=== PATIENT | female | born 1945 | race African-American/Black ===

== ENCOUNTER 2017-05-03 22:06 | Inpatient (IN) | payer OTHER ==
[~2017-05-03] VITALS: Ht 177.8 cm; Wt 100.8 kg
[2017-05-03 22:09] VITALS: BP 176/96
[2017-05-03] MEDS ORDERED: Ipratropium 0.02% Inh Soln 2.5ml UD HHN ONE (22:30)
[2017-05-03] MEDS ORDERED: Solu-MEDROL 125mg Inj IVP ONE (22:30)
[2017-05-03] MEDS ORDERED: Albuterol ud Inhalation HHN ONE (22:30)
[2017-05-03 23:09] LABS: EOSINOPHILS % (AUTO) 0.8 % (0.0-3.0); LYMPHOCYTES % (AUTO) 18.3 % (20.0-45.0); MEAN CORPUSCULAR HEMOGLOBIN 34.6 PG (27.0-31.0); MEAN CORPUSCULAR HGB CONC 32.3 G/DL (32.0-36.0); MEAN CORPUSCULAR VOLUME 107 FL (80-99); MEAN PLATELET VOLUME 9.3 FL (6.5-10.1); MONOCYTES % (AUTO) 5.2 % (1.0-10.0); NEUTROPHILS % (AUTO) 74.6 % (45.0-75.0); PLATELET COUNT 183 K/UL (150-450); RED BLOOD COUNT 3.56 M/UL (4.20-5.40); RED CELL DISTRIBUTION WIDTH 13.5 % (11.6-14.8); WHITE BLOOD COUNT 10.1 K/UL (4.8-10.8)
[2017-05-03 23:26] LABS: TROPONIN I < 0.30 ng/mL (<=0.30)
[2017-05-03 23:27] LABS: ALBUMIN/GLOBULIN RATIO 1.3 (1.0-2.7); CREATININE 1.3 mg/dL (0.5-0.9); GLOMERULAR FILTRATION RATE 49.2 mL/min (>60); POTASSIUM 3.9 mEQ/L (3.4-4.9); TOTAL PROTEIN 6.5 g/dL (6.6-8.7)
--- NOTE | 2017-05-03 23:36 | Emergency Room Report ---
History of Present Illness General Chief Complaint: Dyspnea/Respdistress Source: Patient Present Illness HPI Is a 71-year-old female with a history of COPD. Also history of CHF. She had a long hospital admission to [place] recently. She presents with increasing shortness of breath the last few days. No nausea no vomiting. No fever or chills. No coughing. Worse with exertion. Had to increase her oxygenation at home. Denies any other complaint. No swelling. Allergies: Coded Allergies: No Known Allergies (Unverified , 05/03/17) Patient History Past Medical History: see triage record, old chart reviewed, CAD, CHF, COPD Past Surgical History: other Pertinent Family History: none Social History: Denies: smoking Now: No Immunizations: other Reviewed Nursing Documentation: PMH: Agreed, PSxH: Agreed Nursing Documentation-PMH Past Medical History: No History, Except For Hx Hypertension: Yes Hx COPD: Yes History Of Psychiatric Problem: Yes - depression Review of Systems Eye: Denies: eye pain, blurred vision ENT: Denies: ear pain, nose congestion, throat swelling Respiratory: Reports: shortness of breath, Denies: cough Cardiovascular: Denies: chest pain, palpitations Gastrointestinal: Denies: abdominal pain, diarrhea, nausea, vomiting Musculoskeletal: Denies: back pain, joint pain Skin: Denies: rash Neurological: Denies: headache, numbness Endocrine: Denies: increased thirst, increased urine Hematologic/Lymphatic: Denies: easy bruising All Other Systems: negative except mentioned in HPI Physical Exam Vital Signs Date Time Temp Pulse Resp B/P (MAP) Pulse Ox O2 Delivery O2 Flow Rate FiO2 05/03/17 22:05 98.8 112 21 176/96 96 Room Air 05/03/17 22:36 21 05/03/17 22:36 3.0 vitals with tachycardia and high blood pressure Sp02 EP Interpretation: abnormal - Pulse ox 85% on 2 L. General Appearance: mild distress Head: normocephalic, atraumatic Eyes: bilateral eye PERRL, bilateral eye EOMI ENT: hearing grossly normal, normal pharynx Neck: full range of motion, supple, no meningismus Respiratory: chest non-tender, respiratory distress - Mild, decreased breath sounds Cardiovascular #1: regular rate, rhythm, no murmur Gastrointestinal: normal bowel sounds, non tender, no mass, no organomegaly, no bruit, non-distended Musculoskeletal: back normal, normal range of motion Neurologic: alert, oriented x3 Psychiatric: mood/affect normal Skin: warm/dry Procedures Critical Care Time Critical Care Time Critical care is mandated in this patient who presented with acute on chronic respiratory failure secondary to CHF. Patient require my urgent intervention to attenuate the risks of metabolic collapse which may lead to cardiovascular collapse and . Critical care time is 35 minutes excluding any reportable procedure. Critical care time included evaluation, multiple reevaluation, looking at old charts, interpreting laboratory and diagnostic data, discussing case with patient and family and consultants, and charting. Medical Decision Making Diagnostic Impression: Primary Impression: Acute and chronic respiratory failure with hypoxia Additional Impressions: Acute exacerbation of CHF (congestive heart failure) Qualified Codes: I50.9 - Heart failure, unspecified COPD with exacerbation Acute hypernatremia ER Course She presents with acute on chronic respiratory failure. She diuresed about 200- 300 mL after Lasix. Oxygenation improved. She felt better. Will admit for further workup. Her doctor is at [facility] and there is no but there. Patient be admitted here under service of Dr. Decker. Laboratory Tests Test 05/03/17 22:45 White Blood Count 10.1 K/UL (4.8-10.8) Red Blood Count 3.56 M/UL (4.20-5.40) L Hemoglobin 12.3 G/DL (12.0-16.0) Hematocrit 38.2 % (37.0-47.0) Mean Corpuscular Volume 107 FL (80-99) H Mean Corpuscular Hemoglobin 34.6 PG (27.0-31.0) H Mean Corpuscular Hemoglobin Concent 32.3 G/DL (32.0-36.0) Red Cell Distribution Width 13.5 % (11.6-14.8) Platelet Count 183 K/UL (150-450) Mean Platelet Volume 9.3 FL (6.5-10.1) Neutrophils (%) (Auto) 74.6 % (45.0-75.0) Lymphocytes (%) (Auto) 18.3 % (20.0-45.0) L Monocytes (%) (Auto) 5.2 % (1.0-10.0) Eosinophils (%) (Auto) 0.8 % (0.0-3.0) Basophils (%) (Auto) 1.0 % (0.0-2.0) Sodium Level 150 mEQ/L (135-145) H Potassium Level 3.9 mEQ/L (3.4-4.9) Chloride Level 102 mEQ/L (98-107) Carbon Dioxide Level 35 mEQ/L (20-30) H Anion Gap 13 (5-15) Blood Urea Nitrogen 30 mg/dL (7-23) H Creatinine 1.3 mg/dL (0.5-0.9) H Estimat Glomerular Filtration Rate 49.2 mL/min (>60) Glucose Level 153 mg/dL (74-106) H Calcium Level 9.0 mg/dL (8.6-10.2) Total Bilirubin 0.3 mg/dL (0.0-1.2) Aspartate Amino Transf (AST/SGOT) 24 U/L (5-40) Alanine Aminotransferase (ALT/SGPT) 14 U/L (3-33) Alkaline Phosphatase 59 U/L (35-104) Total Creatine Kinase 84 U/L (26-140) Creatine Kinase MB 2.8 ng/mL (< 3.8) Creatine Kinase MB Relative Index 3.3 Troponin I < 0.30 ng/mL (<=0.30) Pro-B-Type Natriuretic Peptide 8453 pg/mL (0-125) H Total Protein 6.5 g/dL (6.6-8.7) L Albumin 3.7 g/dL (3.5-5.2) Globulin 2.8 g/dL Albumin/Globulin Ratio 1.3 (1.0-2.7) Lab Results Impression labs showed hypernatremia EKG Diagnostic Results Rate: normal Rhythm: NSR ST Segments: no acute changes Rhythm Strip Diag. Results Rhythm Strip Time: 23:35 EP Interpretation: yes Rate: 96 Rhythm: NSR, no PVC's, no ectopy Chest X-Ray Diagnostic Results Chest X-Ray Diagnostic Results : Chest X-Ray Ordered: Yes # of Views/Limited/Complete: 1 View Indication: Shortness of Breath Interpretation: no pneumothorax, other - Cardiomegaly. increased interstitial markings. Impression: Other - cardiomegaly with mild vascular congestion Electronically Signed by: Electronically signed by Arden Bardales MD Last Vital Signs Date Time Temp Pulse Resp B/P (MAP) Pulse Ox O2 Delivery O2 Flow Rate FiO2 05/03/17 22:53 88 18 98 Nasal Cannula 2.0 28 05/03/17 22:09 98.8 176/96 Status: improved Disposition: ADMITTED INPATIENT Condition: Serious ARDEN BARDALES M.D. May 03, 2017 23:36
[2017-05-03 23:37] LABS: CKMB 2.8 ng/mL (< 3.8)
[2017-05-04] VITALS (7 sets, daily range): BP systolic 132–148; BP diastolic 61–93
[2017-05-04] MEDS ORDERED: NITROGLYCERIN0.4 MG SL (01:48)
[2017-05-04] MEDS ORDERED: GABAPENTIN300 MG ORAL (01:48)
[2017-05-04] MEDS ORDERED: ATORVASTATIN CA80 MG ORAL (01:48)
[2017-05-04] MEDS ORDERED: CENTRUM SILVER1 EAC4 PO (01:48)
[2017-05-04] MEDS ORDERED: FUROSEMIDE40 MG ORAL (01:48)
[2017-05-04] MEDS ORDERED: VENLAFAXINE HC225 MG ORAL (01:48)
[2017-05-04] MEDS ORDERED: NORVASC10 MG ORAL (01:48)
[2017-05-04] MEDS ORDERED: LISINOPRIL40 MG ORAL (01:48)
[2017-05-04] MEDS ORDERED: ASPIRIN81 MG ORAL (01:48)
[2017-05-04] MEDS ORDERED: SUPER B-50 COM1 EACH PO (01:48)
[2017-05-04] MEDS ORDERED: METOPROLOL SUCC50 MG ORAL (01:48)
[2017-05-04] MEDS ORDERED: BUSPIRONE HCL5 M2 ORAL (01:48)
[2017-05-04] MEDS ORDERED: Enalaprilat 2.5mg/2ml Inj IV ONE (02:15)
[2017-05-04] MEDS ORDERED: Albuterol/Ipratropium 3ml neb HHN SCH (07:00)
[2017-05-04 09:13] LABS: MEAN CORPUSCULAR HGB CONC 31.8 G/DL (32.0-36.0); MEAN CORPUSCULAR VOLUME 107 FL (80-99); MEAN PLATELET VOLUME 9.2 FL (6.5-10.1); PLATELET COUNT 188 K/UL (150-450); RED BLOOD COUNT 3.49 M/UL (4.20-5.40); WHITE BLOOD COUNT 5.7 K/UL (4.8-10.8)
[2017-05-04 09:32] LABS: ALBUMIN/GLOBULIN RATIO 1.2 (1.0-2.7); CALCIUM 9.2 mg/dL (8.6-10.2); CREATININE 1.2 mg/dL (0.5-0.9); GLOMERULAR FILTRATION RATE 53.9 mL/min (>60); POTASSIUM 3.9 mEQ/L (3.4-4.9); TOTAL PROTEIN 6.6 g/dL (6.6-8.7)
[2017-05-04 09:37] LABS: THYROID STIMULATING HORMONE 0.465 uIU/mL (0.300-4.500)
[2017-05-04 09:54] LABS: LYMPHOCYTES % (MANUAL) 13 % (20-45); NEUTROPHILS % (MANUAL) 82 % (45-75); TOTAL CELLS COUNTED 100
[2017-05-04 09:56] LABS: BAND NEUTROPHILS % (MANUAL) 0 % (0-8); BASOPHILS % (MANUAL) 0 % (0-2); EOSINOPHILS % (MANUAL) 0 % (0-3); PLATELET ESTIMATE ADEQUATE; PLATELET MORPHOLOGY NORMAL; STOMATOCYTES 1+
[2017-05-04] MEDS ORDERED: Nitroglycerin Subl 0.4mg tab SL PRN (10:00)
[2017-05-04] MEDS: Albuterol/Ipratropium 3ml neb HHN SCH ×3 (11:13→19:24)
--- NOTE | 2017-05-04 12:17 | Diagnostic Imaging Report ---
Indication: SOB Technique: One view of the chest Comparison: 07/22/2010 Findings: The heart is enlarged. There is bilateral diffuse interstitial edema. There are probably small pleural effusions bilaterally Impression: Bilateral interstitial edema and probable small bilateral pleural effusions Cardiomegaly
[2017-05-04] MEDS: BusPIRone 5mg Tab ORAL PRN (16:09)
--- NOTE | 2017-05-04 18:48 | History & Physical ---
History and Physical History & Physicial dict chf copd high Na KRIS ZAPATA May 04, 2017 18:48
[2017-05-04] MEDS: Furosemide 40mg tab ORAL SCH (20:00)
[2017-05-04] MEDS: Atorvastatin 80mg tab ORAL SCH (20:54)
[2017-05-05] VITALS (7 sets, daily range): BP systolic 99–128; BP diastolic 49–78
--- NOTE | 2017-05-05 03:15 | History and Physical Report ---
DATE OF ADMISSION: 05/04/2017 History Of Present Illness: This is a 71-year-old woman, who is admitted through the ED because of increasing shortness of breath for several days. She was recently discharged from [facility] after treatment for CHF and COPD. She is on home oxygen. She is a past heavy smoker. She has history of coronary artery disease. Past Medical History: COPD, hypertension, CHF, coronary artery disease, and depression. ALLERGIES: None. REVIEW OF SYSTEMS: Noted in the findings above. CODE STATUS: She desires no CPR. PHYSICAL EXAMINATION: GENERAL: The patient is alert and responds appropriately. Vital Signs: Stable but she was tachycardic and hypotensive when she arrived which has improved. The saturation was low at 85% on 2 L that improved to 92% on 4 L. She is no longer in distress. HEENT: Head is normocephalic. NECK: No jugular venous distention. CHEST: Decreased breath sounds. CARDIAC: Rhythm is regular. There is a grade 2 systolic murmur. ABDOMEN: Soft and nontender. Liver and spleen are not enlarged. EXTREMITIES: No clubbing, cyanosis, or edema. Laboratory and Diagnostic Studies: Notable for elevated BNP at 8000 and sodium elevated at 150. Chest x-ray shows interstitial edema and small effusions. IMPRESSION: 1. Respiratory failure. 2. Congestive heart failure with interstitial edema. 3. Chronic obstructive pulmonary disease. 4. Chronic kidney disease. 5. Hypertension. 6. Hypernatremia. Plan: The patient was given intravenous Lasix and hypotonic fluids to correct electrolytes and improve pulmonary edema. COPD seems stable at this time. Early discharge is anticipated. Jerel Decker M.D. DR: PETE JOB#: [id number] CC: Jerel Decker M.D.; Fax#: [phone] [facility]
[2017-05-05] MEDS: Albuterol/Ipratropium 3ml neb HHN PRN (05:14)
[2017-05-05 07:17] LABS: BASOPHILS % (AUTO) 0.6 % (0.0-2.0); EOSINOPHILS % (AUTO) 1.7 % (0.0-3.0); MEAN CORPUSCULAR HEMOGLOBIN 34.2 PG (27.0-31.0); MEAN CORPUSCULAR HGB CONC 31.8 G/DL (32.0-36.0); MEAN CORPUSCULAR VOLUME 107 FL (80-99); MEAN PLATELET VOLUME 8.9 FL (6.5-10.1); MONOCYTES % (AUTO) 6.1 % (1.0-10.0); NEUTROPHILS % (AUTO) 73.6 % (45.0-75.0); PLATELET COUNT 175 K/UL (150-450); RED BLOOD COUNT 3.41 M/UL (4.20-5.40); RED CELL DISTRIBUTION WIDTH 13.6 % (11.6-14.8); WHITE BLOOD COUNT 9.8 K/UL (4.8-10.8)
[2017-05-05] MEDS: Albuterol/Ipratropium 3ml neb HHN SCH ×4 (07:52→20:39)
[2017-05-05] MEDS: Lisinopril 20mg tab ORAL SCH (09:19)
[2017-05-05] MEDS: Furosemide 40mg tab ORAL SCH ×2 (09:20→18:03)
[2017-05-05] MEDS: Aspirin Baby 81mg ORAL SCH (09:22)
[2017-05-05] MEDS: Metoprolol Succinate XL 50mg tab ORAL SCH (09:22)
[2017-05-05] MEDS: Venlafaxine XR 75mg cap ORAL SCH (13:30)
--- NOTE | 2017-05-05 16:09 | Pulmonology Progress Note ---
Assessment/Plan Assessment/Plan 1. Respiratory failure. 2. Congestive heart failure with interstitial edema. 3. Chronic obstructive pulmonary disease. 4. Chronic kidney disease. 5. Hypertension. 6. Hypernatremia. Na normal dc IVF CHF controlled dc plan to home tomorrow Subjective Constitutional: Reports: no symptoms Respiratory: Denies: shortness of breath Allergies: Coded Allergies: No Known Allergies (Unverified , 05/03/17) Objective Last 24 Hour Vital Signs Date Time Temp Pulse Resp B/P (MAP) Pulse Ox O2 Delivery O2 Flow Rate FiO2 05/05/17 15:44 94 18 94 Nasal Cannula 2.0 05/05/17 15:27 98.2 91 18 107/49 94 Nasal Cannula 2.0 05/05/17 12:00 105 05/05/17 11:55 110 18 96 Nasal Cannula 2.0 05/05/17 11:45 105 18 96 Nasal Cannula 2.0 05/05/17 11:30 98.2 109 18 128/75 99 Nasal Cannula 2.0 05/05/17 09:22 95 120/78 05/05/17 09:22 95 120/78 05/05/17 09:19 120/78 05/05/17 08:07 96.3 95 18 120/78 93 Nasal Cannula 2.0 05/05/17 08:00 103 05/05/17 08:00 106 16 94 Nasal Cannula 2.0 05/05/17 07:50 106 18 93 Nasal Cannula 2.0 05/05/17 05:14 92 16 97 Nasal Cannula 2.0 05/05/17 04:00 98.0 99 20 114/63 98 Room Air 05/05/17 04:00 92 05/05/17 00:07 97.9 88 22 99/54 92 Nasal Cannula 2.0 05/05/17 00:00 111 05/04/17 20:48 97.9 98 20 136/74 96 Room Air 05/04/17 20:00 95 05/04/17 19:44 80 18 96 Nasal Cannula 2.0 05/04/17 19:24 97 16 96 Nasal Cannula 2.0 28 Intake and Output 05/05/17 05/06/17 19:00 07:00 Intake Total 610 ml Balance 610 ml Intake Oral 610 ml # Voids 2 General Appearance: no acute distress Respiratory/Chest: lungs clear Cardiovascular: normal rate Laboratory Tests 05/05/17 06:20: White Blood Count 9.8#, Red Blood Count 3.41L, Hemoglobin 11.7L, Hematocrit 36.7L, Mean Corpuscular Volume 107H, Mean Corpuscular Hemoglobin 34.2H, Mean Corpuscular Hemoglobin Concent 31.8L, Red Cell Distribution Width 13.6, Platelet Count 175, Mean Platelet Volume 8.9, Neutrophils (%) (Auto) 73.6, Lymphocytes (%) (Auto) 18.0L, Monocytes (%) (Auto) 6.1, Eosinophils (%) (Auto) 1.7, Basophils (%) (Auto) 0.6, Pro-B-Type Natriuretic Peptide 4074H Current Medications Medications (Trade) Dose Ordered Sig/Luis Miguel Route PRN Reason Start Time Stop Time Status Last Admin Dose Admin Acetaminophen (Tylenol) 650 mg Q4H PRN ORAL Mild Pain/Temp > 100.5 05/05/17 11:30 06/04/17 11:29 Albuterol/ Ipratropium (DuoNeb 0.5-3(2.5)mg/3ml) 3 ml Q2HR PRN HHN Shortness of Breath 05/04/17 06:15 05/09/17 06:14 05/05/17 05:14 Albuterol/ Ipratropium (DuoNeb 0.5-3(2.5)mg/3ml) 3 ml QIDRT HHN 05/04/17 11:00 05/09/17 06:59 05/05/17 15:44 Amlodipine Besylate (Norvasc) 5 mg DAILY ORAL 05/05/17 09:00 06/04/17 08:59 05/05/17 09:22 Aspirin (ASA) 81 mg DAILY ORAL 05/05/17 09:00 06/04/17 08:59 05/05/17 09:22 Atorvastatin Calcium (Lipitor) 80 mg BEDTIME ORAL 05/04/17 21:00 06/03/17 20:59 05/04/17 20:54 Buspirone HCl (Buspar) 5 mg DAILY PRN ORAL For Anxiety 05/04/17 10:00 06/03/17 09:59 05/04/17 16:09 Furosemide (Lasix) 40 mg BID ORAL 05/04/17 20:00 06/03/17 19:59 05/05/17 09:20 Gabapentin (Neurontin) 300 mg BEDTIME ORAL 05/04/17 21:00 06/03/17 20:59 05/04/17 20:55 Heparin Sodium (Porcine) (Heparin 5000 units/ml) 5,000 units EVERY 12 HOURS SUBQ 05/05/17 21:00 06/04/17 20:59 Lisinopril (Prinivil) 40 mg DAILY ORAL 05/05/17 09:00 06/04/17 08:59 05/05/17 09:19 Metoprolol Succinate (Toprol XL) 75 mg DAILY ORAL 05/05/17 09:00 06/04/17 08:59 05/05/17 09:22 Nitroglycerin (Ntg) 0.4 mg Q 5 MINS PRN SL chest pain 05/04/17 10:00 06/03/17 09:59 Venlafaxine HCl (Effexor-XR) 225 mg DAILY ORAL 05/05/17 12:30 06/04/17 12:29 05/05/17 13:30 Vitamin B Complex (Vitamin B Complex) 1 ea DAILY ORAL 05/05/17 09:00 06/04/17 08:59 05/05/17 09:19 KRIS ZAPATA May 05, 2017 16:09
[2017-05-05] MEDS: Atorvastatin 80mg tab ORAL SCH (20:27)
[2017-05-05] MEDS: Heparin 5000 units/ml inj SUBQ SCH (20:29)
[2017-05-06] MEDS: Albuterol/Ipratropium 3ml neb HHN PRN (00:15)
[2017-05-06 03:32] VITALS: BP 129/78
[2017-05-06] MEDS: BusPIRone 5mg Tab ORAL PRN (03:45)
[2017-05-06] MEDS: Albuterol/Ipratropium 3ml neb HHN SCH ×2 (07:21→11:47)
[2017-05-06 07:50] LABS: CALCIUM 9.3 mg/dL (8.6-10.2); CREATININE 1.2 mg/dL (0.5-0.9); GLOMERULAR FILTRATION RATE 53.9 mL/min (>60); POTASSIUM 3.9 mEQ/L (3.4-4.9)
[2017-05-06 08:00] VITALS: BP 138/67
[2017-05-06] MEDS: Metoprolol Succinate XL 50mg tab ORAL SCH (08:26)
[2017-05-06] MEDS: Furosemide 40mg tab ORAL SCH (08:27)
[2017-05-06] MEDS: Lisinopril 20mg tab ORAL SCH (08:27)
[2017-05-06 08:28] VITALS: BP 138/67
[2017-05-06] MEDS: Aspirin Baby 81mg ORAL SCH (08:28)
[2017-05-06] MEDS: Venlafaxine XR 75mg cap ORAL SCH (08:28)
[2017-05-06] MEDS: Heparin 5000 units/ml inj SUBQ SCH (08:28)
--- NOTE | 2017-05-06 15:17 | Cardiology Report ---
APPROVED REPORT EKG Measurement Heart [id number] Normal sinus rhythm Cannot rule out Anterior infarct, age undetermined Abnormal ECG
--- NOTE | 2017-05-09 11:01 | Discharge Summary ---
Discharge Summary Hospital Course Date of Admission May 04, 2017 at 00:52 Date of Discharge May 06, 2017 at 14:42 Admitting Diagnosis chf,copd exacerbation HPI Arabella Staley is a 71 year old female who was admitted on May 04, 2017 at 00: 52 for Congestive Heart Failure,Chronic Obstructive Hospital Course dc summary #[id number] Discharge Medications Continued Medications: Amlodipine Besylate (Norvasc) 10 Mg Tablet 10 MG ORAL DAILY, TAB Aspirin* (Aspirin*) 81 Mg Tab.chew 81 MG ORAL DAILY, TAB Atorvastatin Calcium* (Lipitor*) 80 Mg Tablet 80 MG ORAL BEDTIME, TAB Buspirone HCl* (Buspirone HCl*) 5 Mg Tablet 5 MG ORAL DAILY PRN for For Anxiety, TAB Furosemide* (Lasix*) 40 Mg Tablet 40 MG ORAL TWICE A DAY, TAB 0 Refills Gabapentin* (Gabapentin*) 300 Mg Capsule 300 MG ORAL BEDTIME, CAP Lisinopril* (Lisinopril*) 40 Mg Tablet 40 MG ORAL DAILY, TAB Metoprolol Succinate* (Metoprolol Succinate*) 50 Mg Tab.er.24h 75 MG ORAL DAILY, TAB Mu-Vits-Min Th/Lycopene/Lutein (Centrum Silver Tablet) 1 Each Tablet 1 EACH PO DAILY, TAB Nitroglycerin (Nitroglycerin) 0.4 Mg Tab.subl 0.4 MG SL PRN for chest pain , TAB Venlafaxine Hcl (Venlafaxine Hcl Er) 225 Mg Tab.er.24 225 MG ORAL DAILY, TAB Vitamin B Complex (Super B-50 Complex) 1 Each Capsule 1 EACH PO DAILY, CAP Discharge Condition Upon Discharge: stable Discharge Disposition Patient was discharged to Home with home health services Discharge Diagnoses: Discharge Instructions Discharge Instructions Special Instructions I have been assigned to complete a D/C Summary on this account. I was not involved in the patient management Sneha Gamble NP (Vanchtein) May 09, 2017 11:01
--- NOTE | 2017-05-10 01:30 | Discharge Summary 2 SIG ---
DATE OF ADMISSION: 05/04/2017 DATE OF DISCHARGE: 05/06/2017 Reason for Admission: 71-year-old female with a history of COPD, CHF, hypertension, coronary artery disease, and depression, presented to emergency department with increased shortness of breath for several days associated with exertion. She was recently discharged from [facility] after extensive treatment for CHF and COPD. She has a home oxygen and reported recent need to increase the O2 flow. She denied fever, chills, cough, nausea, vomiting, or leg swelling. In the emergency department the patient was tachycardic. Blood pressure was elevated - 176/96. Sodium-150. Pro BNP - 8453. Chest x-ray revealed bilateral interstitial edema. Troponin was negative. Creatinine -1.3. BUN-30. Initial pulse oximetry was 85% on 2 liters, which improved to 92% on 4 liters. The patient was admitted for further management. ADMITTING DIAGNOSES: 1. Acute on chronic respiratory failure with hypoxemia. 2. Congestive heart failure with interstitial edema. 3. Chronic obstructive pulmonary disease. 4. Acute hypernatremia. 5. Hypertension. 6. Chronic kidney disease. Hospital Stay: The patient was admitted to telemetry floor. Hypotonic solution initially was provided along with IV Lasix. Next day, sodium down to normal. IV fluids were discontinued. Renal parameters and electrolytes were closely monitored. Creatinine down to 1.2 prior to discharge. Pro BNP down to 4074 prior to discharge. Pulmonary status stable. No evidence of COPD exacerbation. Hypoxemia improved. CHF improved with diuretic. Supplemental oxygen was provided to keep saturation above 92%. Pulmonary toilet was provided as needed. Aspirin and statin were continued. Blood pressure was managed with SOFIA inhibitor, beta-tuan, and calcium channel tuan along with the Lasix. Lasix converted to oral prior to discharge. The patient was stable for discharge home with home health services. FINAL DIAGNOSES: 1. Acute on chronic respiratory failure with hypoxemia, resolved. 2. Congestive heart failure with interstitial edema. 3. Chronic obstructive pulmonary disease. 4. Acute hypernatremia, resolved. 5. Chronic kidney disease. 6. Hypertension. DISCHARGE MEDICATIONS: See medication reconciliation list. Discharge Instructions: The patient was discharged home with home health services. Follow up with primary medical doctor. Jerel Decker M.D. I have been assigned to dictate discharge summary on this account and I was not involved in the patient's management. Sneha GrossJameel garcia DR: CAR JOB#: [id number] CC: HUGH
== END 2017-05-06 14:42 | disposition home health service (06) | DRG 291 ==
LOC: EDBD 22:06 → EMR 23:00 → 2E 05-04 00:52 → EDBEDREQ 05-04 01:24 → 2E 05-04 23:45
DX: I50.9 Heart failure, unspecified (principal); J96.21 Acute and chronic respiratory failure with hypoxia; E87.0 Hyperosmolality and hypernatremia; Z99.81 Dependence on supplemental oxygen; Z66 Do not resuscitate; I25.10 Atherosclerotic heart disease of native coronary artery without angina pectoris; I12.9 Hypertensive chronic kidney disease with stage 1 through stage 4 chronic kidney disease, or unspecified chronic kidney disease; N18.9 Chronic kidney disease, unspecified; J44.9 Chronic obstructive pulmonary disease, unspecified
CPT/HCPCS: 36415; 71010; 80048; 80053; 82550; 82553; 83880; 84443; 84484; 85007; 85025; 93005; 94640; 94664; 94760; 99285; J7620

== ENCOUNTER 2017-07-06 05:17 | Inpatient (IN) | payer OTHER ==
[2017-07-06] VITALS (18 sets, daily range): BP systolic 94–128; BP diastolic 47–83
[~2017-07-06] VITALS: Ht 182.9 cm; Wt 97.1 kg
[~2017-07-06 05:17] MED LIST: ASPIRIN81 MG ORAL; ATORVASTATIN CA80 MG ORAL; BUSPIRONE HCL5 M2 ORAL; CENTRUM SILVER1 EAC4 PO; FUROSEMIDE40 MG ORAL; GABAPENTIN300 MG ORAL; LISINOPRIL40 MG ORAL; METOPROLOL SUCC50 MG ORAL; NITROGLYCERIN0.4 MG SL; NORVASC10 MG ORAL; SUPER B-50 COM1 EACH PO; VENLAFAXINE HC225 MG ORAL
[2017-07-06] MEDS ORDERED: Solu-MEDROL 125mg Inj IVP ONE (05:30)
--- NOTE | 2017-07-06 05:30 | Emergency Room Report ---
History of Present Illness General Chief Complaint: Dyspnea/Respdistress Source: Patient, Medical Record Present Illness HPI 71-year-old female brought in by ambulance with shortness of breath for 6 hours , from assisted. Patient is poor historian and unable to qualify what her shortness of breath feels like. She is not provide clear answers as to whether she has chest pain, fever chills , or cough. History of present illness is otherwise limited. Review of EMR shows history of COPD, CHF, hypertension, coronary artery disease, and depression. Patient was admitted here May 04 the also for shortness of breath. Patient had hypernatremia, CKD. An acute on chronic CHF exacerbation Allergies: Coded Allergies: No Known Allergies (Unverified , 05/03/17) Patient History Past Medical History: other - see history of present illness Past Surgical History: none Pertinent Family History: none Social History: Denies: smoking, alcohol use, drug use Now: No Immunizations: UTD Reviewed Nursing Documentation: PMH: Agreed, PSxH: Agreed Nursing Documentation-PMH Hx Cardiac Problems: Yes Hx Hypertension: Yes Hx COPD: Yes Hx Cancer: No Hx Gastrointestinal Problems: No History Of Psychiatric Problem: Yes - Anxiety Disorder, Major depressive disorder Hx Neurological Problems: No Review of Systems All Other Systems: limited - SOB Physical Exam Vital Signs Date Time Temp Pulse Resp B/P (MAP) Pulse Ox O2 Delivery O2 Flow Rate FiO2 07/06/17 05:12 99.9 83 19 103/79 89 Simple Mask Sp02 EP Interpretation: reviewed, abnormal General Appearance: normal inspection, well appearing, no apparent distress, alert, GCS 15, obese Head: normocephalic, atraumatic Eyes: bilateral eye PERRL, bilateral eye EOMI ENT: normal ENT inspection, hearing grossly normal, normal pharynx, no angioedema, normal voice Neck: normal inspection, full range of motion, supple, no bony tend Respiratory: normal inspection, speaking full sentences, other - poor air movement Cardiovascular #1: regular rate, rhythm, no edema Gastrointestinal: normal inspection, normal bowel sounds, non tender, soft, no guarding, no hernia Genitourinary: no CVA tenderness Musculoskeletal: normal inspection, back normal, normal range of motion, Justin' s Sign negative Neurologic: normal inspection, alert, responsive, county director welfare III-XII nml as tested, motor strength/tone normal, speech normal Psychiatric: normal inspection, judgement/insight normal, mood/affect normal Skin: normal inspection, normal color, no rash Medical Decision Making Diagnostic Impression: Primary Impression: Dyspnea Qualified Codes: R06.00 - Dyspnea, unspecified Additional Impression: Pneumonia Qualified Codes: J18.9 - Pneumonia, unspecified organism ER Course 71-year-old female with shortness of breath for 6 hours Complicated medical history includes COPD and CHF Now with COPD exacerbation likely due to bilateral pneumonia x-ray shows bilateral pneumonia, less likely acute CHF given in April x-ray shows pulmonary congestion and today's x-ray does not also if there is some CHF will improve with BiPAP, Lasix should not be given now given low-normal blood pressure has elevated white count - antibiotics given, blood cultures pending Improved COPD exacerbation after nebs on BiPAP, Solu-Medrol, and IV magnesium ECG is normal sinus rhythm no ischemia Endorsed to Dr Decker at 615am for [facility] admission [facility] EKG Diagnostic Results Rate: normal Rhythm: NSR ST Segments: no acute changes ASA given to the pt in ED: No Rhythm Strip Diag. Results EP Interpretation: yes Rate: 81 Rhythm: NSR, no PVC's, no ectopy Chest X-Ray Diagnostic Results Chest X-Ray Diagnostic Results : Chest X-Ray Ordered: Yes # of Views/Limited/Complete: 1 View Indication: Shortness of Breath EP Interpretation: Yes Interpretation: no pneumothorax, other - +cardiomegaly, newly seen pacemaker , left sided pleural effusion vs consolidation, right sided PNA Electronically Signed by: Dr Kris Francisco MD Last Vital Signs Date Time Temp Pulse Resp B/P (MAP) Pulse Ox O2 Delivery O2 Flow Rate FiO2 07/06/17 05:12 99.9 83 19 103/79 89 Simple Mask Status: improved Disposition: ADMITTED INPATIENT Condition: Serious KRIS FRANCISCO M.D. Jul 06, 2017 05:30
[2017-07-06 05:44] LABS: BASOPHILS % (AUTO) 1.3 % (0.0-2.0); EOSINOPHILS % (AUTO) 0.2 % (0.0-3.0); LYMPHOCYTES % (AUTO) 11.2 % (20.0-45.0); MEAN CORPUSCULAR HEMOGLOBIN 33.1 PG (27.0-31.0); MEAN CORPUSCULAR HGB CONC 30.7 G/DL (32.0-36.0); MEAN CORPUSCULAR VOLUME 108 FL (80-99); MEAN PLATELET VOLUME 9.2 FL (6.5-10.1); MONOCYTES % (AUTO) 5.2 % (1.0-10.0); PLATELET COUNT 167 K/UL (150-450); RED BLOOD COUNT 3.14 M/UL (4.20-5.40); RED CELL DISTRIBUTION WIDTH 12.7 % (11.6-14.8)
[2017-07-06] MEDS ORDERED: ACETAMINOPHEN325 M1 ORAL (05:49)
[2017-07-06] MEDS: Albuterol ud Inhalation HHN SCH ×3 (05:56→06:16)
[2017-07-06] MEDS: Ipratropium 0.02% Inh Soln 2.5ml UD HHN SCH ×3 (05:56→06:16)
[2017-07-06 06:06] LABS: CALCIUM 9.2 MG/DL (8.5-10.1); CHLORIDE 93 MMOL/L (98-107); CREATININE 1.6 MG/DL (0.55-1.30); GLOMERULAR FILTRATION RATE 38.8 mL/min (>60); POTASSIUM 4.9 MMOL/L (3.5-5.1); SODIUM 136 MMOL/L (136-145)
[2017-07-06] MEDS ORDERED: Azithromycin 500mg Inj IV ONE (06:12)
[2017-07-06] MEDS ORDERED: cefTRIAXone 2 GM in NS 55 ML IVPB ONE (06:15)
[2017-07-06] MEDS ORDERED: Azithromycin 500 MG in NS 275 ML IV ONE (06:15)
[2017-07-06 06:21] LABS: ALANINE AMINOTRANSFERASE 34 U/L (12-78); ALBUMIN/GLOBULIN RATIO 0.8 (1.0-2.7); ASPARTATE AMINO TRANSFERASE 30 U/L (15-37); CKMB 1.4 NG/ML (0.0-3.6); TOTAL PROTEIN 7.2 G/DL (6.4-8.2)
[2017-07-06 06:26] LABS: CARBON DIOXIDE 48 MMOL/L (21-32)
[2017-07-06 07:05] LABS: ABG BASE EXCESS 17.6; ABG PCO2 106.1 mmHg (35.0-45.0)
[2017-07-06 07:06] LABS: ABG ALLEN TEST POSITIVE
--- NOTE | 2017-07-06 08:08 | Emergency Room Report ---
History of Present Illness General Chief Complaint: Dyspnea/Respdistress Source: Patient, Medical Record Present Illness Allergies: Coded Allergies: No Known Allergies (Unverified , 05/03/17) Patient History Now: No Nursing Documentation-PMH Hx Cardiac Problems: Yes Hx Hypertension: Yes Hx COPD: Yes Hx Cancer: No Hx Gastrointestinal Problems: No History Of Psychiatric Problem: Yes - Anxiety Disorder, Major depressive disorder Hx Neurological Problems: No Physical Exam Vital Signs Date Time Temp Pulse Resp B/P (MAP) Pulse Ox O2 Delivery O2 Flow Rate FiO2 07/06/17 05:12 99.9 83 19 103/79 89 Simple Mask 07/06/17 05:40 50 Procedures Critical Care Time Critical Care Time i. I feel this is a highly complex case requiring extensive working including EKG/Rhythm strip, Xray/CT/US, Blood/urine lab work, repeat exams while in ED, and administration of strong opiates/narcotics for pain control, admission to hospital or close patient follow up. Total time: 30 min bedside evaluation and treatment excludes procedures (EKG). Reason for critical care: respiratory distress Possible complications: hypotension, hypertension, ID, shock, arrhythmias, metabolic acidosis, end organ damage, respiratory failure. Interventions: abg, intubation Course: Patient admitted to [facility] for CHF exacerbation. On BiPAP. ABG shows PCO2 greater than 100, patient is lethargic. Patient is intubated. Patient will be admitted to ICU Consultations: nursing staff, EMS, family Performed by: Dr Ramesh Tolerated well condition = critical j. because of unstable vital signs this patient had a condition that could potentially threaten life or limb. I feel this is a critical patient who required my full attention while patient was considered critical. Total Critical Care Time excluding procedures was greater than 35 minutes Intubation Intubation : Consent: Emergent Intubation Method: orotracheal Tube Size (cm): 7.0 Medications: Etomidate, Rocuronium Breath Sounds after Intubation: equal Intubation Complications: no complications Post Intubation Xray: Yes Attempts: One Patient Tolerated: Well Complications: None Medical Decision Making Diagnostic Impression: Primary Impression: Dyspnea Qualified Codes: R06.00 - Dyspnea, unspecified Additional Impression: Pneumonia Qualified Codes: J18.9 - Pneumonia, unspecified organism Last Vital Signs Date Time Temp Pulse Resp B/P (MAP) Pulse Ox O2 Delivery O2 Flow Rate FiO2 11/29/17 08:01 60 07/06/17 07:15 81 18 106/60 86 Bi-pap 07/06/17 06:50 99.7 Status: improved Disposition: ADMITTED INPATIENT Condition: Critical Referrals: SILVIA MEMBRENO (PCP) ANDREA RAMESH M.D. Jul 06, 2017 08:08
[2017-07-06] MEDS ORDERED: Acetaminophen 650mg/20.3ml NG PRN (08:45)
[2017-07-06] MEDS ORDERED: Venlafaxine 25mg tab ORAL SCH (09:00)
[2017-07-06] MEDS: LORazepam Inj 2mg/ml 1ml IV PRN ×2 (09:09→19:54)
[2017-07-06] MEDS: Zoysn 3.37gm in D5W 55ml IVPB SCH ×2 (10:47→18:07)
[2017-07-06] MEDS: Pantoprazole Inj IVP SCH (10:47)
[2017-07-06] MEDS: Aspirin Baby 81mg NG SCH (10:47)
--- NOTE | 2017-07-06 10:53 | History & Physical ---
History and Physical History & Physicial History Of Present Illness: This is a 71-year-old woman, who is admitted through the ED from a SNF because of increasing shortness of breath for several days. She recently had a defibrillator placed for CHF. She has severe COPD and was here for a few days in April,. She is on home oxygen. She is a past heavy smoker. She has history of coronary artery disease. The pCO2 was >100 and she was intubated in the ER. Past Medical History: COPD, hypertension, CHF, coronary artery disease, and depression. ALLERGIES: None. REVIEW OF SYSTEMS: Noted in the findings above. CODE STATUS: She desires no CPR but full treatment including intubation if needed PHYSICAL EXAMINATION: GENERAL: The patient is alert and agitated on the ventilator Vital Signs: Stable but she tachycardic. HEENT: Head is normocephalic. Oral ETT on vent. NECK: No jugular venous distention. CHEST: Decreased breath sounds. L subclavian surgical wound and pacemaker; ? cellulitis CARDIAC: Rhythm is regular. There is a grade 2 systolic murmur. ABDOMEN: Soft and nontender. Liver and spleen are not enlarged. EXTREMITIES: No clubbing, cyanosis, or edema. Laboratory and Diagnostic Studies: Notable for elevated BNP. Chest x-ray shows edema IMPRESSION: 1. Respiratory failure. 2. Congestive heart failure with pulm edema. 3. Chronic obstructive pulmonary disease. 4. Chronic kidney disease. 5. Hypertension. 6. Possible pneumonia and sepsis Plan: vent, HHN lasix abx wean when able called cardiology casi PERAZAKRIS PICHARDO Jul 06, 2017 10:53
[2017-07-06 11:00] LABS: ABG ALLEN TEST POSITIVE; ABG BASE EXCESS 16.5; ABG PCO2 56.4 mmHg (35.0-45.0)
[2017-07-06] MEDS: Metoprolol Tartrate 50mg tab ORAL SCH ×2 (11:08→21:32)
--- NOTE | 2017-07-06 11:59 | Diagnostic Imaging Report ---
Indication: SOB Technique: One view of the chest Comparison: 05/03/2017 Findings: There is opacification of left mid and lower hemithorax. There is considerable consolidation at the right lung base. There is evidence of a right-sided pleural effusion. There is generalized interstitial congestion. Heart border is obscured, heart likely somewhat enlarged. Interim placement of left chest AICD. Impression: Opacification of the left mid and lower lung, probably due to large pleural effusion, underlying parenchymal consolidation/edema also a possibility. Less extensive right basilar opacity, likely combination of pleural fluid and parenchymal consolidation/edema Generalized pulmonary basilar congestion AICD, new since previous exam Borderline cardiomegaly
[2017-07-06] MEDS ORDERED: Venlafaxine XR 75mg cap ORAL SCH (12:00)
--- NOTE | 2017-07-06 12:04 | Diagnostic Imaging Report ---
Indication: TUBE PLCMT STATUS post intubation, shortness of breath Technique: One view of the chest Comparison: 2 hours earlier Findings: Interim endotracheal intubation, satisfactory position of endotracheal tube approximately 5 cm above the anthony. Extensive bilateral interstitial edema and airspace opacities persists, although there is some improvement of aeration at the right lung base. Bilateral left greater than right pleural effusions persists. Left chest unifocal AICD is again demonstrated Impression: Satisfactory endotracheal intubation Persistent pulmonary edema and/or infiltrates, and bilateral pleural effusions, with some improvement of aeration of the right lung base
[2017-07-06] MEDS: Albuterol/Ipratropium 3ml neb IN-LINE SCH ×4 (12:59→23:02)
[2017-07-06] MEDS: Vancomycin 1500mg IVPB SCH (13:05)
[2017-07-06] MEDS: Venlafaxine HCl 37.5mg Tab NG SCH ×2 (13:05→18:07)
--- NOTE | 2017-07-06 16:12 | Cardiology Report ---
APPROVED REPORT EXAM: Two-dimensional and M-mode echocardiogram with Doppler and color Doppler. INDICATION Arrhythmia M-Mode DIMENSIONS IVSd1.1 (0.7-1.1cm)Left Atrium (MM)5.2 (1.6-4.0cm) LVDd5.2 (3.5-5.6cm)Aortic Root3.0 (2.0-3.7cm) PWd1.3 (0.7-1.1cm)Aortic Cusp Exc.2.0 (1.5-2.0cm) LVDs4.0 (2.5-4.0cm) PWs1.3 cm Normal left ventricular chamber size. Mild global left ventricular hypokinesis. Left ventricular ejection fraction estimated to be 35-40%. No evidence of left ventricular hypertrophy. Large posterior pleural effusion. Mild bi-atrial enlargement by 2D. Focal aortic valve sclerosis with adequate cusp excursion. Thickened mitral valve leaflets with normal excursion. Mild mitral annulus and aortic root calcification. Pulmonic valve not well visualized. Normal tricuspid valve structure. IVC dilated at 2.4cm non-collapsible with respiration. Probable pacemaker wire present in the right side chambers. A color flow and spectral Doppler study was performed and revealed: No aortic regurgitation. Severe mitral regurgitation. Mitral diastolic function not obtainable due to arrhythmia. Trace tricuspid regurgitation.
[2017-07-06] MEDS ORDERED: Sterile Water Irrig 1000ml IRRIG ONE (16:18)
--- NOTE | 2017-07-06 16:42 | Cardiology Report ---
APPROVED REPORT EKG Measurement Heart [id number] Normal sinus rhythm Possible Anterior infarct, age undetermined Abnormal ECG
--- NOTE | 2017-07-06 20:45 | Consultation ---
DATE OF CONSULTATION: 07/06/2017 CARDIOLOGY CONSULTATION REQUESTING PHYSICIAN: Jerel Decker M.D. REASON FOR CONSULTATION: Ventricular arrhythmias following ICD implant. HISTORY OF PRESENT ILLNESS: This is a 71-year-old female, who has had several days of increasing shortness of breath. She recently was hospitalized at [facility] and had a defibrillator placed for refractory heart failure and presumably prevention of sudden cardiac approximately one week ago. Since admission, she has been noted to have frequent ventricular ectopics and some short runs of nonsustained ventricular tachycardia. The patient was noted to have severe respiratory acidosis in the emergency room with CO2 over 100 and required intubation and is now mechanically ventilated. PAST MEDICAL HISTORY: Chronic obstructive pulmonary disease, chronic respiratory acidosis, hypertension, coronary artery disease, cardiomyopathy with history of congestive heart failure, paroxysmal ventricular arrhythmias, depression, and status post Biotronik cardiac defibrillator implant. MEDICATIONS: Prior to admission, reviewed and reconciled. ALLERGIES: None. SOCIAL HISTORY: Greater than 50 pack year smoker. No alcohol or substance abuse. FAMILY HISTORY: Noncontributory. REVIEW OF SYSTEMS: Cannot be obtained from the patient at this time, as she is intubated, however, the patient's medical records including residential chart and prior records from [facility] were reviewed in detail, 30 minutes time spent and all pertinent data as outlined above. PHYSICAL EXAMINATION: GENERAL: She is sedated at this time, previously agitated and alert, orally intubated and mechanically ventilated. LUNGS: With bilateral coarse breath sounds and rhonchi. CARDIAC: Regular rhythm rate. Normal S1 and S2 with a 2/6 systolic murmur at the apex. ABDOMEN: Soft and nontender. EXTREMITIES: Without clubbing, cyanosis, or edema. The left subclavian region has a surgical wound with ICD pocket site and slight erythema. There is no drainage. NEUROLOGIC: Reveals the patient to be presently sedated, but moves all extremities in response to pain. LABORATORY AND DIAGNOSTIC DATA: White count 12 and hemoglobin 10. Sodium 136, potassium 4.9, bicarbonate 28, BUN 32 and creatinine 1.6. Troponin 0.045. Pro-natriuretic peptide over 10,000. Albumin 3.2. Chest x-ray reveals pulmonary edema with pleural effusion. Her EKG revealed sinus rhythm, nonspecific ST-T wave changes and poor R-wave progression. IMPRESSION: 1. Acute on chronic respiratory acidosis. 2. Compensatory metabolic alkalosis. 3. Paroxysmal ventricular tachycardia. 4. Acute on chronic systolic and diastolic congestive heart failure. 5. Recently implanted cardiac defibrillator, possible cellulitis. 6. Mild protein-calorie malnutrition. PLAN: Ventilator support. Diuresis. Consider acetazolamide, broad-spectrum antibiotics. Angiotensin-converting enzyme inhibitor therapy if blood pressure can tolerate. Avoid beta-blockers in view of chronic obstructive pulmonary disease and bronchospasm. Consider antiarrhythmic therapy with amiodarone. Defibrillator interrogation to be arranged. Víctor Kuhn M.D. DR: MACRINA JOB#: [id number] CC:
[2017-07-06] MEDS: Atorvastatin 80mg tab ORAL SCH (21:33)
[2017-07-06] MEDS ORDERED: Etomidate 40mg/20ml Inj IV ONE (22:42)
[2017-07-06] MEDS ORDERED: Zemuron 50mg/5ml Inj IV ONE (22:42)
[2017-07-07] VITALS (24 sets, daily range): BP systolic 93–127; BP diastolic 46–85
[2017-07-07] MEDS: Zoysn 3.37gm in D5W 55ml IVPB SCH ×3 (01:58→17:30)
[2017-07-07] MEDS: Albuterol/Ipratropium 3ml neb IN-LINE SCH ×6 (02:35→22:55)
[2017-07-07] MEDS: LORazepam Inj 2mg/ml 1ml IV PRN ×3 (02:47→19:04)
[2017-07-07 05:00] LABS: BASOPHILS % (AUTO) 0.5 % (0.0-2.0); EOSINOPHILS % (AUTO) 0.1 % (0.0-3.0); LYMPHOCYTES % (AUTO) 8.1 % (20.0-45.0); MEAN CORPUSCULAR HEMOGLOBIN 32.9 PG (27.0-31.0); MEAN CORPUSCULAR HGB CONC 32.1 G/DL (32.0-36.0); MEAN CORPUSCULAR VOLUME 103 FL (80-99); MEAN PLATELET VOLUME 8.5 FL (6.5-10.1); MONOCYTES % (AUTO) 8.1 % (1.0-10.0); NEUTROPHILS % (AUTO) 83.2 % (45.0-75.0); PLATELET COUNT 133 K/UL (150-450); RED CELL DISTRIBUTION WIDTH 12.5 % (11.6-14.8); WHITE BLOOD COUNT 10.8 K/UL (4.8-10.8)
[2017-07-07 05:47] LABS: ALANINE AMINOTRANSFERASE 26 U/L (12-78); ALBUMIN/GLOBULIN RATIO 0.8 (1.0-2.7); ANION GAP 2 mmol/L (5-15); ASPARTATE AMINO TRANSFERASE 22 U/L (15-37); CALCIUM 8.8 MG/DL (8.5-10.1); CARBON DIOXIDE 40 MMOL/L (21-32); CHLORIDE 95 MMOL/L (98-107); CHOLESTEROL 142 MG/DL (< 200); CHOLESTEROL/HDL RATIO 2.9 (3.3-4.4); CREATININE 2.3 MG/DL (0.55-1.30); GLOMERULAR FILTRATION RATE 25.5 mL/min (>60); POTASSIUM 3.5 MMOL/L (3.5-5.1); SODIUM 138 MMOL/L (136-145); THYROID STIMULATING HORMONE 1.439 uiU/mL (0.358-3.740); TOTAL PROTEIN 5.5 G/DL (6.4-8.2)
[2017-07-07 08:14] LABS: ABG PCO2 52.2 mmHg (35.0-45.0)
[2017-07-07 08:15] LABS: ABG ALLEN TEST POSITIVE; ABG BASE EXCESS 21.7
[2017-07-07 09:57] LABS: URIC ACID 8.9 MG/DL (2.6-7.2)
[2017-07-07] MEDS: Aspirin Baby 81mg NG SCH (10:04)
[2017-07-07] MEDS: Venlafaxine HCl 37.5mg Tab NG SCH ×3 (10:04→17:29)
[2017-07-07] MEDS: Metoprolol Tartrate 50mg tab ORAL SCH ×2 (10:05→20:45)
[2017-07-07] MEDS: Pantoprazole Inj IVP SCH (10:05)
[2017-07-07] MEDS: Solu-MEDROL 40mg Inj IVP SCH ×2 (10:32→20:44)
[2017-07-07 11:45] LABS: APPEARANCE,URINE CLEAR; KETONES,URINE NEGATIVE (NEGATIVE); LEUKOCYTE ESTERASE ,URINE 1+ (NEGATIVE); NITRITE,URINE NEGATIVE (NEGATIVE); PH,URINE 5 (4.5-8.0); PROTEIN,URINE 2+ (NEGATIVE); UROBILINOGEN,URINE NORMAL MG/DL (0.0-1.0)
[2017-07-07 11:48] LABS: BACTERIA,URINE FEW /HPF; RBC,URINE 0-2 /HPF (0 - 2); SQUAMOUS EPITHELIAL CELL,UR FEW /LPF (NONE/OCC)
[2017-07-07] MEDS: Vancomycin 1500mg IVPB SCH (13:03)
[2017-07-07] MEDS: Losartan 50mg tab ORAL SCH (13:17)
--- NOTE | 2017-07-07 13:20 | Pulmonology Progress Note ---
Assessment/Plan Assessment/Plan 1. Respiratory failure. 2. Congestive heart failure with pulm edema. 3. Chronic obstructive pulmonary disease. 4. Chronic kidney disease. 5. Hypertension. 6. Sepsis, BC+ GPC clusters Plan: vent, HHN lasix abx wean when able not ready to wean Subjective ROS Limited/Unobtainable: Yes Allergies: Coded Allergies: No Known Allergies (Unverified , 05/03/17) Objective Last 24 Hour Vital Signs Date Time Temp Pulse Resp B/P (MAP) Pulse Ox O2 Delivery O2 Flow Rate FiO2 07/07/17 13:17 130/79 07/07/17 13:00 97 20 126/83 97 Mechanical Ventilator 60 07/07/17 12:45 97 20 50 07/07/17 12:00 98.5 91 20 110/64 96 Mechanical Ventilator 60 07/07/17 12:00 60 07/07/17 11:05 97 20 96 Mechanical Ventilator 60 07/07/17 11:00 98 24 116/74 99 Mechanical Ventilator 60 07/07/17 10:47 60 07/07/17 10:45 93 23 97 Mechanical Ventilator 5.0 60 07/07/17 10:43 95 20 60 07/07/17 10:05 95 106/60 07/07/17 10:00 95 20 111/81 95 Mechanical Ventilator 60 07/07/17 09:00 95 20 106/60 97 Mechanical Ventilator 60 07/07/17 08:57 96 22 60 07/07/17 08:00 98.7 96 22 121/75 96 Mechanical Ventilator 60 07/07/17 08:00 60 07/07/17 08:00 90 07/07/17 07:14 87 20 95 Mechanical Ventilator 60 07/07/17 07:13 60 07/07/17 07:11 92 20 94 Mechanical Ventilator 6.0 60 07/07/17 07:08 92 20 60 07/07/17 07:00 94 22 116/63 95 Mechanical Ventilator 60 07/07/17 06:00 83 22 108/61 95 Mechanical Ventilator 60 07/07/17 05:12 90 20 60 07/07/17 05:00 91 22 119/72 95 Mechanical Ventilator 60 07/07/17 04:00 60 07/07/17 04:00 98.6 85 20 96/58 96 Mechanical Ventilator 60 07/07/17 04:00 94 07/07/17 03:00 92 22 93/46 95 Mechanical Ventilator 60 07/07/17 02:45 85 20 99 Mechanical Ventilator 60 07/07/17 02:35 60 07/07/17 02:35 86 20 98 Mechanical Ventilator 60 07/07/17 02:34 87 20 60 07/07/17 02:00 88 22 94/59 98 Mechanical Ventilator 60 07/07/17 01:16 85 20 60 07/07/17 01:00 88 22 109/57 95 Mechanical Ventilator 60 07/07/17 00:00 98.9 85 20 112/54 97 Mechanical Ventilator 60 07/07/17 00:00 60 07/07/17 00:00 83 07/06/17 23:15 85 20 97 Mechanical Ventilator 60 07/06/17 23:02 60 07/06/17 23:01 81 20 96 Mechanical Ventilator 60 07/06/17 23:00 87 20 102/60 97 Mechanical Ventilator 60 07/06/17 23:00 81 20 60 07/06/17 22:00 84 20 107/76 97 Mechanical Ventilator 60 07/06/17 21:32 83 102/75 07/06/17 21:18 83 18 60 07/06/17 21:00 81 20 96/57 100 Mechanical Ventilator 60 07/06/17 20:00 98.6 84 20 102/75 99 Mechanical Ventilator 60 07/06/17 20:00 81 07/06/17 20:00 60 07/06/17 19:30 89 21 100 Mechanical Ventilator 60 07/06/17 19:21 60 07/06/17 19:19 83 20 98 Mechanical Ventilator 60 07/06/17 19:17 83 20 60 07/06/17 19:00 83 20 101/64 98 Mechanical Ventilator 60 07/06/17 18:00 82 20 105/83 98 Mechanical Ventilator 60 07/06/17 17:32 85 20 100/66 95 Mechanical Ventilator 60 07/06/17 17:30 82 20 60 07/06/17 17:00 85 20 100/66 96 Mechanical Ventilator 60 07/06/17 16:00 86 07/06/17 16:00 98.6 85 20 113/50 97 Mechanical Ventilator 60 07/06/17 16:00 60 07/06/17 15:30 78 20 100 Mechanical Ventilator 15.0 60 07/06/17 15:18 60 07/06/17 15:18 77 20 99 Mechanical Ventilator 15.0 60 07/06/17 15:17 77 20 60 07/06/17 15:00 81 20 116/57 97 Mechanical Ventilator 60 07/06/17 14:00 87 20 95/75 100 Mechanical Ventilator 60 07/06/17 13:52 98.5 Intake and Output 07/07/17 07/08/17 19:00 07:00 Intake Total 127.50 ml Output Total 270 ml Balance -142.50 ml IV Total 27.50 ml Tube Feeding 100 ml Output Urine Total 270 ml General Appearance: no acute distress HEENT: atraumatic Respiratory/Chest: decreased breath sounds Cardiovascular: normal rate Abdomen: soft, non tender Microbiology Date/Time Source Procedure Growth Status 07/06/17 05:20 Blood Blood Culture - Final Complete Laboratory Tests 07/07/17 04:00: White Blood Count 10.8, Red Blood Count 2.60L, Hemoglobin 8.5L, Hematocrit 26.6L , Mean Corpuscular Volume 103H, Mean Corpuscular Hemoglobin 32.9H, Mean Corpuscular Hemoglobin Concent 32.1, Red Cell Distribution Width 12.5, Platelet Count 133L, Mean Platelet Volume 8.5, Neutrophils (%) (Auto) 83.2H, Lymphocytes (%) (Auto) 8.1L, Monocytes (%) (Auto) 8.1, Eosinophils (%) (Auto) 0.1, Basophils (%) (Auto) 0.5, Sodium Level 138, Potassium Level 3.5, Chloride Level 95L, Carbon Dioxide Level 40H, Anion Gap 2L, Blood Urea Nitrogen 41H, Creatinine 2.3H, Estimat Glomerular Filtration Rate 25.5, Glucose Level 121H, Uric Acid 8.9H, Calcium Level 8.8, Total Bilirubin 0.7, Aspartate Amino Transf ( AST/SGOT) 22, Alanine Aminotransferase (ALT/SGPT) 26, Alkaline Phosphatase 57, Total Creatine Kinase 37, Creatine Kinase MB 0.9, Pro-B-Type Natriuretic Peptide 6462H, Total Protein 5.5L, Albumin 2.5L, Globulin 3.0, Albumin/Globulin Ratio 0.8L, Triglycerides Level 82, Cholesterol Level 142, LDL Cholesterol 82, HDL Cholesterol 49, Cholesterol/HDL Ratio 2.9L, Thyroid Stimulating Hormone (TSH ) 1.439 07/07/17 08:00: Arterial Blood pH 7.566*H, Arterial Blood Partial Pressure CO2 52.2H, Arterial Blood Partial Pressure O2 68.3L, Arterial Blood HCO3 46.3H, Arterial Blood Oxygen Saturation 90.0L, Arterial Blood Base Excess 21.7, Alfredo Test Positive 07/07/17 11:00: Urine Color Yellow, Urine Appearance Clear, Urine pH 5, Urine Specific [place] 1.010, Urine Protein 2+H, Urine Glucose (UA) Negative, Urine Ketones Negative, Urine Occult Blood Negative, Urine Nitrite Negative, Urine Bilirubin Negative, Urine Urobilinogen Normal, Urine Leukocyte Esterase 1+H, Urine RBC 0-2, Urine WBC 2-4, Urine Squamous Epithelial Cells Few, Urine Bacteria Few, Urine Random Creatinine [Pending], Urine Random Microalbumin [Pending], Urine Microalbumin/ Creatinine Ratio [Pending] 07/07/17 11:49: Random Vancomycin Level 12.6 Current Medications Medications (Trade) Dose Ordered Sig/Luis Miguel Route PRN Reason Start Time Stop Time Status Last Admin Dose Admin Acetaminophen (Tylenol) 650 mg Q4H PRN NG Mild Pain/Temp > 100.5 07/06/17 08:45 08/05/17 08:44 07/06/17 13:22 Albuterol/ Ipratropium (Albuterol/ Ipratropium) 3 ml Q4HRT IN-LINE 07/06/17 11:00 07/11/17 10:59 07/07/17 10:43 Aspirin (ASA) 81 mg DAILY NG 07/06/17 09:30 08/05/17 09:29 07/07/17 10:04 Atorvastatin Calcium (Lipitor) 80 mg BEDTIME ORAL 07/06/17 21:00 08/05/17 20:59 07/06/17 21:33 Furosemide (Lasix) 40 mg EVERY 12 HOURS IV 07/06/17 09:30 08/05/17 09:29 07/07/17 10:05 Lorazepam (Ativan 2mg/ml 1ml) 0.5 mg EVERY 3 HOURS PRN IV For Anxiety 07/06/17 08:45 07/13/17 08:44 07/07/17 02:47 Losartan Potassium (Cozaar) 100 mg DAILY ORAL 07/07/17 13:00 08/06/17 12:59 07/07/17 13:17 Methylprednisolone Sodium Succinate (Solu-MEDROL) 40 mg EVERY 12 HOURS IVP 07/07/17 09:00 08/06/17 08:59 07/07/17 10:32 Metoprolol Tartrate (Lopressor) 50 mg Q12HR ORAL 07/06/17 09:30 08/05/17 09:29 07/07/17 10:05 Pantoprazole (Protonix) 40 mg DAILY IVP 07/06/17 11:00 08/05/17 10:59 07/07/17 10:05 Piperacillin Sod/ Tazobactam Sod 3.375 gm/Dextrose 55 ml @ 13.75 mls/ hr Q8H IVPB 07/06/17 10:00 07/13/17 09:59 07/07/17 10:18 Vancomycin HCl (Vanco rx to dose) 1 ea DAILY PRN MISC Per rx protocol 07/06/17 08:45 08/05/17 08:44 Vancomycin HCl/ Dextrose 250 ml @ 125 mls/hr Q24H IVPB 07/06/17 12:00 07/11/17 11:59 07/07/17 13:03 Venlafaxine HCl (Effexor) 75 mg THREE TIMES A DAY NG 07/06/17 13:00 08/05/17 12:59 07/07/17 13:16 KRIS ZAPATA Jul 07, 2017 13:20
--- NOTE | 2017-07-07 13:53 | Diagnostic Imaging Report ---
Indication: Dyspnea Technique: One view of the chest Comparison: 07/06/2017 Findings: Less optimal inspiration currently Left chest AICD is again demonstrated. Bilateral left greater than right pleural effusions, basilar interstitial and airspace opacities are again demonstrated,, difficult to compare as the inspiration is less optimal on the current exam, and positioning is upright currently, supine previously. Suspect findings are overall unchanged. Interstitial congestion appears to improve somewhat, however. Stable satisfactory positions of endotracheal and nasogastric tubes Impression: Bilateral pleural effusions and bilateral basilar airspace disease, probably not significantly changed over one day, allowing for differences in positioning. Suspect slight improvement of interstitial congestion Stable tube and line positions as described
--- NOTE | 2017-07-07 17:15 | Consultation ---
DATE OF CONSULTATION: 07/07/2017 NEPHROLOGY CONSULTATION CONSULTING PHYSICIAN: Rolando Camara M.D. REFERRING PHYSICIAN: Jerel Decker M.D. REASON FOR CONSULTATION: Rise in BUN and creatinine. HISTORY OF PRESENT ILLNESS: The patient presents to [facility] with shortness of breath and respiratory failure and is now intubated in the ICU. There is a long history of COPD and smoking and there is a history of congestive heart failure and chest x-ray shows evidence of congestive heart failure and pulmonary edema. There is a history of hypertension, hyperlipidemia, depression. PAST SURGICAL HISTORY: She cannot state, possibly tonsils. ALLERGIES: None noted on the transfer records. MEDICATIONS: At the [facility] include amlodipine 10 mg daily, aspirin 81 mg daily, atorvastatin 80 mg daily, BuSpar 5 mg b.i.d., centrum one tablet daily, Dulcolax suppository p.r.n., Effexor XR 150 mg daily in addition to 37.5 mg two tablets daily for a total of 225 mg daily, furosemide 80 mg daily, gabapentin 300 mg daily, [place] 5/325 mg every four hours p.r.n., inhalation with DuoNeb every four hours, lisinopril 5 mg daily, metoprolol succinate 25 mg daily, milk of magnesia, nitroglycerin p.r.n., and Tylenol p.r.n. HABITS: She was a heavy smoker in the past. REVIEW OF SYSTEMS: Difficult. She is intubated, but major problems are her CHF and COPD as above. PHYSICAL EXAMINATION: GENERAL: The patient is an alert lady, intubated in the intensive care unit. BMI is 29.7. VITAL SIGNS: Temperature 98.5 degrees, pulse 91, respirations 20, and blood pressure 110/64. HEENT: Sclerae are nonicteric. Ocular motions intact in all directions. She is orally intubated. NECK: No adenopathy. LUNGS: Bilateral rhonchi. HEART: Rhythm is regular. I hear no murmur. ABDOMEN: Soft, obese. No organomegaly or masses. EXTREMITIES: No edema, cyanosis, or clubbing. PERTINENT LABORATORY AND DIAGNOSTIC DATA: The chest x-ray shows evidence of congestive heart failure and cardiomegaly. Her intake and output was 891 in and 825 out last night. Other laboratory, white count 10.8, hemoglobin 8.5. Hemoglobin was 10.4 on 07/06/2017. Sodium 138, potassium 3.5, chloride 95, CO2 40, BUN 41, and creatinine 2.3. Note on 07/06/2017, BUN 32 and creatinine 1.6. Glucose is 121. Uric acid is 8.9. AST and ALT are normal. CPK 53 and 37. Troponin 0.045. BNP 6462. Albumin is 2.5. Cholesterol 142. Urinalysis shows 2+ protein, 0 to 2 red cells, and 2 to 4 white cells per high-power field. IMPRESSION: The patient has acute kidney injury likely superimposed on chronic kidney disease. Of note on 07/05/2017, she had a BUN of 23 and a creatinine 1.25. The worsening renal function is most likely due to cardiorenal syndrome, low ejection fraction, and diuresis. Echocardiogram is reviewed shows low ejection fraction and moderate mitral regurgitation. PLAN: At this time despite rise in BUN and creatinine, we need to continue diuretics and treatment for respiratory failure. I expect that BUN and creatinine may worsen with the above therapy. I would keep her on SOFIA inhibitors and/or ARBs as long as her potassium and blood pressure remained acceptable. The patient remains at high risk. She does have proteinuria and underlying renal disease may be due to hypertensive heart disease or possibly diabetic or other renal disease to be determined. Her condition is critical. Detailed orders are reviewed for her renal disease. Thank you so much for allowing me to participate in the care of this patient. Rolando Camara M.D. DR: Preethi JOB#: [id number] CC:
[2017-07-07] MEDS: Atorvastatin 80mg tab ORAL SCH (20:44)
[2017-07-07] MEDS ORDERED: Metoprolol 5mg/5ml Inj IVPB ONE (22:15)
[2017-07-07] MEDS ORDERED: KCl 10% 40mEq/30ml liquid NG ONE (22:15)
[2017-07-08] VITALS (24 sets, daily range): BP systolic 103–156; BP diastolic 65–122
--- NOTE | 2017-07-08 | Progress Note ---
DATE: 07/07/2017 CARDIOLOGY PROGRESS NOTE SUBJECTIVE: The patient remains in the intensive care unit. Condition remains critical with guarded prognosis. The patient had developed rapid atrial fibrillation. She continues to have evidence of pulmonary edema as well. She is orally intubated. Mechanically ventilated. PHYSICAL EXAMINATION: VITAL SIGNS: Blood pressure 99/54, pulse 128, respiratory rate 20, and afebrile. GENERAL: Orally intubated, mechanically ventilated. LUNGS: Coarse breath sounds. Scattered rales. Irregularly irregular rhythm. Normal S1, S2. ABDOMEN: Soft. EXTREMITIES: 1+ edema. ICD pocket site with some erythema. Blood cultures are positive for gram-positive cocci in clusters. LABORATORY DATA: White count 10.8, hemoglobin 8.5, potassium 3.5, BUN 41, creatinine 2.3. Pro-natriuretic peptide 6400, albumin 2.5. TSH 1.4. IMPRESSION: 1. Respiratory failure. 2. Acute on chronic systolic and diastolic congestive heart failure. 3. Paroxysmal atrial fibrillation with rapid ventricular response. 4. Cardiac defibrillator. 5. Chronic obstructive pulmonary disease with paroxysmal bronchospasm. 6. Hypertensive heart disease. 7. Gram-positive bacteremia. 8. Increased risk for endovascular infection. 9. Critical and guarded. PLAN: 1. Additional beta-blockade by IV route for rate control. 2. Continue ventilator support. 3. Potassium replacement. 4. Antibiotics per Infectious Disease information consultant. 5. Consider CLARIBEL for better evaluation of defibrillator leads and cardiac valves. 6. Continue cautious diuresis, bronchodilators, and respiratory hygiene. 7. Weaning off vent per it account manager. 8. Transfuse for hemoglobin less than 8 g. Víctor Kuhn M.D. DR: SALVATORE JOB#: [id number] CC:
[2017-07-08] MEDS: Zoysn 3.37gm in D5W 55ml IVPB SCH ×3 (02:14→18:58)
[2017-07-08] MEDS: Albuterol/Ipratropium 3ml neb IN-LINE SCH ×5 (03:00→15:00)
[2017-07-08 05:14] LABS: MEAN CORPUSCULAR HEMOGLOBIN 34.3 PG (27.0-31.0); MEAN CORPUSCULAR HGB CONC 32.4 G/DL (32.0-36.0); MEAN CORPUSCULAR VOLUME 106 FL (80-99); MEAN PLATELET VOLUME 8.9 FL (6.5-10.1); PLATELET COUNT 157 K/UL (150-450); RED BLOOD COUNT 2.81 M/UL (4.20-5.40); RED CELL DISTRIBUTION WIDTH 13.1 % (11.6-14.8); WHITE BLOOD COUNT 13.6 K/UL (4.8-10.8)
[2017-07-08 05:39] LABS: ALANINE AMINOTRANSFERASE 30 U/L (12-78); ALBUMIN/GLOBULIN RATIO 0.8 (1.0-2.7); ANION GAP 5 mmol/L (5-15); ASPARTATE AMINO TRANSFERASE 24 U/L (15-37); CALCIUM 9.3 MG/DL (8.5-10.1); CARBON DIOXIDE 39 MMOL/L (21-32); CHLORIDE 94 MMOL/L (98-107); CREATININE 2.3 MG/DL (0.55-1.30); GLOMERULAR FILTRATION RATE 25.5 mL/min (>60); POTASSIUM 4.3 MMOL/L (3.5-5.1); SODIUM 139 MMOL/L (136-145); TOTAL PROTEIN 6.4 G/DL (6.4-8.2)
[2017-07-08] MEDS: LORazepam Inj 2mg/ml 1ml IV PRN (05:45)
[2017-07-08] MEDS ORDERED: Digoxin 0.5mg/2ml Inj IVP ONE ×3 (08:00→22:30)
[2017-07-08] MEDS: Solu-MEDROL 40mg Inj IVP SCH ×2 (08:54→21:44)
[2017-07-08] MEDS: Venlafaxine HCl 37.5mg Tab NG SCH ×3 (08:54→18:00)
[2017-07-08] MEDS: Losartan 50mg tab ORAL SCH ×2 (08:55→10:33)
[2017-07-08] MEDS: Metoprolol Tartrate 50mg tab ORAL SCH ×3 (08:56→21:46)
[2017-07-08] MEDS: Pantoprazole Inj IVP SCH (08:57)
[2017-07-08] MEDS: Aspirin Baby 81mg NG SCH (10:32)
--- NOTE | 2017-07-08 11:10 | Diagnostic Imaging Report ---
Indication: Abnormal renal function tests Technique: Grayscale and duplex images of the kidneys, retroperitoneum, and bladder were obtained. Comparison:None Findings: Right kidney measures 10.7 cm in length. Left kidney measures 10.6 cm in length. Both kidneys demonstrate normal echogenicity. No hydronephrosis. There are bilateral renal cysts.. Normal inferior vena cava. Bladder is empty, contains a Beasley catheter. Impression: Negative for hydronephrosis Incidental finding bilateral renal cysts Beasley catheter within empty bladder.
[2017-07-08] MEDS ORDERED: Levalbuterol Inh UD 1.25mg/0.5ml HHN PRN (13:00)
[2017-07-08] MEDS ORDERED: Ipratropium 0.02% Inh Soln 2.5ml UD HHN PRN (13:00)
[2017-07-08] MEDS: Vancomycin 1gm/D5W 275ml IVPB SCH ×2 (13:12)
--- NOTE | 2017-07-08 13:45 | Pulmonology Progress Note ---
Assessment/Plan Assessment/Plan 1. Respiratory failure. 2. Congestive heart failure with pulm edema, severe MR 3. Chronic obstructive pulmonary disease 4. Chronic kidney disease, BETHANY 5. Hypertension. 6. Sepsis, BC+ GPC clusters Plan: vent, HHN lasix abx wean when able not ready to wean Subjective ROS Limited/Unobtainable: Yes Allergies: Coded Allergies: No Known Allergies (Unverified , 05/03/17) Objective Last 24 Hour Vital Signs Date Time Temp Pulse Resp B/P (MAP) Pulse Ox O2 Delivery O2 Flow Rate FiO2 07/08/17 13:01 Mechanical Ventilator 45 07/08/17 13:00 118 21 99 Mechanical Ventilator 45 07/08/17 12:58 121 20 45 07/08/17 12:00 50 07/08/17 12:00 98.6 99 19 126/65 99 Mechanical Ventilator 50 07/08/17 12:00 146 21 143/122 98 Mechanical Ventilator 50 07/08/17 12:00 138 07/08/17 11:17 135 21 50 07/08/17 11:16 Mechanical Ventilator 50 07/08/17 11:16 136 21 100 Mechanical Ventilator 50 07/08/17 11:00 136 21 124/89 98 Mechanical Ventilator 50 07/08/17 10:34 111 07/08/17 10:33 145/110 07/08/17 10:33 111 145/110 07/08/17 10:00 115 21 145/119 98 Mechanical Ventilator 50 07/08/17 09:40 120 26 50 07/08/17 09:38 96 07/08/17 09:00 120 21 125/92 98 Mechanical Ventilator 50 07/08/17 08:53 119 07/08/17 08:00 117 20 104/76 98 Mechanical Ventilator 50 07/08/17 08:00 50 07/08/17 08:00 116 07/08/17 07:21 135 23 99 Mechanical Ventilator 50 07/08/17 07:14 121 20 50 07/08/17 07:12 50 07/08/17 07:10 115 20 98 Mechanical Ventilator 50 07/08/17 07:00 98.6 116 20 103/81 98 Mechanical Ventilator 50 07/08/17 06:00 98.6 121 20 119/79 98 Mechanical Ventilator 50 07/08/17 05:19 127 20 50 07/08/17 05:00 116 20 119/79 97 Mechanical Ventilator 50 07/08/17 04:00 50 07/08/17 04:00 119 20 112/78 97 Mechanical Ventilator 50 07/08/17 04:00 119 07/08/17 03:28 Mechanical Ventilator 07/08/17 03:27 128 20 96 Mechanical Ventilator 50 07/08/17 03:26 128 20 50 07/08/17 03:00 115 20 113/88 97 Mechanical Ventilator 50 07/08/17 02:00 124 20 114/78 97 Mechanical Ventilator 50 07/08/17 01:17 127 20 50 07/08/17 01:00 127 21 109/92 97 Mechanical Ventilator 50 07/08/17 00:00 98.6 125 21 110/78 97 Mechanical Ventilator 50 07/08/17 00:00 120 07/07/17 23:00 127 21 118/85 94 Mechanical Ventilator 50 07/07/17 22:54 Mechanical Ventilator 07/07/17 22:54 130 20 98 Mechanical Ventilator 50 07/07/17 22:53 130 21 50 07/07/17 22:15 132 114/81 07/07/17 22:00 123 20 114/70 97 Mechanical Ventilator 50 07/07/17 21:00 135 21 99/78 97 Mechanical Ventilator 50 07/07/17 20:56 132 21 50 07/07/17 20:45 130 99/78 07/07/17 20:00 98.6 130 23 127/70 96 Mechanical Ventilator 50 07/07/17 20:00 50 07/07/17 20:00 135 07/07/17 19:22 Mechanical Ventilator 07/07/17 19:22 135 25 95 Mechanical Ventilator 50 07/07/17 19:20 135 25 50 07/07/17 19:00 135 23 113/63 95 Mechanical Ventilator 50 07/07/17 18:00 92 20 127/70 95 Mechanical Ventilator 50 07/07/17 17:09 87 20 50 07/07/17 17:00 86 20 114/70 95 Mechanical Ventilator 50 07/07/17 16:00 98.8 86 20 98/59 95 Mechanical Ventilator 50 07/07/17 16:00 50 07/07/17 16:00 90 07/07/17 15:14 96 20 95 Mechanical Ventilator 60 07/07/17 15:05 50 07/07/17 15:02 88 20 97 Mechanical Ventilator 6.0 50 07/07/17 15:00 89 20 112/62 97 Mechanical Ventilator 50 07/07/17 14:55 88 20 50 07/07/17 14:00 96 20 123/68 96 Mechanical Ventilator 50 Intake and Output 07/08/17 07/09/17 19:00 07:00 Intake Total 277.0 ml Output Total 385 ml Balance -108.0 ml IV Total 27.0 ml Tube Feeding 250 ml Output Urine Total 385 ml General Appearance: no acute distress HEENT: normocephalic Respiratory/Chest: lungs clear, decreased breath sounds Cardiovascular: normal rate Abdomen: soft, non tender Microbiology Date/Time Source Procedure Growth Status 07/06/17 05:30 Blood Blood Culture - Preliminary NO GROWTH AFTER 48 HOURS Resulted 07/06/17 05:20 Blood Blood Culture - Preliminary Staphylococcus Sp Coag Neg Resulted 07/06/17 06:50 Nasal Nares MRSA Culture - Final NO METHICILLIN RESISTANT STAPH AUREUS... Complete 07/06/17 06:50 Rectum VRE Culture - Final NO VANCOMYCIN RESISTANT ENTEROCOCCUS ... Complete Laboratory Tests 07/08/17 04:20: White Blood Count 13.6H, Red Blood Count 2.81L, Hemoglobin 9.6L, Hematocrit 29.7L, Mean Corpuscular Volume 106H, Mean Corpuscular Hemoglobin 34.3H, Mean Corpuscular Hemoglobin Concent 32.4, Red Cell Distribution Width 13.1, Platelet Count 157, Mean Platelet Volume 8.9, Neutrophils (%) (Auto) , Lymphocytes (%) ( Auto) , Monocytes (%) (Auto) , Eosinophils (%) (Auto) , Basophils (%) (Auto) , Sodium Level 139, Potassium Level 4.3, Chloride Level 94L, Carbon Dioxide Level 39H, Anion Gap 5, Blood Urea Nitrogen 48H, Creatinine 2.3H, Estimat Glomerular Filtration Rate 25.5, Glucose Level 216H, Calcium Level 9.3, Magnesium Level 2.1 , Total Bilirubin 0.6, Aspartate Amino Transf (AST/SGOT) 24, Alanine Aminotransferase (ALT/SGPT) 30, Alkaline Phosphatase 67, Total Protein 6.4, Albumin 2.8L, Globulin 3.6, Albumin/Globulin Ratio 0.8L 07/08/17 11:00: Vancomycin Level Trough 18.5H Current Medications Medications (Trade) Dose Ordered Sig/Luis Miguel Route PRN Reason Start Time Stop Time Status Last Admin Dose Admin Acetaminophen (Tylenol) 650 mg Q4H PRN NG Mild Pain/Temp > 100.5 07/06/17 08:45 08/05/17 08:44 07/06/17 13:22 Albuterol/ Ipratropium (Albuterol/ Ipratropium) 3 ml Q4HRT IN-LINE 07/06/17 11:00 07/11/17 10:59 07/08/17 11:15 Aspirin (ASA) 81 mg DAILY NG 07/06/17 09:30 08/05/17 09:29 07/08/17 10:32 Atorvastatin Calcium (Lipitor) 80 mg BEDTIME ORAL 07/06/17 21:00 08/05/17 20:59 07/07/17 20:44 Furosemide (Lasix) 40 mg EVERY 12 HOURS IV 07/06/17 09:30 08/05/17 09:29 07/08/17 08:54 Ipratropium [place] (Atrovent) 500 mcg Q4H PRN HHN Shortness of Breath 2 Line Age 1207/08/17 13:00 07/13/17 12:59 Levalbuterol HCl (Xopenex) 1.25 mg Q4H PRN HHN Shortness of Breath 1st Line A 07/08/17 13:00 07/13/17 12:59 Lorazepam (Ativan 2mg/ml 1ml) 0.5 mg EVERY 3 HOURS PRN IV For Anxiety 07/06/17 08:45 07/13/17 08:44 07/08/17 05:45 Losartan Potassium (Cozaar) 100 mg DAILY ORAL 07/07/17 13:00 08/06/17 12:59 07/08/17 10:33 Methylprednisolone Sodium Succinate (Solu-MEDROL) 40 mg EVERY 12 HOURS IVP 07/07/17 09:00 08/06/17 08:59 07/08/17 08:54 Metoprolol Tartrate (Lopressor) 50 mg Q12HR ORAL 07/06/17 09:30 08/05/17 09:29 07/08/17 10:33 Pantoprazole (Protonix) 40 mg DAILY IVP 07/06/17 11:00 08/05/17 10:59 07/08/17 08:57 Piperacillin Sod/ Tazobactam Sod 3.375 gm/Dextrose 55 ml @ 13.75 mls/ hr Q8H IVPB 07/06/17 10:00 07/13/17 09:59 07/08/17 08:55 Vancomycin HCl (Vanco rx to dose) 1 ea DAILY PRN MISC Per rx protocol 07/06/17 08:45 08/05/17 08:44 Vancomycin HCl 1 gm/Dextrose 275 ml @ 183.708 mls/hr Q24H IVPB 07/08/17 13:00 07/13/17 12:59 07/08/17 13:12 Venlafaxine HCl (Effexor) 75 mg THREE TIMES A DAY NG 07/06/17 13:00 08/05/17 12:59 07/08/17 08:54 KRIS ZAPATA Jul 08, 2017 13:44
--- NOTE | 2017-07-08 14:35 | Diagnostic Imaging Report ---
APPROVED REPORT CPT Code: 88606 Present Symptoms Shortness of breath BILATERAL: Imaging reveals a patent deep venous system bilaterally. There is no evidence of thrombus within the femoral, popliteal or tibial segments. The greater saphenous veins are also within normal limits. Doppler indicates normal spontaneous flow within these segments.
--- NOTE | 2017-07-08 16:32 | Nephrology Progress Note ---
Assessment/Plan Assessment 1) Grace, I am suspecting cardio-renal syndrome 2) Fluid overload/CHF 3) S/P respiratory failure Plan: Will give lasix 80 mg IV Q8 x2 Awaiting 24 hour urine protein Subjective Subjective She is alert on the vent,some U/O Objective Objective Last 24 Hour Vital Signs Date Time Temp Pulse Resp B/P (MAP) Pulse Ox O2 Delivery O2 Flow Rate FiO2 07/08/17 15:00 98 20 45 07/08/17 14:00 97 20 134/80 94 Mechanical Ventilator 50 07/08/17 13:01 Mechanical Ventilator 45 07/08/17 13:00 97 20 129/90 97 Mechanical Ventilator 50 07/08/17 13:00 118 21 99 Mechanical Ventilator 45 07/08/17 12:58 121 20 45 07/08/17 12:00 50 07/08/17 12:00 98.6 99 19 126/65 99 Mechanical Ventilator 50 07/08/17 12:00 146 21 143/122 98 Mechanical Ventilator 50 07/08/17 12:00 138 07/08/17 11:17 135 21 50 07/08/17 11:16 Mechanical Ventilator 50 07/08/17 11:16 136 21 100 Mechanical Ventilator 50 07/08/17 11:00 136 21 124/89 98 Mechanical Ventilator 50 07/08/17 10:34 111 07/08/17 10:33 145/110 07/08/17 10:33 111 145/110 07/08/17 10:00 115 21 145/119 98 Mechanical Ventilator 50 07/08/17 09:40 120 26 50 07/08/17 09:38 96 07/08/17 09:00 120 21 125/92 98 Mechanical Ventilator 50 07/08/17 08:53 119 07/08/17 08:00 117 20 104/76 98 Mechanical Ventilator 50 07/08/17 08:00 50 07/08/17 08:00 116 07/08/17 07:21 135 23 99 Mechanical Ventilator 50 07/08/17 07:14 121 20 50 07/08/17 07:12 50 07/08/17 07:10 115 20 98 Mechanical Ventilator 50 07/08/17 07:00 98.6 116 20 103/81 98 Mechanical Ventilator 50 07/08/17 06:00 98.6 121 20 119/79 98 Mechanical Ventilator 50 07/08/17 05:19 127 20 50 07/08/17 05:00 116 20 119/79 97 Mechanical Ventilator 50 07/08/17 04:00 50 07/08/17 04:00 119 20 112/78 97 Mechanical Ventilator 50 07/08/17 04:00 119 07/08/17 03:28 Mechanical Ventilator 07/08/17 03:27 128 20 96 Mechanical Ventilator 50 07/08/17 03:26 128 20 50 07/08/17 03:00 115 20 113/88 97 Mechanical Ventilator 50 07/08/17 02:00 124 20 114/78 97 Mechanical Ventilator 50 07/08/17 01:17 127 20 50 07/08/17 01:00 127 21 109/92 97 Mechanical Ventilator 50 07/08/17 00:00 98.6 125 21 110/78 97 Mechanical Ventilator 50 07/08/17 00:00 120 07/07/17 23:00 127 21 118/85 94 Mechanical Ventilator 50 07/07/17 22:54 Mechanical Ventilator 07/07/17 22:54 130 20 98 Mechanical Ventilator 50 07/07/17 22:53 130 21 50 07/07/17 22:15 132 114/81 07/07/17 22:00 123 20 114/70 97 Mechanical Ventilator 50 07/07/17 21:00 135 21 99/78 97 Mechanical Ventilator 50 07/07/17 20:56 132 21 50 07/07/17 20:45 130 99/78 07/07/17 20:00 98.6 130 23 127/70 96 Mechanical Ventilator 50 07/07/17 20:00 50 07/07/17 20:00 135 07/07/17 19:22 Mechanical Ventilator 07/07/17 19:22 135 25 95 Mechanical Ventilator 50 07/07/17 19:20 135 25 50 07/07/17 19:00 135 23 113/63 95 Mechanical Ventilator 50 07/07/17 18:00 92 20 127/70 95 Mechanical Ventilator 50 07/07/17 17:09 87 20 50 07/07/17 17:00 86 20 114/70 95 Mechanical Ventilator 50 Intake and Output 07/08/17 07/09/17 19:00 07:00 Intake Total 601.708 ml Output Total 535 ml Balance 66.708 ml IV Total 251.708 ml Tube Feeding 350 ml Output Urine Total 535 ml # Bowel Movements 1 Laboratory Tests 07/08/17 04:20: White Blood Count 13.6H, Red Blood Count 2.81L, Hemoglobin 9.6L, Hematocrit 29.7L, Mean Corpuscular Volume 106H, Mean Corpuscular Hemoglobin 34.3H, Mean Corpuscular Hemoglobin Concent 32.4, Red Cell Distribution Width 13.1, Platelet Count 157, Mean Platelet Volume 8.9, Neutrophils (%) (Auto) , Lymphocytes (%) ( Auto) , Monocytes (%) (Auto) , Eosinophils (%) (Auto) , Basophils (%) (Auto) , Sodium Level 139, Potassium Level 4.3, Chloride Level 94L, Carbon Dioxide Level 39H, Anion Gap 5, Blood Urea Nitrogen 48H, Creatinine 2.3H, Estimat Glomerular Filtration Rate 25.5, Glucose Level 216H, Calcium Level 9.3, Magnesium Level 2.1 , Total Bilirubin 0.6, Aspartate Amino Transf (AST/SGOT) 24, Alanine Aminotransferase (ALT/SGPT) 30, Alkaline Phosphatase 67, Total Protein 6.4, Albumin 2.8L, Globulin 3.6, Albumin/Globulin Ratio 0.8L 07/08/17 11:00: Vancomycin Level Trough 18.5H Height (Feet): 6 Height (Inches): 0.00 Weight (Pounds): 220 General Appearance: WD/WN EENT: PERRL/EOMI Neck: non-tender Cardiovascular: normal rate, regular rhythm, JVD - high Respiratory/Chest: decreased breath sounds, crackles/rales Abdomen: normal bowel sounds, soft, no organomegaly Extremities: normal range of motion Neurologic: 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
[2017-07-08 20:52] LABS: CREATININE 2.3 MG/DL (0.55-1.30); GLOMERULAR FILTRATION RATE 25.5 mL/min (>60)
[2017-07-08 21:03] LABS: TOTAL PROTEIN 24HR URINE 36.9 G/24HR (< 0.1)
[2017-07-08 21:16] LABS: CREATININE CLEARANCE,URINE 34 mL/min (71-151)
[2017-07-08] MEDS: Atorvastatin 80mg tab ORAL SCH (21:46)
[2017-07-09] VITALS (24 sets, daily range): BP systolic 119–181; BP diastolic 63–111
--- NOTE | 2017-07-09 01:15 | Progress Note ---
DATE: 07/08/2017 CARDIOLOGY PROGRESS NOTE SUBJECTIVE: The patient's condition remains critical. Prognosis guarded. She remains in the intensive care unit. The patient has had rapid recurring episodes of atrial fibrillation. The patient remains on full ventilator support and has not been weanable. The patient continues to have pulmonary edema due to systolic dysfunction. The patient has positive blood cultures for Gram-positive cocci in clusters. OBJECTIVE: VITAL SIGNS: Blood pressure 126/66, pulse 99 to 146, respiratory rate 19 to 21, and afebrile. GENERAL: Orally intubated and mechanically ventilated. LUNGS: Coarse breath sounds with rales. CARDIAC: Irregularly irregular rhythm. Normal S1 and S2. CHEST WALL: ICD pocket site with slight erythema, but no drainage. ABDOMEN: Soft. EXTREMITIES: With trace dependent edema. LABORATORY DATA: White count 13.6 and hemoglobin 9.6. Creatinine 2.3. BUN 48, sodium 139, potassium 4.3, and bicarbonate 39. Albumin 2.8. Magnesium 2.1. IMPRESSION: 1. Paroxysmal atrial fibrillation with rapid ventricular response. 2. History of nonsustained ventricular tachycardia. 3. Acute on chronic systolic and diastolic congestive heart failure. 4. Severe mitral regurgitation. 5. Acute respiratory failure with hypoxia. 6. Chronic obstructive pulmonary disease with exacerbation. 7. Acute on chronic kidney injury. 8. Hypertensive heart disease. 9. Gram-positive bacteremia. 10. Increased risk for endovascular infection in this clinical setting with new cardiac defibrillator. PLAN: 1. IV antibiotics. 2. ICU care. 3. Ventilator support with wean as able. 4. Diuresis. 5. Digitalize for rate control. 6. Continue beta-blockade. 7. If recurring bacteremia, may have to consider transesophageal echocardiogram to evaluate for endovascular infection. 8. Transfuse for hemoglobin less than 8 g. 9. Monitor metabolic parameters closely and adjust therapy accordingly. 10. The patient is at high risk due to multiorgan system disease and advanced cardiomyopathy. We will consider full anticoagulation for cardioembolic prophylaxis once risk of bleeding has been resolved. Víctor Kuhn M.D. DR: Nixon JOB#: [id number] CC:
[2017-07-09] MEDS: Zoysn 3.37gm in D5W 55ml IVPB SCH ×3 (02:03→17:04)
[2017-07-09 05:23] LABS: MEAN CORPUSCULAR HEMOGLOBIN 34.3 PG (27.0-31.0); MEAN CORPUSCULAR HGB CONC 32.3 G/DL (32.0-36.0); MEAN CORPUSCULAR VOLUME 106 FL (80-99); MEAN PLATELET VOLUME 8.9 FL (6.5-10.1); PLATELET COUNT 141 K/UL (150-450); RED BLOOD COUNT 3.01 M/UL (4.20-5.40); WHITE BLOOD COUNT 11.8 K/UL (4.8-10.8)
[2017-07-09 06:09] LABS: ALANINE AMINOTRANSFERASE 27 U/L (12-78); ALBUMIN/GLOBULIN RATIO 0.7 (1.0-2.7); ANION GAP 7 mmol/L (5-15); ASPARTATE AMINO TRANSFERASE 23 U/L (15-37); CALCIUM 9.4 MG/DL (8.5-10.1); CARBON DIOXIDE 39 MMOL/L (21-32); CHLORIDE 95 MMOL/L (98-107); CREATININE 2.2 MG/DL (0.55-1.30); GLOMERULAR FILTRATION RATE 26.8 mL/min (>60); POTASSIUM 3.8 MMOL/L (3.5-5.1); SODIUM 141 MMOL/L (136-145); TOTAL PROTEIN 6.8 G/DL (6.4-8.2)
[2017-07-09 08:01] LABS: BAND NEUTROPHILS % (MANUAL) 7 % (0-8); BASOPHILS % (MANUAL) 0 % (0-2); EOSINOPHILS % (MANUAL) 0 % (0-3); LYMPHOCYTES % (MANUAL) 2 % (20-45); MACROCYTES 1+; NEUTROPHILS % (MANUAL) 89 % (45-75); PLATELET ESTIMATE ADEQUATE; PLATELET MORPHOLOGY NORMAL; POLYCHROMASIA 1+; TOTAL CELLS COUNTED 100
[2017-07-09] MEDS: Solu-MEDROL 40mg Inj IVP SCH ×2 (10:48→21:00)
[2017-07-09] MEDS: Pantoprazole Inj IVP SCH (10:48)
[2017-07-09] MEDS: Venlafaxine HCl 37.5mg Tab NG SCH ×3 (10:49→17:03)
[2017-07-09] MEDS: Aspirin Baby 81mg NG SCH (10:50)
[2017-07-09] MEDS: Metoprolol Tartrate 50mg tab NG SCH (10:50)
[2017-07-09] MEDS: Losartan 50mg tab NG SCH (10:50)
--- NOTE | 2017-07-09 11:10 | Diagnostic Imaging Report ---
Indication: Dyspnea Comparison: 07/07/17 A single view chest radiograph was obtained. Findings: Interstitial edema has improved since the last examination. Suspected left pleural effusion and basilar atelectasis. Pacemaker again noted. Tubes and lines are stable. Impression: Improved CHF/interstitial edema
--- NOTE | 2017-07-09 11:12 | Diagnostic Imaging Report ---
Indication: NG tube Comparison: None Single view of the abdomen obtained Findings: NG tube is in good position with the tip and proximal port well below the diaphragm. Further findings over to the chest x-ray report. Impression: NG tube in good position
--- NOTE | 2017-07-09 12:12 | Pulmonology Progress Note ---
Assessment/Plan Assessment/Plan 1. Respiratory failure. 2. Congestive heart failure with pulm edema, severe MR 3. Chronic obstructive pulmonary disease 4. Chronic kidney disease, BETHANY - stable 5. Hypertension. 6. Sepsis, BC+ [employer] Plan: spontaneous TV low; cannot wean vent, HHN lasix, steroids abx wean when able Subjective ROS Limited/Unobtainable: Yes Allergies: Coded Allergies: No Known Allergies (Unverified , 05/03/17) Objective Last 24 Hour Vital Signs Date Time Temp Pulse Resp B/P (MAP) Pulse Ox O2 Delivery O2 Flow Rate FiO2 07/09/17 12:00 45 07/09/17 11:47 80 20 40 07/09/17 11:00 88 20 149/109 95 Mechanical Ventilator 45 07/09/17 10:50 88 149/109 07/09/17 10:50 149/109 07/09/17 10:00 84 20 181/95 97 Mechanical Ventilator 45 07/09/17 09:00 99 31 159/69 93 Mechanical Ventilator 45 07/09/17 08:45 76 20 40 07/09/17 08:44 97 07/09/17 08:00 45 07/09/17 08:00 98.5 78 20 156/69 97 Mechanical Ventilator 45 07/09/17 07:05 79 20 40 07/09/17 07:00 84 20 147/77 97 Mechanical Ventilator 45 07/09/17 06:00 92 20 148/82 97 Mechanical Ventilator 45 07/09/17 05:00 91 23 155/82 96 Mechanical Ventilator 45 07/09/17 04:45 80 20 45 07/09/17 04:00 45 07/09/17 04:00 98.3 89 23 142/80 95 Mechanical Ventilator 45 07/09/17 04:00 82 07/09/17 03:16 70 20 45 07/09/17 03:00 76 20 154/111 94 Mechanical Ventilator 45 07/09/17 02:00 76 20 144/73 94 Mechanical Ventilator 45 07/09/17 01:00 75 20 143/105 95 Mechanical Ventilator 45 07/09/17 00:58 80 20 45 07/09/17 00:00 45 07/09/17 00:00 74 07/09/17 00:00 97.2 79 20 141/86 96 Mechanical Ventilator 45 07/08/17 23:21 81 07/08/17 23:00 78 20 150/75 94 Mechanical Ventilator 45 07/08/17 22:42 81 20 45 07/08/17 22:00 80 20 144/88 93 Mechanical Ventilator 45 07/08/17 21:46 80 151/78 07/08/17 21:35 80 20 45 07/08/17 21:00 80 20 142/81 94 Mechanical Ventilator 45 07/08/17 20:00 81 07/08/17 20:00 45 07/08/17 20:00 97.6 81 20 151/78 94 Mechanical Ventilator 45 07/08/17 19:00 96 18 153/83 95 Mechanical Ventilator 45 07/08/17 18:58 84 20 45 07/08/17 18:00 97.8 87 20 142/82 95 Mechanical Ventilator 50 07/08/17 17:03 96 20 45 07/08/17 17:00 99 19 156/99 94 Mechanical Ventilator 45 07/08/17 16:00 93 20 145/81 96 Mechanical Ventilator 45 07/08/17 16:00 108 07/08/17 16:00 45 07/08/17 15:00 98 20 45 07/08/17 15:00 97 20 134/81 96 Mechanical Ventilator 50 07/08/17 14:00 97 20 134/80 94 Mechanical Ventilator 50 07/08/17 13:01 Mechanical Ventilator 45 07/08/17 13:00 97 20 129/90 97 Mechanical Ventilator 50 07/08/17 13:00 118 21 99 Mechanical Ventilator 45 07/08/17 12:58 121 20 45 General Appearance: no acute distress HEENT: atraumatic Respiratory/Chest: decreased breath sounds Cardiovascular: normal rate, regular rhythm Abdomen: soft, non tender Laboratory Tests 07/08/17 14:00: Creatinine 2.3H, Estimat Glomerular Filtration Rate 25.5 07/09/17 04:15: Creatinine 2.2H, Estimat Glomerular Filtration Rate 26.8, White Blood Count 11.8H, Red Blood Count 3.01L, Hemoglobin 10.3L, Hematocrit 31.9L, Mean Corpuscular Volume 106H, Mean Corpuscular Hemoglobin 34.3H, Mean Corpuscular Hemoglobin Concent 32.3, Red Cell Distribution Width 13.0, Platelet Count 141L, Mean Platelet Volume 8.9, Neutrophils (%) (Auto) , Lymphocytes (%) (Auto) , Monocytes (%) (Auto) , Eosinophils (%) (Auto) , Basophils (%) (Auto) , Differential Total Cells Counted 100, Neutrophils % (Manual) 89H, Lymphocytes % (Manual) 2L, Monocytes % (Manual) 2, Eosinophils % (Manual) 0, Basophils % ( Manual) 0, Band Neutrophils 7, Platelet Estimate Adequate, Platelet Morphology Normal, Polychromasia 1+, Macrocytosis 1+, Sodium Level 141, Potassium Level 3.8 , Chloride Level 95L, Carbon Dioxide Level 39H, Anion Gap 7, Blood Urea Nitrogen 51H, Glucose Level 218H, Calcium Level 9.4, Total Bilirubin 0.5, Aspartate Amino Transf (AST/SGOT) 23, Alanine Aminotransferase (ALT/SGPT) 27, Alkaline Phosphatase 66, Pro-B-Type Natriuretic Peptide 02755B, Total Protein 6.8, Albumin 2.9L, Globulin 3.9, Albumin/Globulin Ratio 0.7L Current Medications Medications (Trade) Dose Ordered Sig/Luis Miguel Route PRN Reason Start Time Stop Time Status Last Admin Dose Admin Acetaminophen (Tylenol) 650 mg Q4H PRN NG Mild Pain/Temp > 100.5 07/06/17 08:45 08/05/17 08:44 07/06/17 13:22 Aspirin (ASA) 81 mg DAILY NG 07/06/17 09:30 08/05/17 09:29 07/09/17 10:50 Atorvastatin Calcium (Lipitor) 80 mg BEDTIME GT 07/09/17 21:00 08/05/17 20:59 Digoxin (Lanoxin) 0.125 mg DAILY NG 07/10/17 09:00 08/09/17 08:59 Furosemide (Lasix) 40 mg Q12HR IV 07/09/17 09:00 08/08/17 08:59 07/09/17 10:48 Ipratropium [place] (Atrovent) 500 mcg Q4H PRN HHN Shortness of Breath 2 Line Age 1207/08/17 13:00 07/13/17 12:59 Levalbuterol HCl (Xopenex) 1.25 mg Q4H PRN HHN Shortness of Breath 1st Line A 07/08/17 13:00 07/13/17 12:59 Lorazepam (Ativan 2mg/ml 1ml) 0.5 mg EVERY 3 HOURS PRN IV For Anxiety 07/06/17 08:45 07/13/17 08:44 07/08/17 05:45 Losartan Potassium (Cozaar) 100 mg DAILY NG 07/10/17 09:00 08/06/17 12:59 07/09/17 10:50 Methylprednisolone Sodium Succinate (Solu-MEDROL) 40 mg EVERY 12 HOURS IVP 07/07/17 09:00 08/06/17 08:59 07/09/17 10:48 Metoprolol Tartrate (Lopressor) 50 mg Q12HR NG 07/09/17 21:00 08/05/17 09:29 07/09/17 10:50 Pantoprazole (Protonix) 40 mg DAILY IVP 07/06/17 11:00 08/05/17 10:59 07/09/17 10:48 Piperacillin Sod/ Tazobactam Sod 3.375 gm/Dextrose 55 ml @ 13.75 mls/ hr Q8H IVPB 07/06/17 10:00 07/13/17 09:59 07/09/17 10:51 Vancomycin HCl (Vanco rx to dose) 1 ea DAILY PRN MISC Per rx protocol 07/06/17 08:45 08/05/17 08:44 Vancomycin HCl 1 gm/Dextrose 275 ml @ 183.708 mls/hr Q24H IVPB 07/08/17 13:00 07/13/17 12:59 07/08/17 13:12 Venlafaxine HCl (Effexor) 75 mg THREE TIMES A DAY NG 07/06/17 13:00 08/05/17 12:59 07/09/17 10:49 KRIS ZAPATA Jul 09, 2017 12:12
[2017-07-09] MEDS: Vancomycin 1gm/D5W 275ml IVPB SCH ×2 (13:29)
--- NOTE | 2017-07-09 15:13 | Nephrology Progress Note ---
Assessment/Plan Assessment 1) Grace, I am suspecting cardio-renal syndrome 2) Fluid overload/CHF 3) S/P respiratory failure 4) She has some metabolic alkalosis due to loop diuretics Plan: Will give lasix 80 mg IV Q8 x2 again Will give diamox 500 mg IV Q8 x3 Hope we can extubate her soon Subjective Subjective She is alert on the vent, she wants to be DNR, she had good diuresis with lasix , CO2 is 39 Objective Objective Last 24 Hour Vital Signs Date Time Temp Pulse Resp B/P (MAP) Pulse Ox O2 Delivery O2 Flow Rate FiO2 07/09/17 15:05 85 27 40 07/09/17 12:58 78 14 40 07/09/17 12:00 79 07/09/17 12:00 45 07/09/17 12:00 98.6 78 20 145/104 97 Mechanical Ventilator 45 07/09/17 11:47 80 20 40 07/09/17 11:00 88 20 149/109 95 Mechanical Ventilator 45 07/09/17 10:50 88 149/109 07/09/17 10:50 149/109 07/09/17 10:00 84 20 181/95 97 Mechanical Ventilator 45 07/09/17 09:00 99 31 159/69 93 Mechanical Ventilator 45 07/09/17 08:45 76 20 40 07/09/17 08:44 97 07/09/17 08:00 81 07/09/17 08:00 45 07/09/17 08:00 98.5 78 20 156/69 97 Mechanical Ventilator 45 07/09/17 07:05 79 20 40 07/09/17 07:00 84 20 147/77 97 Mechanical Ventilator 45 07/09/17 06:00 92 20 148/82 97 Mechanical Ventilator 45 07/09/17 05:00 91 23 155/82 96 Mechanical Ventilator 45 07/09/17 04:45 80 20 45 07/09/17 04:00 45 07/09/17 04:00 98.3 89 23 142/80 95 Mechanical Ventilator 45 07/09/17 04:00 82 07/09/17 03:16 70 20 45 07/09/17 03:00 76 20 154/111 94 Mechanical Ventilator 45 07/09/17 02:00 76 20 144/73 94 Mechanical Ventilator 45 07/09/17 01:00 75 20 143/105 95 Mechanical Ventilator 45 07/09/17 00:58 80 20 45 07/09/17 00:00 45 07/09/17 00:00 74 07/09/17 00:00 97.2 79 20 141/86 96 Mechanical Ventilator 45 07/08/17 23:21 81 07/08/17 23:00 78 20 150/75 94 Mechanical Ventilator 45 07/08/17 22:42 81 20 45 07/08/17 22:00 80 20 144/88 93 Mechanical Ventilator 45 07/08/17 21:46 80 151/78 07/08/17 21:35 80 20 45 07/08/17 21:00 80 20 142/81 94 Mechanical Ventilator 45 07/08/17 20:00 81 07/08/17 20:00 45 07/08/17 20:00 97.6 81 20 151/78 94 Mechanical Ventilator 45 07/08/17 19:00 96 18 153/83 95 Mechanical Ventilator 45 07/08/17 18:58 84 20 45 07/08/17 18:00 97.8 87 20 142/82 95 Mechanical Ventilator 50 07/08/17 17:03 96 20 45 07/08/17 17:00 99 19 156/99 94 Mechanical Ventilator 45 07/08/17 16:00 93 20 145/81 96 Mechanical Ventilator 45 07/08/17 16:00 108 07/08/17 16:00 45 Intake and Output 07/09/17 07/10/17 19:00 07:00 Intake Total 233.104 ml Output Total 1220 ml Balance -986.896 ml IV Total 133.104 ml Tube Feeding 100 ml Output Urine Total 1220 ml Laboratory Tests 07/09/17 04:15: White Blood Count 11.8H, Red Blood Count 3.01L, Hemoglobin 10.3L, Hematocrit 31.9L, Mean Corpuscular Volume 106H, Mean Corpuscular Hemoglobin 34.3H, Mean Corpuscular Hemoglobin Concent 32.3, Red Cell Distribution Width 13.0, Platelet Count 141L, Mean Platelet Volume 8.9, Neutrophils (%) (Auto) , Lymphocytes (%) ( Auto) , Monocytes (%) (Auto) , Eosinophils (%) (Auto) , Basophils (%) (Auto) , Differential Total Cells Counted 100, Neutrophils % (Manual) 89H, Lymphocytes % (Manual) 2L, Monocytes % (Manual) 2, Eosinophils % (Manual) 0, Basophils % ( Manual) 0, Band Neutrophils 7, Platelet Estimate Adequate, Platelet Morphology Normal, Polychromasia 1+, Macrocytosis 1+, Sodium Level 141, Potassium Level 3.8 , Chloride Level 95L, Carbon Dioxide Level 39H, Anion Gap 7, Blood Urea Nitrogen 51H, Creatinine 2.2H, Estimat Glomerular Filtration Rate 26.8, Glucose Level 218H, Calcium Level 9.4, Total Bilirubin 0.5, Aspartate Amino Transf (AST/ SGOT) 23, Alanine Aminotransferase (ALT/SGPT) 27, Alkaline Phosphatase 66, Pro-B -Type Natriuretic Peptide 62676H, Total Protein 6.8, Albumin 2.9L, Globulin 3.9 , Albumin/Globulin Ratio 0.7L Height (Feet): 6 Height (Inches): 0.00 Weight (Pounds): 225 General Appearance: WD/WN, no apparent distress EENT: PERRL/EOMI, other - ET in place Neck: non-tender, normal alignment Cardiovascular: normal peripheral pulses, normal rate, JVD - high Respiratory/Chest: decreased breath sounds, crackles/rales Abdomen: normal bowel sounds, non tender, soft Neurologic: ssis architect II-XII grossly normal, no motor/sensory deficits CANDICE DUGGAN Jul 09, 2017 15:13
[2017-07-09 15:55] LABS: ABG ALLEN TEST POSITIVE; ABG BASE EXCESS 17.2; ABG PCO2 63.2 mmHg (35.0-45.0)
[2017-07-09] MEDS: acetaZOLAMIDE 500mg Inj IVP SCH (17:03)
[2017-07-09] MEDS: Furosemide 40mg tab ORAL SCH (17:04)
[2017-07-09] MEDS ORDERED: Tubing IV Secondary IV ONE (20:11)
[2017-07-09] MEDS: Atorvastatin 80mg tab GT SCH (21:00)
--- NOTE | 2017-07-09 23:00 | Progress Note ---
DATE: 07/09/2017 CARDIOLOGY PROGRESS NOTE SUBJECTIVE: The patient remains in the intensive care unit. Her condition remains critical. Prognosis guarded. She remains on ventilator support. Weaning was not possible due to low spontaneous tidal volumes. The patient continues to have paroxysms of atrial fibrillation, rate control, however, is now achieved. She has frequent ventricular ectopics and occasional paced beats. The patient was digitalized for rapid atrial fibrillation yesterday. PHYSICAL EXAMINATION: VITAL SIGNS: Blood pressure 149/109, earlier 159/69, heart rate 84 to 99, and respiratory rate 20 to 31. The patient is afebrile. SKIN: Notable for some erythema, but no drainage from ICD pocket site. NECK: Supple. Orally intubated. Thin trach secretions. HEART: Few rhonchi. Irregularly irregular rhythm. Normal S1, S2. ABDOMEN: Soft. EXTREMITIES: Trace edema. LABORATORY DATA: White count 11.8, hemoglobin 10.3, sodium 141, potassium 3.8, bicarbonate 39, BUN 51, and creatinine 2.2. ABG, pH 7.45, pCO2 63, and pO2 69. Chest x-ray today reveals improving interstitial edema and CHF. IMPRESSION: 1. Acute on chronic systolic and diastolic congestive heart failure. 2. Paroxysmal atrial fibrillation with rapid ventricular response. 3. Nonsustained ventricular tachycardia. 4. Cardiac defibrillator. 5. Severe mitral regurgitation. 6. Chronic obstructive pulmonary disease exacerbation. 7. Acute respiratory failure. 8. Acute on chronic respiratory acidosis. 9. Hypertensive cardiomyopathy with labile blood pressure. 10. Bacteremia. PLAN: 1. Maintenance dose digoxin for rate control. 2. Antimicrobials weaning effort. 3. Diuresis. 4. Skin care. 5. Antimicrobials. 6. Steroid taper. 7. Remains critical and guarded. Víctor Kuhn M.D. DR: AYLIN JOB#: [id number] CC:
[2017-07-10] VITALS (24 sets, daily range): BP systolic 114–156; BP diastolic 68–93
[2017-07-10] MEDS: Furosemide 40mg tab ORAL SCH (00:27)
[2017-07-10] MEDS: LORazepam Inj 2mg/ml 1ml IV PRN (01:08)
[2017-07-10] MEDS: acetaZOLAMIDE 500mg Inj IVP SCH ×4 (01:17→22:18)
[2017-07-10] MEDS: Zoysn 3.37gm in D5W 55ml IVPB SCH ×3 (02:00→18:00)
[2017-07-10 05:15] LABS: MEAN CORPUSCULAR HEMOGLOBIN 33.5 PG (27.0-31.0); MEAN CORPUSCULAR HGB CONC 31.2 G/DL (32.0-36.0); MEAN CORPUSCULAR VOLUME 108 FL (80-99); MEAN PLATELET VOLUME 9.6 FL (6.5-10.1); PLATELET COUNT 154 K/UL (150-450); RED BLOOD COUNT 3.25 M/UL (4.20-5.40); RED CELL DISTRIBUTION WIDTH 13.7 % (11.6-14.8); WHITE BLOOD COUNT 13.8 K/UL (4.8-10.8)
[2017-07-10 05:41] LABS: ANION GAP 6 mmol/L (5-15); CALCIUM 9.5 MG/DL (8.5-10.1); CARBON DIOXIDE 40 MMOL/L (21-32); CHLORIDE 98 MMOL/L (98-107); GLOMERULAR FILTRATION RATE 29.9 mL/min (>60); POTASSIUM 3.6 MMOL/L (3.5-5.1); SODIUM 144 MMOL/L (136-145)
[2017-07-10 07:40] LABS: BAND NEUTROPHILS % (MANUAL) 0 % (0-8); BASOPHILS % (MANUAL) 0 % (0-2); EOSINOPHILS % (MANUAL) 0 % (0-3); LYMPHOCYTES % (MANUAL) 5 % (20-45); MACROCYTES 1+; NEUTROPHILS % (MANUAL) 95 % (45-75); PLATELET ESTIMATE ADEQUATE; PLATELET MORPHOLOGY NORMAL; TOTAL CELLS COUNTED 100
[2017-07-10 07:41] LABS: HYPOCHROMASIA 1+
[2017-07-10] MEDS: Pantoprazole Inj IVP SCH (09:27)
[2017-07-10] MEDS: Digoxin 0.125mg tab NG SCH (09:28)
[2017-07-10] MEDS: Venlafaxine HCl 37.5mg Tab NG SCH ×3 (09:28→18:00)
[2017-07-10] MEDS: Metoprolol Tartrate 50mg tab NG SCH ×2 (09:30→20:32)
[2017-07-10] MEDS: Aspirin Baby 81mg NG SCH (09:32)
[2017-07-10] MEDS: Solu-MEDROL 40mg Inj IVP SCH ×2 (09:51→20:31)
--- NOTE | 2017-07-10 13:04 | Pulmonology Progress Note ---
Assessment/Plan Assessment/Plan 1. Respiratory failure. 2. Congestive heart failure with pulm edema, severe MR 3. Chronic obstructive pulmonary disease 4. Chronic kidney disease, BETHANY - stable 5. Hypertension. 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 Plan: A fib episodes rate controlled spontaneous TV better; cannot tolerate weaning yet vent, HHN lasix, steroids abx wean when able Subjective Constitutional: Reports: no symptoms Respiratory: Reports: shortness of breath, Denies: sputum Allergies: Coded Allergies: No Known Allergies (Unverified , 05/03/17) Objective Last 24 Hour Vital Signs Date Time Temp Pulse Resp B/P (MAP) Pulse Ox O2 Delivery O2 Flow Rate FiO2 07/10/17 11:00 75 17 130/74 Mechanical Ventilator 35 07/10/17 10:51 77 16 40 07/10/17 10:00 88 18 154/80 95 Mechanical Ventilator 40 93 07/10/17 09:30 92 155/89 07/10/17 09:28 92 07/10/17 09:03 86 29 35 07/10/17 09:00 93 18 155/80 95 Mechanical Ventilator 40 93 07/10/17 08:55 95 07/10/17 08:00 85 30 145/77 96 Mechanical Ventilator 40 85 07/10/17 08:00 84 07/10/17 07:00 99.4 86 17 129/74 94 Mechanical Ventilator 35 86 07/10/17 06:36 85 17 40 07/10/17 06:00 142/75 Mechanical Ventilator 40 07/10/17 05:54 94 07/10/17 05:00 82 16 40 07/10/17 05:00 134/73 Mechanical Ventilator 40 07/10/17 04:00 98.5 135/71 Mechanical Ventilator 40 07/10/17 04:00 45 07/10/17 03:00 79 14 40 07/10/17 03:00 127/68 Mechanical Ventilator 40 07/10/17 02:00 144/76 Mechanical Ventilator 40 07/10/17 01:01 18 99 07/10/17 01:00 83 17 40 07/10/17 01:00 147/89 Mechanical Ventilator 40 07/10/17 00:01 18 98 07/10/17 00:00 98.6 148/76 Mechanical Ventilator 40 07/09/17 23:08 84 18 40 07/09/17 23:07 18 100 07/09/17 23:00 146/68 Mechanical Ventilator 40 07/09/17 22:01 18 99 07/09/17 22:00 104 18 145/74 98 Mechanical Ventilator 40 07/09/17 21:00 81 19 40 07/09/17 21:00 105 18 143/63 100 Mechanical Ventilator 40 07/09/17 20:00 98.4 80 18 145/74 95 Mechanical Ventilator 40 07/09/17 20:00 80 07/09/17 20:00 45 07/09/17 19:00 77 17 40 07/09/17 19:00 78 19 145/72 94 Mechanical Ventilator 40 07/09/17 18:00 83 19 147/75 94 Mechanical Ventilator 40 07/09/17 17:19 84 21 40 07/09/17 17:00 84 19 148/76 95 Mechanical Ventilator 40 07/09/17 16:00 98.0 80 19 144/88 94 Mechanical Ventilator 40 07/09/17 16:00 76 07/09/17 16:00 45 07/09/17 15:05 85 27 40 07/09/17 15:00 86 19 141/86 100 Mechanical Ventilator 45 07/09/17 14:00 81 19 119/77 94 Mechanical Ventilator 45 Intake and Output 07/10/17 07/11/17 19:00 07:00 Intake Total 200 ml Output Total 540 ml Balance -340 ml Tube Feeding 200 ml Output Urine Total 540 ml # Bowel Movements 1 Objective very alert General Appearance: no acute distress HEENT: atraumatic Respiratory/Chest: lungs clear, decreased breath sounds Cardiovascular: normal rate, regular rhythm Abdomen: soft, non tender, no organomegaly Extremities: no edema Laboratory Tests 07/09/17 15:49: Arterial Blood pH 7.459H, Arterial Blood Partial Pressure CO2 63.2*H, Arterial Blood Partial Pressure O2 69.5L, Arterial Blood HCO3 43.8H, Arterial Blood Oxygen Saturation 91.8L, Arterial Blood Base Excess 17.2, Alfredo Test Positive 07/10/17 04:35: White Blood Count 13.8H, Red Blood Count 3.25L, Hemoglobin 10.9L, Hematocrit 35.0L, Mean Corpuscular Volume 108H, Mean Corpuscular Hemoglobin 33.5H, Mean Corpuscular Hemoglobin Concent 31.2L, Red Cell Distribution Width 13.7, Platelet Count 154, Mean Platelet Volume 9.6, Neutrophils (%) (Auto) , Lymphocytes (%) (Auto) , Monocytes (%) (Auto) , Eosinophils (%) (Auto) , Basophils (%) (Auto) , Differential Total Cells Counted 100, Neutrophils % ( Manual) 95H, Lymphocytes % (Manual) 5L, Monocytes % (Manual) 0L, Eosinophils % ( Manual) 0, Basophils % (Manual) 0, Band Neutrophils 0, Platelet Estimate Adequate, Platelet Morphology Normal, Hypochromasia 1+, Macrocytosis 1+, Sodium Level 144, Potassium Level 3.6, Chloride Level 98, Carbon Dioxide Level 40H, Anion Gap 6, Blood Urea Nitrogen 56H, Creatinine 2.0H, Estimat Glomerular Filtration Rate 29.9, Glucose Level 204H, Calcium Level 9.5, Pro-B-Type Natriuretic Peptide 71365Y Current Medications Medications (Trade) Dose Ordered Sig/Luis Miguel Route PRN Reason Start Time Stop Time Status Last Admin Dose Admin Acetaminophen (Tylenol) 650 mg Q4H PRN NG Mild Pain/Temp > 100.5 07/06/17 08:45 08/05/17 08:44 07/06/17 13:22 Aspirin (ASA) 81 mg DAILY NG 07/06/17 09:30 08/05/17 09:29 07/10/17 09:32 Atorvastatin Calcium (Lipitor) 80 mg BEDTIME GT 07/09/17 21:00 08/05/17 20:59 07/09/17 21:00 Digoxin (Lanoxin) 0.125 mg DAILY NG 07/10/17 09:00 08/09/17 08:59 07/10/17 09:28 Furosemide (Lasix) 40 mg Q12HR IV 07/09/17 09:00 08/08/17 08:59 07/10/17 09:27 Ipratropium [place] (Atrovent) 500 mcg Q4H PRN HHN Shortness of Breath 2 Line Age 1207/08/17 13:00 07/13/17 12:59 Levalbuterol HCl (Xopenex) 1.25 mg Q4H PRN HHN Shortness of Breath 1st Line A 07/08/17 13:00 07/13/17 12:59 Lorazepam (Ativan 2mg/ml 1ml) 0.5 mg EVERY 3 HOURS PRN IV For Anxiety 07/06/17 08:45 07/13/17 08:44 07/10/17 01:08 Losartan Potassium (Cozaar) 100 mg DAILY NG 07/10/17 09:00 08/06/17 12:59 07/09/17 10:50 Methylprednisolone Sodium Succinate (Solu-MEDROL) 40 mg EVERY 12 HOURS IVP 07/07/17 09:00 08/06/17 08:59 07/10/17 09:51 Metoprolol Tartrate (Lopressor) 50 mg Q12HR NG 07/09/17 21:00 08/05/17 09:29 07/10/17 09:30 Pantoprazole (Protonix) 40 mg DAILY IVP 07/06/17 11:00 08/05/17 10:59 07/10/17 09:27 Piperacillin Sod/ Tazobactam Sod 3.375 gm/Dextrose 55 ml @ 13.75 mls/ hr Q8H IVPB 07/06/17 10:00 07/13/17 09:59 07/10/17 09:51 Vancomycin HCl (Vanco rx to dose) 1 ea DAILY PRN MISC Per rx protocol 07/06/17 08:45 08/05/17 08:44 Vancomycin HCl 1 gm/Dextrose 275 ml @ 183.708 mls/hr Q24H IVPB 07/08/17 13:00 07/13/17 12:59 07/09/17 13:29 Venlafaxine HCl (Effexor) 75 mg THREE TIMES A DAY NG 07/06/17 13:00 08/05/17 12:59 07/10/17 09:28 KRIS ZAPATA Jul 10, 2017 13:04
--- NOTE | 2017-07-10 14:20 | Nephrology Progress Note ---
Assessment/Plan Assessment 1) Grace, I am suspecting cardio-renal syndrome, renal FX is improving with diuresis 2) Fluid overload/CHF 3) S/P respiratory failure 4) She has some metabolic alkalosis due to loop diuretics Plan: Will give lasix 80 mg IV Q8 x2 again Will give diamox 500 mg IV Q8 x3 again Hope we can extubate her soon Subjective Subjective She had good diuresis with lasix and Diamox, still on the vent, not extubatable , creat is down to 2.0 Objective Objective Last 24 Hour Vital Signs Date Time Temp Pulse Resp B/P (MAP) Pulse Ox O2 Delivery O2 Flow Rate FiO2 07/10/17 13:00 75 17 156/76 96 Mechanical Ventilator 35 07/10/17 13:00 73 16 40 07/10/17 12:00 98.6 74 17 130/74 97 Mechanical Ventilator 35 07/10/17 11:00 75 17 130/74 Mechanical Ventilator 35 07/10/17 10:51 77 16 40 07/10/17 10:00 88 18 154/80 95 Mechanical Ventilator 40 93 07/10/17 09:30 92 155/89 07/10/17 09:28 92 07/10/17 09:03 86 29 35 07/10/17 09:00 93 18 155/80 95 Mechanical Ventilator 40 93 07/10/17 08:55 95 07/10/17 08:00 85 30 145/77 96 Mechanical Ventilator 40 85 07/10/17 08:00 84 07/10/17 07:00 99.4 86 17 129/74 94 Mechanical Ventilator 35 86 07/10/17 06:36 85 17 40 07/10/17 06:00 142/75 Mechanical Ventilator 40 07/10/17 05:54 94 07/10/17 05:00 82 16 40 07/10/17 05:00 134/73 Mechanical Ventilator 40 07/10/17 04:00 98.5 135/71 Mechanical Ventilator 40 07/10/17 04:00 45 07/10/17 03:00 79 14 40 07/10/17 03:00 127/68 Mechanical Ventilator 40 07/10/17 02:00 144/76 Mechanical Ventilator 40 07/10/17 01:01 18 99 07/10/17 01:00 83 17 40 07/10/17 01:00 147/89 Mechanical Ventilator 40 07/10/17 00:01 18 98 07/10/17 00:00 98.6 148/76 Mechanical Ventilator 40 07/09/17 23:08 84 18 40 07/09/17 23:07 18 100 07/09/17 23:00 146/68 Mechanical Ventilator 40 07/09/17 22:01 18 99 07/09/17 22:00 104 18 145/74 98 Mechanical Ventilator 40 07/09/17 21:00 81 19 40 07/09/17 21:00 105 18 143/63 100 Mechanical Ventilator 40 07/09/17 20:00 98.4 80 18 145/74 95 Mechanical Ventilator 40 07/09/17 20:00 80 07/09/17 20:00 45 07/09/17 19:00 77 17 40 07/09/17 19:00 78 19 145/72 94 Mechanical Ventilator 40 07/09/17 18:00 83 19 147/75 94 Mechanical Ventilator 40 07/09/17 17:19 84 21 40 07/09/17 17:00 84 19 148/76 95 Mechanical Ventilator 40 07/09/17 16:00 98.0 80 19 144/88 94 Mechanical Ventilator 40 07/09/17 16:00 76 07/09/17 16:00 45 07/09/17 15:05 85 27 40 07/09/17 15:00 86 19 141/86 100 Mechanical Ventilator 45 Intake and Output 07/10/17 07/11/17 19:00 07:00 Intake Total 200 ml Output Total 540 ml Balance -340 ml Tube Feeding 200 ml Output Urine Total 540 ml # Bowel Movements 1 Laboratory Tests 07/09/17 15:49: Arterial Blood pH 7.459H, Arterial Blood Partial Pressure CO2 63.2*H, Arterial Blood Partial Pressure O2 69.5L, Arterial Blood HCO3 43.8H, Arterial Blood Oxygen Saturation 91.8L, Arterial Blood Base Excess 17.2, Alfredo Test Positive 07/10/17 04:35: White Blood Count 13.8H, Red Blood Count 3.25L, Hemoglobin 10.9L, Hematocrit 35.0L, Mean Corpuscular Volume 108H, Mean Corpuscular Hemoglobin 33.5H, Mean Corpuscular Hemoglobin Concent 31.2L, Red Cell Distribution Width 13.7, Platelet Count 154, Mean Platelet Volume 9.6, Neutrophils (%) (Auto) , Lymphocytes (%) (Auto) , Monocytes (%) (Auto) , Eosinophils (%) (Auto) , Basophils (%) (Auto) , Differential Total Cells Counted 100, Neutrophils % ( Manual) 95H, Lymphocytes % (Manual) 5L, Monocytes % (Manual) 0L, Eosinophils % ( Manual) 0, Basophils % (Manual) 0, Band Neutrophils 0, Platelet Estimate Adequate, Platelet Morphology Normal, Hypochromasia 1+, Macrocytosis 1+, Sodium Level 144, Potassium Level 3.6, Chloride Level 98, Carbon Dioxide Level 40H, Anion Gap 6, Blood Urea Nitrogen 56H, Creatinine 2.0H, Estimat Glomerular Filtration Rate 29.9, Glucose Level 204H, Calcium Level 9.5, Pro-B-Type Natriuretic Peptide 94363F Height (Feet): 6 Height (Inches): 0.00 Weight (Pounds): 225 General Appearance: WD/WN, other - On the vent EENT: PERRL/EOMI Neck: non-tender, normal alignment Cardiovascular: JVD - High Respiratory/Chest: chest wall non-tender, decreased breath sounds Abdomen: normal bowel sounds Extremities: normal range of motion, non-tender, moderate edema 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
[2017-07-10] MEDS: KCl 10% 20 mEq/15ml liquid NG SCH ×2 (14:55→22:55)
[2017-07-10] MEDS: Vancomycin 1gm/D5W 275ml IVPB SCH ×2 (14:56)
[2017-07-10] MEDS: Ipratropium 0.02% Inh Soln 2.5ml UD HHN SCH ×3 (15:14→23:14)
[2017-07-10] MEDS ORDERED: Heparin 5000 units/ml inj IV ONE (19:15)
[2017-07-10] MEDS ORDERED: Heparin 25,000u/D5W 500ml 500 ML IV SCH (19:15)
[2017-07-10] MEDS: Atorvastatin 80mg tab GT SCH (20:32)
--- NOTE | 2017-07-10 20:45 | Progress Note ---
DATE: 07/10/2017 CARDIOLOGY PROGRESS NOTE SUBJECTIVE: The patient remains in the intensive care unit. Condition remains critical. Prognosis remains guarded. The patient remains on ventilator support, and spontaneous tidal volumes remain low and weaning is not possible at this time. Monitor revealed paroxysms of atrial fibrillation, rate controlled with demand pacing. OBJECTIVE: VITAL SIGNS: Blood pressure 130/74, pulse 75, respirations 17, ICD site with no drainage, minimal erythema. NECK: Supple. LUNGS: Clear. CARDIAC: Orally intubated. Irregularly irregular rhythm. Normal S1, S2. ABDOMEN: Soft. No edema. LABORATORY DATA: White count 13.8, hemoglobin 10.9. Potassium 3.6, BUN 56, and creatinine 2.0. Pro-natriuretic peptide 15,000. Chest x-ray yesterday revealed improving congestive heart failure. IMPRESSION: 1. Acute on chronic systolic and diastolic congestive heart failure. 2. Cardiac defibrillator. 3. Paroxysmal atrial fibrillation with controlled ventricular response now. 4. Respiratory failure. 5. Hyperlipidemia. 6. Acute on chronic respiratory acidosis. 7. Paroxysmal ventricular tachycardia. PLAN: 1. Wean as able. 2. Continue diuresis. 3. Replace electrolytes. 4. Titrate anti-failure and antihypertensives. 5. Add anticoagulation therapy for cardioembolic prophylaxis. Víctor Kuhn M.D. DR: GM JOB#: [id number] CC:
[2017-07-11] VITALS (25 sets, daily range): BP systolic 90–141; BP diastolic 39–92
[2017-07-11] MEDS: Zoysn 3.37gm in D5W 55ml IVPB SCH ×3 (01:32→17:24)
[2017-07-11] MEDS: Ipratropium 0.02% Inh Soln 2.5ml UD HHN SCH ×6 (03:26→23:24)
[2017-07-11 03:40] LABS: MEAN CORPUSCULAR HEMOGLOBIN 32.7 PG (27.0-31.0); MEAN CORPUSCULAR HGB CONC 30.5 G/DL (32.0-36.0); MEAN CORPUSCULAR VOLUME 107 FL (80-99); MEAN PLATELET VOLUME 8.9 FL (6.5-10.1); PLATELET COUNT 152 K/UL (150-450); RED BLOOD COUNT 3.29 M/UL (4.20-5.40); WHITE BLOOD COUNT 14.4 K/UL (4.8-10.8)
[2017-07-11 04:22] LABS: ALANINE AMINOTRANSFERASE 25 U/L (12-78); ALBUMIN/GLOBULIN RATIO 0.7 (1.0-2.7); ANION GAP 5 mmol/L (5-15); ASPARTATE AMINO TRANSFERASE 17 U/L (15-37); CALCIUM 9.2 MG/DL (8.5-10.1); CARBON DIOXIDE 37 MMOL/L (21-32); CHLORIDE 100 MMOL/L (98-107); GLOMERULAR FILTRATION RATE 29.9 mL/min (>60); POTASSIUM 3.6 MMOL/L (3.5-5.1); SODIUM 141 MMOL/L (136-145); TOTAL PROTEIN 6.4 G/DL (6.4-8.2)
[2017-07-11] MEDS ORDERED: Heparin 25,000u/D5W 500ml 500 ML IV SCH ×2 (05:30→12:15)
[2017-07-11] MEDS: acetaZOLAMIDE 500mg Inj IVP SCH (05:32)
--- NOTE | 2017-07-11 07:46 | Nephrology Progress Note ---
Assessment/Plan Problem List: (1) Diabetes (2) CHF (congestive heart failure) (3) BETHANY (acute kidney injury) (4) CKD (chronic kidney disease) stage 3, GFR 30-59 ml/min (5) COPD (chronic obstructive pulmonary disease) Plan neg fluid balance xcontinue diuresis increase insulin Subjective Constitutional: Reports: weakness HEENT: Reports: no symptoms Genitourinary: Reports: no symptoms Neurologic/Psychiatric: Reports: no symptoms Objective Objective Last 24 Hour Vital Signs Date Time Temp Pulse Resp B/P (MAP) Pulse Ox O2 Delivery O2 Flow Rate FiO2 07/11/17 07:20 79 20 100 Mechanical Ventilator 35 07/11/17 07:09 74 13 100 Mechanical Ventilator 35 07/11/17 07:05 74 13 40 07/11/17 07:00 78 18 114/58 100 Mechanical Ventilator 35 07/11/17 06:00 72 18 106/79 100 Mechanical Ventilator 35 07/11/17 05:00 74 18 109/92 100 Mechanical Ventilator 35 07/11/17 05:00 70 13 40 07/11/17 04:00 98.8 74 21 134/85 99 Mechanical Ventilator 35 07/11/17 04:00 71 07/11/17 04:00 35 07/11/17 03:27 69 12 40 07/11/17 03:27 71 12 100 Mechanical Ventilator 35 07/11/17 03:22 35 07/11/17 03:22 70 12 100 Mechanical Ventilator 35 07/11/17 03:00 70 18 134/73 100 Mechanical Ventilator 35 07/11/17 02:00 74 18 109/92 100 Mechanical Ventilator 35 07/11/17 01:00 71 13 40 07/11/17 01:00 72 18 135/68 100 Mechanical Ventilator 35 07/11/17 00:00 72 07/11/17 00:00 35 07/11/17 00:00 98.7 72 21 128/67 99 Mechanical Ventilator 35 07/10/17 23:16 74 12 100 Mechanical Ventilator 35 07/10/17 23:10 74 12 40 07/10/17 23:10 74 12 100 Mechanical Ventilator 35 07/10/17 23:10 35 07/10/17 23:00 76 18 131/86 100 Mechanical Ventilator 35 07/10/17 22:00 78 18 131/88 100 Mechanical Ventilator 35 07/10/17 21:15 82 14 40 07/10/17 21:00 78 18 131/86 100 Mechanical Ventilator 35 07/10/17 20:32 85 114/70 07/10/17 20:00 35 07/10/17 20:00 98.1 81 19 133/69 96 Mechanical Ventilator 35 07/10/17 20:00 78 07/10/17 19:29 85 14 96 Mechanical Ventilator 35 07/10/17 19:23 35 07/10/17 19:23 87 15 95 Mechanical Ventilator 35 07/10/17 19:00 84 23 114/70 96 Mechanical Ventilator 35 07/10/17 19:00 87 13 40 07/10/17 18:00 59 16 114/70 100 Mechanical Ventilator 28 07/10/17 17:00 79 22 139/74 97 Mechanical Ventilator 35 07/10/17 16:53 78 23 40 07/10/17 16:00 84 07/10/17 16:00 35 07/10/17 16:00 99.1 80 21 137/77 93 Mechanical Ventilator 35 07/10/17 15:20 81 18 100 Mechanical Ventilator 35 07/10/17 15:19 35 07/10/17 15:19 87 18 100 Mechanical Ventilator 35 07/10/17 15:12 87 18 40 07/10/17 15:00 83 21 136/93 96 Mechanical Ventilator 35 07/10/17 14:00 77 17 143/80 96 Mechanical Ventilator 35 07/10/17 13:00 75 17 156/76 96 Mechanical Ventilator 35 07/10/17 13:00 73 16 40 07/10/17 12:00 98.6 74 17 130/74 97 Mechanical Ventilator 35 07/10/17 12:00 45 07/10/17 11:00 75 17 130/74 Mechanical Ventilator 35 07/10/17 10:51 77 16 40 07/10/17 10:00 88 18 154/80 95 Mechanical Ventilator 40 93 07/10/17 09:30 92 155/89 07/10/17 09:28 92 07/10/17 09:03 86 29 35 07/10/17 09:00 93 18 155/80 95 Mechanical Ventilator 40 93 07/10/17 08:55 95 07/10/17 08:00 85 30 145/77 96 Mechanical Ventilator 40 85 07/10/17 08:00 84 Laboratory Tests 07/10/17 18:23: Activated Partial Thromboplast Time 24 12/4/17 03:00: Activated Partial Thromboplast Time 168*H, White Blood Count 14.4H, Red Blood Count 3.29L, Hemoglobin 10.7L, Hematocrit 35.2L, Mean Corpuscular Volume 107H, Mean Corpuscular Hemoglobin 32.7H, Mean Corpuscular Hemoglobin Concent 30.5L, Red Cell Distribution Width 14.0, Platelet Count 152, Mean Platelet Volume 8.9, Neutrophils (%) (Auto) , Lymphocytes (%) (Auto) , Monocytes (%) (Auto) , Eosinophils (%) (Auto) , Basophils (%) (Auto) , Sodium Level 141, Potassium Level 3.6, Chloride Level 100, Carbon Dioxide Level 37H, Anion Gap 5, Blood Urea Nitrogen 60H, Creatinine 2.0H, Estimat Glomerular Filtration Rate 29.9, Glucose Level 377#H, Calcium Level 9.2, Total Bilirubin 0.4, Aspartate Amino Transf (AST/SGOT) 17, Alanine Aminotransferase (ALT/SGPT) 25, Alkaline Phosphatase 62, Total Protein 6.4, Albumin 2.7L, Globulin 3.7, Albumin/Globulin Ratio 0.7L Height (Feet): 6 Height (Inches): 0.00 Weight (Pounds): 216 General Appearance: alert, obese EENT: normal ENT inspection Neck: normal alignment Cardiovascular: regularly irregular Respiratory/Chest: decreased breath sounds, rhonchi - bilaterally Abdomen: non tender, soft Extremities: other - no edema 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
[2017-07-11] MEDS: Digoxin 0.125mg tab NG SCH (08:46)
[2017-07-11] MEDS: Losartan 50mg tab NG SCH (08:46)
[2017-07-11] MEDS: Venlafaxine HCl 37.5mg Tab NG SCH ×3 (08:46→17:24)
[2017-07-11] MEDS: Metoprolol Tartrate 50mg tab NG SCH ×2 (08:47→20:23)
[2017-07-11] MEDS: Aspirin Baby 81mg NG SCH (08:47)
[2017-07-11] MEDS: Solu-MEDROL 40mg Inj IVP SCH ×2 (09:06→20:23)
[2017-07-11] MEDS: Pantoprazole Inj IVP SCH (09:10)
[2017-07-11 09:50] LABS: ABG PCO2 62.3 mmHg (35.0-45.0)
[2017-07-11 09:51] LABS: ABG ALLEN TEST POSITIVE
--- NOTE | 2017-07-11 11:03 | Diagnostic Imaging Report ---
Indication: SOB Technique: One view of the chest Comparison: 07/09/2017 Findings: There is evidence of slightly decreased pleural fluid on the left. Left basilar consolidation and atelectasis, right basilar hazy opacity persists, unchanged. Stable satisfactory position of endotracheal tube. Interim placement of a nasogastric tube, tip of which projects beyond the edge of the image, presumably in good position. Impression: Improved but persistent large left pleural effusion, over 2 days Other stable findings as described Satisfactory nasogastric intubation, also described on recent abdomen radiograph
[2017-07-11] MEDS: NovoLOG Insulin Flexpen SUBQ SCH ×3 (11:30→20:24)
[2017-07-11] MEDS: Heparin 25,000u/D5W 500ml 500 ML IV SCH ×2 (14:54→21:31)
--- NOTE | 2017-07-11 17:18 | Pulmonology Progress Note ---
Assessment/Plan Assessment/Plan 1. Respiratory failure. 2. Congestive heart failure with pulm edema, severe MR 3. Chronic obstructive pulmonary disease 4. Chronic kidney disease, BETHANY - stable 5. Hypertension. 6. Sepsis, BC+ [employer] Plan: A fib episodes rate controlled spontaneous TV better; weaning trials vent, HHN lasix, steroids abx Subjective ROS Limited/Unobtainable: Yes Allergies: Coded Allergies: No Known Allergies (Unverified , 05/03/17) Objective Last 24 Hour Vital Signs Date Time Temp Pulse Resp B/P (MAP) Pulse Ox O2 Delivery O2 Flow Rate FiO2 07/11/17 17:00 74 32 132/64 94 Nasal Cannula 4.0 07/11/17 16:00 72 07/11/17 16:00 72 32 130/63 94 Nasal Cannula 4.0 07/11/17 15:11 76 23 97 Nasal Cannula 2.0 28 07/11/17 15:01 78 25 98 Nasal Cannula 2.0 28 07/11/17 15:00 78 30 116/76 94 Nasal Cannula 4.0 07/11/17 14:00 78 29 129/68 94 Nasal Cannula 4.0 07/11/17 13:00 80 33 128/72 94 Nasal Cannula 4.0 07/11/17 12:00 76 24 07/11/17 12:00 77 30 90/78 94 Nasal Cannula 4.0 07/11/17 12:00 87 07/11/17 11:52 78 22 100 Mechanical Ventilator 35 07/11/17 11:43 72 22 35 07/11/17 11:42 76 27 95 Mechanical Ventilator 35 07/11/17 11:00 77 30 131/78 100 Mechanical Ventilator 35 07/11/17 10:00 72 24 132/69 100 Mechanical Ventilator 35 07/11/17 09:03 96 07/11/17 09:00 94 30 123/60 100 Mechanical Ventilator 35 07/11/17 09:00 76 26 35 07/11/17 08:47 78 133/92 07/11/17 08:46 133/92 07/11/17 08:46 79 07/11/17 08:00 35 07/11/17 08:00 72 07/11/17 08:00 98.9 87 19 133/92 95 Mechanical Ventilator 35 07/11/17 07:20 79 20 100 Mechanical Ventilator 35 07/11/17 07:09 74 13 100 Mechanical Ventilator 35 07/11/17 07:05 74 13 35 07/11/17 07:00 78 18 114/58 100 Mechanical Ventilator 35 07/11/17 06:00 72 18 106/79 100 Mechanical Ventilator 35 07/11/17 05:00 74 18 109/92 100 Mechanical Ventilator 35 07/11/17 05:00 70 13 40 07/11/17 04:00 98.8 74 21 134/85 99 Mechanical Ventilator 35 07/11/17 04:00 71 07/11/17 04:00 35 07/11/17 03:27 69 12 40 07/11/17 03:27 71 12 100 Mechanical Ventilator 35 07/11/17 03:22 35 07/11/17 03:22 70 12 100 Mechanical Ventilator 35 07/11/17 03:00 70 18 134/73 100 Mechanical Ventilator 35 07/11/17 02:00 74 18 109/92 100 Mechanical Ventilator 35 07/11/17 01:00 71 13 40 07/11/17 01:00 72 18 135/68 100 Mechanical Ventilator 35 07/11/17 00:00 72 07/11/17 00:00 35 07/11/17 00:00 98.7 72 21 128/67 99 Mechanical Ventilator 35 07/10/17 23:16 74 12 100 Mechanical Ventilator 35 07/10/17 23:10 74 12 40 07/10/17 23:10 74 12 100 Mechanical Ventilator 35 07/10/17 23:10 35 07/10/17 23:00 76 18 131/86 100 Mechanical Ventilator 35 07/10/17 22:00 78 18 131/88 100 Mechanical Ventilator 35 07/10/17 21:15 82 14 40 07/10/17 21:00 78 18 131/86 100 Mechanical Ventilator 35 07/10/17 20:32 85 114/70 07/10/17 20:00 35 07/10/17 20:00 98.1 81 19 133/69 96 Mechanical Ventilator 35 07/10/17 20:00 78 07/10/17 19:29 85 14 96 Mechanical Ventilator 35 07/10/17 19:23 35 07/10/17 19:23 87 15 95 Mechanical Ventilator 35 07/10/17 19:00 84 23 114/70 96 Mechanical Ventilator 35 07/10/17 19:00 87 13 40 07/10/17 18:00 59 16 114/70 100 Mechanical Ventilator 28 Intake and Output 07/11/17 07/12/17 19:00 07:00 Intake Total 721.154 ml Output Total 775 ml Balance -53.846 ml IV Total 171.154 ml Tube Feeding 550 ml Output Urine Total 775 ml Objective very alert General Appearance: no acute distress Respiratory/Chest: decreased breath sounds Cardiovascular: normal rate Laboratory Tests 07/10/17 18:23: Activated Partial Thromboplast Time 24 07/11/17 03:00: Activated Partial Thromboplast Time 168*H, White Blood Count 14.4H, Red Blood Count 3.29L, Hemoglobin 10.7L, Hematocrit 35.2L, Mean Corpuscular Volume 107H, Mean Corpuscular Hemoglobin 32.7H, Mean Corpuscular Hemoglobin Concent 30.5L, Red Cell Distribution Width 14.0, Platelet Count 152, Mean Platelet Volume 8.9, Neutrophils (%) (Auto) , Lymphocytes (%) (Auto) , Monocytes (%) (Auto) , Eosinophils (%) (Auto) , Basophils (%) (Auto) , Sodium Level 141, Potassium Level 3.6, Chloride Level 100, Carbon Dioxide Level 37H, Anion Gap 5, Blood Urea Nitrogen 60H, Creatinine 2.0H, Estimat Glomerular Filtration Rate 29.9, Glucose Level 377#H, Calcium Level 9.2, Total Bilirubin 0.4, Aspartate Amino Transf (AST/SGOT) 17, Alanine Aminotransferase (ALT/SGPT) 25, Alkaline Phosphatase 62, Total Protein 6.4, Albumin 2.7L, Globulin 3.7, Albumin/Globulin Ratio 0.7L 07/11/17 09:35: Arterial Blood pH 7.402, Arterial Blood Partial Pressure CO2 62.3*H, Arterial Blood Partial Pressure O2 55.8L, Arterial Blood HCO3 37.9H, Arterial Blood Oxygen Saturation 86.9L, Arterial Blood Base Excess 11.0, Alfredo Test Positive 07/11/17 12:00: Activated Partial Thromboplast Time 137H, Vancomycin Level Trough 22.7H Current Medications Medications (Trade) Dose Ordered Sig/Luis Miguel Route PRN Reason Start Time Stop Time Status Last Admin Dose Admin Acetaminophen (Tylenol) 650 mg Q4H PRN NG Mild Pain/Temp > 100.5 07/06/17 08:45 08/05/17 08:44 07/06/17 13:22 Aspirin (ASA) 81 mg DAILY NG 07/06/17 09:30 08/05/17 09:29 07/11/17 08:47 Atorvastatin Calcium (Lipitor) 80 mg BEDTIME GT 07/09/17 21:00 08/05/17 20:59 07/10/17 20:32 Dextrose (Dextrose 50%) STAT PRN IV Hypoglycemia 07/11/17 08:00 08/10/17 07:59 Digoxin (Lanoxin) 0.125 mg DAILY NG 07/10/17 09:00 08/09/17 08:59 07/11/17 08:46 Furosemide (Lasix) 40 mg Q12HR IV 07/09/17 09:00 08/08/17 08:59 07/11/17 09:10 Heparin Sodium/ Dextrose 500 ml @ 21.555 mls/ hr adjust per protocol IV 07/11/17 15:00 08/10/17 14:59 07/11/17 14:54 Insulin Aspart (NovoLOG Mix 70/ 30) 16 units PRE BFAST AND DINNER SUBQ 07/11/17 09:00 08/10/17 08:59 07/11/17 16:42 Insulin Aspart (NovoLOG) BEFORE MEALS AND HS SUBQ 07/11/17 11:30 08/10/17 11:29 07/11/17 16:41 Ipratropium [place] (Atrovent) 500 mcg Q4HRT HHN 07/10/17 15:00 07/15/17 14:59 07/11/17 15:01 Levalbuterol HCl (Xopenex) 1.25 mg Q4H PRN HHN Shortness of Breath 1st Line A 07/08/17 13:00 07/13/17 12:59 Lorazepam (Ativan 2mg/ml 1ml) 0.5 mg EVERY 3 HOURS PRN IV For Anxiety 07/06/17 08:45 07/13/17 08:44 07/10/17 01:08 Losartan Potassium (Cozaar) 100 mg DAILY NG 07/10/17 09:00 08/06/17 12:59 07/11/17 08:46 Methylprednisolone Sodium Succinate (Solu-MEDROL) 40 mg EVERY 12 HOURS IVP 07/07/17 09:00 08/06/17 08:59 07/11/17 09:06 Metoprolol Tartrate (Lopressor) 50 mg Q12HR NG 07/09/17 21:00 08/05/17 09:29 07/11/17 08:47 Pantoprazole (Protonix) 40 mg DAILY IVP 07/06/17 11:00 08/05/17 10:59 07/11/17 09:10 Piperacillin Sod/ Tazobactam Sod 3.375 gm/Dextrose 55 ml @ 13.75 mls/ hr Q8H IVPB 07/06/17 10:00 07/13/17 09:59 07/11/17 10:12 Vancomycin HCl (Vanco rx to dose) 1 ea DAILY PRN MISC Per rx protocol 07/06/17 08:45 08/05/17 08:44 Vancomycin/Sodium Chloride 250 ml @ 166.667 mls/hr Q24H IVPB 07/11/17 20:00 07/16/17 19:59 Venlafaxine HCl (Effexor) 75 mg THREE TIMES A DAY NG 07/06/17 13:00 08/05/17 12:59 07/11/17 13:00 KRIS ZAPATA Jul 11, 2017 17:18
[2017-07-11] MEDS ORDERED: Vancomycin 750mg/NS 250ml IVPB SCH (20:00)
[2017-07-11] MEDS: Atorvastatin 80mg tab GT SCH (20:23)
[2017-07-12] VITALS (16 sets, daily range): BP systolic 113–158; BP diastolic 63–98
[2017-07-12] MEDS: Zoysn 3.37gm in D5W 55ml IVPB SCH ×2 (02:30→12:14)
[2017-07-12] MEDS: LORazepam Inj 2mg/ml 1ml IV PRN (02:31)
[2017-07-12] MEDS: Ipratropium 0.02% Inh Soln 2.5ml UD HHN SCH ×6 (03:13→22:35)
[2017-07-12 05:07] LABS: ANION GAP 8 mmol/L (5-15); CALCIUM 9.3 MG/DL (8.5-10.1); CARBON DIOXIDE 35 MMOL/L (21-32); CHLORIDE 103 MMOL/L (98-107); CREATININE 2.2 MG/DL (0.55-1.30); GLOMERULAR FILTRATION RATE 26.8 mL/min (>60); MAGNESIUM 2.4 MG/DL (1.8-2.4); PHOSPHORUS 5.4 MG/DL (2.5-4.9); POTASSIUM 3.6 MMOL/L (3.5-5.1); SODIUM 146 MMOL/L (136-145); URIC ACID 6.8 MG/DL (2.6-7.2)
[2017-07-12] MEDS: NovoLOG Insulin Flexpen SUBQ SCH ×4 (07:01→21:16)
[2017-07-12] MEDS: Digoxin 0.125mg tab NG SCH (11:29)
[2017-07-12] MEDS: Losartan 50mg tab NG SCH (11:31)
[2017-07-12] MEDS: Aspirin Baby 81mg NG SCH (11:32)
[2017-07-12] MEDS: Metoprolol Tartrate 50mg tab NG SCH ×2 (11:33→21:13)
[2017-07-12] MEDS: Pantoprazole Inj IVP SCH (11:33)
[2017-07-12] MEDS: Solu-MEDROL 40mg Inj IVP SCH ×2 (11:34→21:14)
[2017-07-12] MEDS: Heparin 25,000u/D5W 500ml 500 ML IV SCH ×2 (11:36→14:17)
[2017-07-12] MEDS: Venlafaxine HCl 37.5mg Tab NG SCH ×4 (12:41→18:33)
--- NOTE | 2017-07-12 14:17 | Pulmonology Progress Note ---
Assessment/Plan Assessment/Plan 1. Respiratory failure, extubated 2. Congestive heart failure with pulm edema, severe MR 3. Chronic obstructive pulmonary disease 4. Chronic kidney disease, BETHANY - stable 5. Hypertension. 6. 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 Parox A fib, heparin drip Plan: extubated yesterday no SOB failed swallow eval ?oral AC, per cardiology lasix, steroids abx Subjective Constitutional: Reports: fatigue Allergies: Coded Allergies: No Known Allergies (Unverified , 05/03/17) Objective Last 24 Hour Vital Signs Date Time Temp Pulse Resp B/P (MAP) Pulse Ox O2 Delivery O2 Flow Rate FiO2 07/12/17 13:00 98.1 34 130/70 94 Nasal Cannula 4.0 07/12/17 12:00 83 07/12/17 12:00 98.5 80 27 127/67 88 Nasal Cannula 4.0 07/12/17 11:33 82 126/72 07/12/17 11:31 126/72 07/12/17 11:29 82 07/12/17 11:05 81 30 96 Nasal Cannula 2.0 28 07/12/17 11:00 86 27 126/72 97 Nasal Cannula 4.0 07/12/17 10:55 83 22 92 Nasal Cannula 2.0 28 07/12/17 10:00 81 33 150/72 92 Nasal Cannula 4.0 07/12/17 09:00 78 27 133/73 97 Nasal Cannula 4.0 07/12/17 08:00 98.1 77 31 129/65 90 Nasal Cannula 4.0 07/12/17 08:00 77 07/12/17 07:24 75 32 98 Nasal Cannula 2.0 28 07/12/17 07:11 76 28 96 Nasal Cannula 4.0 36 07/12/17 07:10 Nasal Cannula 4.0 36 07/12/17 07:10 96 Nasal Cannula 4.0 36 07/12/17 07:00 75 28 140/73 98 Nasal Cannula 4.0 07/12/17 06:00 77 28 130/67 96 Nasal Cannula 4.0 07/12/17 05:00 77 31 130/67 95 Nasal Cannula 4.0 07/12/17 04:00 86 07/12/17 04:00 98.0 81 31 136/67 94 Nasal Cannula 4.0 07/12/17 03:55 85 20 Nasal Cannula 2.0 28 07/12/17 03:25 85 35 92 Nasal Cannula 2.0 28 07/12/17 03:13 84 34 95 Nasal Cannula 2.0 28 07/12/17 03:00 80 31 129/74 94 Nasal Cannula 4.0 07/12/17 02:00 80 31 140/70 94 Nasal Cannula 4.0 07/12/17 01:00 83 31 152/79 93 Nasal Cannula 4.0 07/12/17 00:00 85 26 140/72 93 Nasal Cannula 4.0 07/12/17 00:00 98.6 86 26 126/75 93 Nasal Cannula 4.0 07/12/17 00:00 83 07/11/17 23:35 80 28 100 Nasal Cannula 2.0 28 07/11/17 23:26 07/11/17 23:24 84 24 92 Nasal Cannula 2.0 28 07/11/17 23:00 86 26 130/80 90 Nasal Cannula 4.0 07/11/17 22:45 97.9 74 12 125/63 Room Air 07/11/17 22:45 Room Air 07/11/17 22:00 86 26 126/75 90 Nasal Cannula 4.0 07/11/17 21:00 86 27 134/80 90 Nasal Cannula 4.0 07/11/17 20:23 82 122/66 07/11/17 20:00 Nasal Cannula 2.0 28 07/11/17 20:00 98.0 07/11/17 20:00 92 Nasal Cannula 2.0 28 07/11/17 20:00 84 27 130/63 94 Nasal Cannula 4.0 07/11/17 20:00 84 07/11/17 19:09 78 25 99 Nasal Cannula 2.0 28 07/11/17 19:02 81 26 93 Nasal Cannula 2.0 28 07/11/17 19:00 97.7 69 12 121/39 Room Air 07/11/17 19:00 Room Air 07/11/17 19:00 98.8 82 27 141/64 94 Nasal Cannula 4.0 07/11/17 18:00 76 27 131/62 94 Nasal Cannula 4.0 07/11/17 17:00 74 32 132/64 94 Nasal Cannula 4.0 07/11/17 16:00 72 07/11/17 16:00 72 32 130/63 94 Nasal Cannula 4.0 07/11/17 15:11 76 23 97 Nasal Cannula 2.0 28 07/11/17 15:01 78 25 98 Nasal Cannula 2.0 28 07/11/17 15:00 78 30 116/76 94 Nasal Cannula 4.0 Intake and Output 07/12/17 07/13/17 19:00 07:00 Intake Total 493.075 ml Output Total 285 ml Balance 208.075 ml IV Total 143.075 ml Tube Feeding 330 ml Other 20 ml Output Urine Total 285 ml # Bowel Movements 2 Objective very alert General Appearance: no acute distress Respiratory/Chest: lungs clear Cardiovascular: normal rate Abdomen: soft, non tender Laboratory Tests 07/11/17 20:55: Activated Partial Thromboplast Time 83H 07/12/17 04:00: Activated Partial Thromboplast Time 88H, Sodium Level 146H, Potassium Level 3.6 , Chloride Level 103, Carbon Dioxide Level 35H, Anion Gap 8, Blood Urea Nitrogen 71H, Creatinine 2.2H, Estimat Glomerular Filtration Rate 26.8, Glucose Level 152#H, Uric Acid 6.8, Calcium Level 9.3, Phosphorus Level 5.4H, Magnesium Level 2.4 Current Medications Medications (Trade) Dose Ordered Sig/Luis Miguel Route PRN Reason Start Time Stop Time Status Last Admin Dose Admin Acetaminophen (Tylenol) 650 mg Q4H PRN NG Mild Pain/Temp > 100.5 07/12/17 16:45 08/05/17 08:44 UNV Aspirin (ASA) 81 mg DAILY NG 07/13/17 09:00 08/05/17 09:29 UNV Atorvastatin Calcium (Lipitor) 80 mg BEDTIME GT 07/12/17 21:00 08/05/17 20:59 UNV Dextrose (Dextrose 50%) STAT PRN IV Hypoglycemia 07/13/17 08:00 08/10/17 07:59 UNV Digoxin (Lanoxin) 0.125 mg DAILY NG 07/13/17 09:00 08/09/17 08:59 UNV Furosemide (Lasix) 40 mg Q12HR IV 07/12/17 21:00 08/08/17 08:59 UNV Heparin Sodium/ Dextrose 500 ml @ 21.754 mls/ hr adjust per protocol IV 07/12/17 14:15 08/10/17 14:14 Insulin Aspart (NovoLOG Mix 70/ 30) 16 units PRE BFAST AND DINNER SUBQ 07/12/17 16:30 08/10/17 08:59 UNV Insulin Aspart (NovoLOG) BEFORE MEALS AND HS SUBQ 07/12/17 16:30 08/10/17 11:29 UNV Ipratropium [place] (Atrovent) 500 mcg Q4HRT HHN 07/12/17 15:00 07/15/17 14:59 UNV Levalbuterol HCl (Xopenex) 1.25 mg Q4H PRN HHN Shortness of Breath 1st Line A 07/12/17 17:00 07/13/17 12:59 UNV Lorazepam (Ativan 2mg/ml 1ml) 0.5 mg EVERY 3 HOURS PRN IV For Anxiety 07/12/17 15:00 07/13/17 08:44 UNV Losartan Potassium (Cozaar) 100 mg DAILY NG 07/13/17 09:00 08/06/17 12:59 UNV Methylprednisolone Sodium Succinate (Solu-MEDROL) 20 mg EVERY 12 HOURS IVP 07/12/17 21:00 08/10/17 20:59 UNV Metoprolol Tartrate (Lopressor) 50 mg Q12HR NG 07/12/17 21:00 08/05/17 09:29 UNV Pantoprazole (Protonix) 40 mg DAILY IVP 07/13/17 09:00 08/05/17 10:59 UNV Piperacillin Sod/ Tazobactam Sod 3.375 gm/Dextrose 55 ml @ 13.75 mls/ hr Q8H IVPB 07/12/17 18:00 07/12/17 23:59 UNV Vancomycin HCl (Vanco rx to dose) 1 ea DAILY PRN MISC Per rx protocol 07/13/17 09:00 07/13/17 23:59 UNV Vancomycin/Sodium Chloride 250 ml @ 166.667 mls/hr Q24H IVPB 07/12/17 20:00 07/12/17 23:59 UNV Venlafaxine HCl (Effexor) 75 mg THREE TIMES A DAY NG 07/12/17 13:45 08/05/17 12:59 UNV KRIS ZAPATA Jul 12, 2017 14:17
[2017-07-12] MEDS ORDERED: Levalbuterol Inh UD 1.25mg/0.5ml HHN PRN (15:00)
[2017-07-12] MEDS ORDERED: LORazepam Inj 2mg/ml 1ml IV PRN (15:00)
--- NOTE | 2017-07-12 15:00 | Progress Note ---
DATE: 07/11/2017 CARDIOLOGY PROGRESS NOTE SUBJECTIVE: The patient remains in the intensive care unit. Orally intubated. Mechanically ventilated. Condition remains critical. Prognosis remains guarded. The patient continues to have atrial fibrillation, ventricular ectopic. Rate control has been achieved. OBJECTIVE: VITAL SIGNS: Blood pressure is 130/63, pulse 72, and respiratory rate 32. LUNGS: Bilateral breath sounds. HEART: Irregularly irregular rhythm. Normal S1 and S2. ABDOMEN: Soft. EXTREMITIES: Trace dependent edema. LABORATORY DATA: White count 14 and hemoglobin 10.7. ABG, 7.40/62/56. Sodium is 141, potassium 3.6, bicarbonate 37, BUN 60, and creatinine 2. Albumin is 2.7. DIAGNOSTIC DATA: Chest x-ray today is notable for large left pleural effusion and left basilar consolidation. IMPRESSION: 1. Acute respiratory failure. 2. Acute on chronic systolic and diastolic congestive heart failure. 3. Nonsustained ventricular tachycardia. 4. Cardiac defibrillator. 5. Paroxysmal atrial fibrillation. 6. Acute on chronic renal failure. 7. Moderate protein-calorie malnutrition. 8. Heparin-associated coagulopathy. PLAN: 1. Antimicrobials. 2. Ventilator support with weaning. 3. Consider thoracentesis. 4. Diuresis. 5. Full anticoagulation for cardioembolic prophylaxis. Víctor Kuhn M.D. DR: Charan JOB#: [id number] CC:
[2017-07-12] MEDS ORDERED: Acetaminophen 650mg/20.3ml NG PRN (16:45)
[2017-07-12] MEDS ORDERED: Piperacillin/Tazobactam 3.375 GM in D5W 55 ML IVPB SCH (18:00)
--- NOTE | 2017-07-12 19:47 | Nephrology Progress Note ---
Assessment/Plan Problem List: (1) Diabetes (2) CHF (congestive heart failure) (3) BETHANY (acute kidney injury) (4) CKD (chronic kidney disease) stage 3, GFR 30-59 ml/min (5) COPD (chronic obstructive pulmonary disease) Plan neg fluid balance xcontinue diuresis increase insulin done glu better high bun/ creat ratio ok to keep relatively dry Subjective Constitutional: Reports: weakness HEENT: Reports: no symptoms Genitourinary: Reports: no symptoms Neurologic/Psychiatric: Reports: no symptoms Objective Objective Last 24 Hour Vital Signs Date Time Temp Pulse Resp B/P (MAP) Pulse Ox O2 Delivery O2 Flow Rate FiO2 07/12/17 19:12 82 24 98 Nasal Cannula 4.0 36 07/12/17 19:08 Nasal Cannula 4.0 36 07/12/17 19:08 82 22 93 Nasal Cannula 4.0 36 07/12/17 17:49 91 Nasal Cannula 2.0 28 07/12/17 16:14 81 07/12/17 16:14 97.9 86 18 113/63 91 Nasal Cannula 4.0 07/12/17 15:25 84 24 92 Nasal Cannula 2.0 28 07/12/17 15:16 85 20 90 Nasal Cannula 2.0 28 07/12/17 13:00 98.1 34 130/70 94 Nasal Cannula 4.0 07/12/17 12:00 83 07/12/17 12:00 98.5 80 27 127/67 88 Nasal Cannula 4.0 07/12/17 11:33 82 126/72 07/12/17 11:31 126/72 07/12/17 11:29 82 07/12/17 11:05 81 30 96 Nasal Cannula 2.0 28 07/12/17 11:00 86 27 126/72 97 Nasal Cannula 4.0 07/12/17 10:55 83 22 92 Nasal Cannula 2.0 28 07/12/17 10:00 81 33 150/72 92 Nasal Cannula 4.0 07/12/17 09:00 78 27 133/73 97 Nasal Cannula 4.0 07/12/17 08:00 98.1 77 31 129/65 90 Nasal Cannula 4.0 07/12/17 08:00 77 07/12/17 07:24 75 32 98 Nasal Cannula 2.0 28 07/12/17 07:11 76 28 96 Nasal Cannula 4.0 36 07/12/17 07:10 Nasal Cannula 4.0 36 07/12/17 07:10 96 Nasal Cannula 4.0 36 07/12/17 07:00 75 28 140/73 98 Nasal Cannula 4.0 07/12/17 06:00 77 28 130/67 96 Nasal Cannula 4.0 07/12/17 05:00 77 31 130/67 95 Nasal Cannula 4.0 07/12/17 04:00 86 07/12/17 04:00 98.0 81 31 136/67 94 Nasal Cannula 4.0 07/12/17 03:55 85 20 Nasal Cannula 2.0 28 07/12/17 03:25 85 35 92 Nasal Cannula 2.0 28 07/12/17 03:13 84 34 95 Nasal Cannula 2.0 28 07/12/17 03:00 80 31 129/74 94 Nasal Cannula 4.0 07/12/17 02:00 80 31 140/70 94 Nasal Cannula 4.0 07/12/17 01:00 83 31 152/79 93 Nasal Cannula 4.0 07/12/17 00:00 85 26 140/72 93 Nasal Cannula 4.0 07/12/17 00:00 98.6 86 26 126/75 93 Nasal Cannula 4.0 07/12/17 00:00 83 07/11/17 23:35 80 28 100 Nasal Cannula 2.0 28 07/11/17 23:26 07/11/17 23:24 84 24 92 Nasal Cannula 2.0 28 07/11/17 23:00 86 26 130/80 90 Nasal Cannula 4.0 07/11/17 22:45 97.9 74 12 125/63 Room Air 07/11/17 22:45 Room Air 07/11/17 22:00 86 26 126/75 90 Nasal Cannula 4.0 07/11/17 21:00 86 27 134/80 90 Nasal Cannula 4.0 07/11/17 20:23 82 122/66 07/11/17 20:00 Nasal Cannula 2.0 28 07/11/17 20:00 98.0 07/11/17 20:00 92 Nasal Cannula 2.0 28 07/11/17 20:00 84 27 130/63 94 Nasal Cannula 4.0 07/11/17 20:00 84 Intake and Output 07/12/17 07/13/17 19:00 07:00 Intake Total 975.091 ml 35.504 ml Output Total 635 ml Balance 340.091 ml 35.504 ml IV Total 230.091 ml 35.504 ml Tube Feeding 605 ml Other 140 ml Output Urine Total 635 ml # Bowel Movements 4 Laboratory Tests 07/11/17 20:55: Activated Partial Thromboplast Time 83H 07/12/17 04:00: Activated Partial Thromboplast Time 88H, Sodium Level 146H, Potassium Level 3.6 , Chloride Level 103, Carbon Dioxide Level 35H, Anion Gap 8, Blood Urea Nitrogen 71H, Creatinine 2.2H, Estimat Glomerular Filtration Rate 26.8, Glucose Level 152#H, Uric Acid 6.8, Calcium Level 9.3, Phosphorus Level 5.4H, Magnesium Level 2.4 Height (Feet): 6 Height (Inches): 0.00 Weight (Pounds): 218 General Appearance: no apparent distress, alert, morbidly obese EENT: normal ENT inspection Neck: non-tender, normal alignment Cardiovascular: regular rhythm Respiratory/Chest: decreased breath sounds Extremities: other - no edema 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
[2017-07-12] MEDS: Vancomycin 750mg/NS 250ml 250 ML IVPB SCH ×2 (20:18→22:25)
[2017-07-12] MEDS: Atorvastatin 80mg tab GT SCH (21:14)
[2017-07-13 00:21] VITALS: BP 122/68
--- NOTE | 2017-07-13 02:00 | Progress Note ---
DATE: 07/12/2017 CARDIOLOGY PROGRESS NOTE SUBJECTIVE: The patient has been extubated. She is without shortness of breath. She has failed her swallow evaluation and remains on NG-tube nutrition. OBJECTIVE: VITAL SIGNS: Blood pressure 127/67, pulse 80, and respiratory rate 27. Monitored rhythm sinus with paroxysms of atrial fibrillation and demand pacing, advanced. LUNGS: Few rhonchi. HEART: Irregularly irregular rhythm. Normal S1 and S2. A 1/6 systolic apical murmur. ABDOMEN: Soft. EXTREMITIES: With 1+ dependent edema. ICD pocket site is clean and dry. LABORATORY DATA: White count 14.4 and hemoglobin 10.7. Sodium 146, potassium 3.6, bicarbonate 35, BUN 71, and creatinine 2.2. IMPRESSION: 1. Status post respiratory failure. 2. Worsening renal failure. 3. Dehydration. 4. Hypernatremia. 5. Borderline hypokalemia. 6. Cardiac defibrillator. 7. Acute and chronic systolic and diastolic congestive heart failure. 8. Paroxysmal atrial and ventricular arrhythmias. 9. Moderate protein-calorie malnutrition. PLAN: 1. NG-tube feeds. 2. Repeat swallow evaluation soon. May need G-tube. 3. Free water replacement. 4. Hold additional diuresis. 5. Reassess volume status and cardiorenal parameters. 6. Continue IV heparin until able to tolerate oral intake, in case, she will need a PEG. 7. Transition to apixaban prior to discharge. Víctor Kuhn M.D. DR: Nixon JOB#: [id number] CC:
[2017-07-13] MEDS: Ipratropium 0.02% Inh Soln 2.5ml UD HHN SCH ×6 (03:06→23:35)
[2017-07-13 04:00] VITALS: BP 150/83
[2017-07-13 05:18] LABS: ALANINE AMINOTRANSFERASE 23 U/L (12-78); ALBUMIN/GLOBULIN RATIO 0.8 (1.0-2.7); ANION GAP 5 mmol/L (5-15); ASPARTATE AMINO TRANSFERASE 19 U/L (15-37); CARBON DIOXIDE 39 MMOL/L (21-32); CHLORIDE 102 MMOL/L (98-107); GLOMERULAR FILTRATION RATE 29.9 mL/min (>60); POTASSIUM 3.5 MMOL/L (3.5-5.1); SODIUM 146 MMOL/L (136-145); TOTAL PROTEIN 6.2 G/DL (6.4-8.2)
[2017-07-13 05:48] LABS: MEAN CORPUSCULAR HEMOGLOBIN 33.6 PG (27.0-31.0); MEAN CORPUSCULAR HGB CONC 31.2 G/DL (32.0-36.0); MEAN CORPUSCULAR VOLUME 108 FL (80-99); MEAN PLATELET VOLUME 8.7 FL (6.5-10.1); PLATELET COUNT 180 K/UL (150-450); RED CELL DISTRIBUTION WIDTH 13.6 % (11.6-14.8); WHITE BLOOD COUNT 16.2 K/UL (4.8-10.8)
[2017-07-13] MEDS: NovoLOG Insulin Flexpen SUBQ SCH ×4 (06:19→21:10)
--- NOTE | 2017-07-13 07:54 | Nephrology Progress Note ---
Assessment/Plan Problem List: (1) Diabetes (2) CHF (congestive heart failure) (3) BETHANY (acute kidney injury) (4) CKD (chronic kidney disease) stage 3, GFR 30-59 ml/min (5) COPD (chronic obstructive pulmonary disease) Plan last 24 hr + fluid balance xcontinue diuretics increase insulin done glu better high bun/creat ratio ok to keep relatively dry Subjective Constitutional: Reports: weakness HEENT: Reports: no symptoms Genitourinary: Reports: no symptoms Neurologic/Psychiatric: Reports: no symptoms Objective Objective Last 24 Hour Vital Signs Date Time Temp Pulse Resp B/P (MAP) Pulse Ox O2 Delivery O2 Flow Rate FiO2 07/13/17 04:00 97.5 77 18 150/83 92 Nasal Cannula 4.0 07/13/17 04:00 78 07/13/17 03:07 74 20 96 Nasal Cannula 3.0 32 07/13/17 03:00 73 20 93 Nasal Cannula 3.0 32 07/13/17 00:21 96.6 73 18 122/68 93 Nasal Cannula 4.0 07/13/17 00:00 70 07/12/17 22:45 64 20 100 Nasal Cannula 3.0 32 07/12/17 22:36 68 20 97 Nasal Cannula 4.0 36 07/12/17 21:13 87 118/71 07/12/17 20:00 83 07/12/17 20:00 97.3 87 18 118/71 92 Nasal Cannula 4.0 07/12/17 19:12 82 24 98 Nasal Cannula 4.0 36 07/12/17 19:08 Nasal Cannula 4.0 36 07/12/17 19:08 82 22 93 Nasal Cannula 4.0 36 07/12/17 17:49 91 Nasal Cannula 2.0 28 07/12/17 16:14 81 07/12/17 16:14 97.9 86 18 113/63 91 Nasal Cannula 4.0 07/12/17 15:25 84 24 92 Nasal Cannula 2.0 28 07/12/17 15:16 85 20 90 Nasal Cannula 2.0 28 07/12/17 13:00 98.1 34 130/70 94 Nasal Cannula 4.0 07/12/17 12:00 83 07/12/17 12:00 98.5 80 27 127/67 88 Nasal Cannula 4.0 07/12/17 11:33 82 126/72 07/12/17 11:31 126/72 07/12/17 11:29 82 07/12/17 11:05 81 30 96 Nasal Cannula 2.0 28 07/12/17 11:00 86 27 126/72 97 Nasal Cannula 4.0 07/12/17 10:55 83 22 92 Nasal Cannula 2.0 28 07/12/17 10:00 81 33 150/72 92 Nasal Cannula 4.0 07/12/17 09:00 78 27 133/73 97 Nasal Cannula 4.0 07/12/17 08:00 98.1 77 31 129/65 90 Nasal Cannula 4.0 07/12/17 08:00 77 Laboratory Tests 07/13/17 03:40: White Blood Count 16.2H, Red Blood Count 3.10L, Hemoglobin 10.4L, Hematocrit 33.4L, Mean Corpuscular Volume 108H, Mean Corpuscular Hemoglobin 33.6H, Mean Corpuscular Hemoglobin Concent 31.2L, Red Cell Distribution Width 13.6, Platelet Count 180, Mean Platelet Volume 8.7, Neutrophils (%) (Auto) , Lymphocytes (%) (Auto) , Monocytes (%) (Auto) , Eosinophils (%) (Auto) , Basophils (%) (Auto) , Neutrophils % (Manual) [Pending], Lymphocytes % (Manual) [Pending], Platelet Estimate [Pending], Platelet Morphology [Pending], Activated Partial Thromboplast Time 90H, Sodium Level 146H, Potassium Level 3.5 , Chloride Level 102, Carbon Dioxide Level 39H, Anion Gap 5, Blood Urea Nitrogen 71H, Creatinine 2.0H, Estimat Glomerular Filtration Rate 29.9, Glucose Level 192H, Calcium Level 9.0, Total Bilirubin 0.3, Aspartate Amino Transf (AST/ SGOT) 19, Alanine Aminotransferase (ALT/SGPT) 23, Alkaline Phosphatase 62, Pro-B -Type Natriuretic Peptide 4470H, Total Protein 6.2L, Albumin 2.7L, Globulin 3.5 , Albumin/Globulin Ratio 0.8L, Digoxin Level 1.1 Height (Feet): 6 Height (Inches): 0.00 Weight (Pounds): 219 General Appearance: no apparent distress, morbidly obese EENT: other - ng in place Neck: normal alignment Cardiovascular: normal rate, regular rhythm Respiratory/Chest: decreased breath sounds Abdomen: non tender, soft Extremities: other - no edema 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
[2017-07-13 08:00] VITALS: BP 96/67
[2017-07-13 08:22] LABS: BAND NEUTROPHILS % (MANUAL) 0 % (0-8); BASOPHILS % (MANUAL) 0 % (0-2); EOSINOPHILS % (MANUAL) 0 % (0-3); LYMPHOCYTES % (MANUAL) 4 % (20-45); NEUTROPHILS % (MANUAL) 92 % (45-75); PLATELET ESTIMATE ADEQUATE; PLATELET MORPHOLOGY NORMAL; TOTAL CELLS COUNTED 100
[2017-07-13 08:23] LABS: HYPOCHROMASIA 1+; MACROCYTES 1+
[2017-07-13] MEDS: Venlafaxine HCl 37.5mg Tab NG SCH ×3 (08:32→17:45)
[2017-07-13] MEDS: Digoxin Elixir 0.125mg NG SCH (08:33)
[2017-07-13] MEDS: Pantoprazole Inj IVP SCH (08:34)
[2017-07-13] MEDS: Solu-MEDROL 40mg Inj IVP SCH (08:34)
[2017-07-13] MEDS: Metoprolol Tartrate 50mg tab NG SCH ×2 (08:35→21:15)
[2017-07-13] MEDS: Losartan 50mg tab NG SCH (08:35)
[2017-07-13] MEDS ORDERED: Aspirin Baby 81mg NG SCH (09:00)
[2017-07-13] MEDS ORDERED: Sterile Water Irrig 1000ml IRRIG ONE (10:59)
[2017-07-13] MEDS ORDERED: Tubing IV Secondary IV ONE (10:59)
[2017-07-13] MEDS ORDERED: NS 500ML ONE (10:59)
[2017-07-13 12:00] VITALS: BP 133/76
[2017-07-13] MEDS: Heparin 25,000u/D5W 500ml 500 ML IV SCH (12:43)
--- NOTE | 2017-07-13 12:43 | Pulmonology Progress Note ---
Assessment/Plan Assessment/Plan 1. Respiratory failure, extubated 2. Congestive heart failure with pulm edema, severe MR 3. Chronic obstructive pulmonary disease 4. Chronic kidney disease, BETHANY - stable 5. Hypertension. 6. Sepsis, BC+ [employer] 7. Parox A fib, heparin drip Plan: start oral intake per ST failed swallow eval oral AC per cardiology lasix, steroids abx SNF on discharge; perhaps Tuesday Subjective Constitutional: Reports: other - swallow is better today per ST Respiratory: Denies: shortness of breath Allergies: Coded Allergies: No Known Allergies (Unverified , 05/03/17) Objective Last 24 Hour Vital Signs Date Time Temp Pulse Resp B/P (MAP) Pulse Ox O2 Delivery O2 Flow Rate FiO2 07/13/17 12:00 86 07/13/17 10:40 77 20 95 Nasal Cannula 3.0 32 07/13/17 10:37 86 20 92 Nasal Cannula 3.0 32 07/13/17 10:36 Nasal Cannula 3.0 32 07/13/17 10:36 92 Nasal Cannula 2.0 28 07/13/17 08:35 89 96/67 07/13/17 08:35 96/67 07/13/17 08:33 89 07/13/17 08:00 74 07/13/17 08:00 97.3 89 20 96/67 96 Nasal Cannula 4.0 07/13/17 04:00 97.5 77 18 150/83 92 Nasal Cannula 4.0 07/13/17 04:00 78 07/13/17 03:07 74 20 96 Nasal Cannula 3.0 32 07/13/17 03:00 73 20 93 Nasal Cannula 3.0 32 07/13/17 00:21 96.6 73 18 122/68 93 Nasal Cannula 4.0 07/13/17 00:00 70 07/12/17 22:45 64 20 100 Nasal Cannula 3.0 32 07/12/17 22:36 68 20 97 Nasal Cannula 4.0 36 07/12/17 21:13 87 118/71 07/12/17 20:00 83 07/12/17 20:00 97.3 87 18 118/71 92 Nasal Cannula 4.0 07/12/17 19:12 82 24 98 Nasal Cannula 4.0 36 07/12/17 19:08 Nasal Cannula 4.0 36 07/12/17 19:08 82 22 93 Nasal Cannula 4.0 36 07/12/17 17:49 91 Nasal Cannula 2.0 28 07/12/17 16:14 81 07/12/17 16:14 97.9 86 18 113/63 91 Nasal Cannula 4.0 07/12/17 15:25 84 24 92 Nasal Cannula 2.0 28 07/12/17 15:16 85 20 90 Nasal Cannula 2.0 28 07/12/17 13:00 98.1 34 130/70 94 Nasal Cannula 4.0 Intake and Output 07/13/17 07/14/17 19:00 07:00 Intake Total 378.770 ml Balance 378.770 ml Free Water 50 ml IV Total 108.770 ml Tube Feeding 220 ml Objective very alert General Appearance: no acute distress HEENT: atraumatic Respiratory/Chest: lungs clear, decreased breath sounds Cardiovascular: normal rate Laboratory Tests 07/13/17 03:40: White Blood Count 16.2H, Red Blood Count 3.10L, Hemoglobin 10.4L, Hematocrit 33.4L, Mean Corpuscular Volume 108H, Mean Corpuscular Hemoglobin 33.6H, Mean Corpuscular Hemoglobin Concent 31.2L, Red Cell Distribution Width 13.6, Platelet Count 180, Mean Platelet Volume 8.7, Neutrophils (%) (Auto) , Lymphocytes (%) (Auto) , Monocytes (%) (Auto) , Eosinophils (%) (Auto) , Basophils (%) (Auto) , Differential Total Cells Counted 100, Neutrophils % ( Manual) 92H, Lymphocytes % (Manual) 4L, Monocytes % (Manual) 4, Eosinophils % ( Manual) 0, Basophils % (Manual) 0, Band Neutrophils 0, Platelet Estimate Adequate, Platelet Morphology Normal, Hypochromasia 1+, Macrocytosis 1+, Activated Partial Thromboplast Time 90H, Sodium Level 146H, Potassium Level 3.5 , Chloride Level 102, Carbon Dioxide Level 39H, Anion Gap 5, Blood Urea Nitrogen 71H, Creatinine 2.0H, Estimat Glomerular Filtration Rate 29.9, Glucose Level 192H, Calcium Level 9.0, Total Bilirubin 0.3, Aspartate Amino Transf (AST/ SGOT) 19, Alanine Aminotransferase (ALT/SGPT) 23, Alkaline Phosphatase 62, Pro-B -Type Natriuretic Peptide 4470H, Total Protein 6.2L, Albumin 2.7L, Globulin 3.5 , Albumin/Globulin Ratio 0.8L, Digoxin Level 1.1 Current Medications Medications (Trade) Dose Ordered Sig/Luis Miguel Route PRN Reason Start Time Stop Time Status Last Admin Dose Admin Acetaminophen (Tylenol) 650 mg Q4H PRN NG Mild Pain/Temp > 100.5 07/12/17 16:45 08/05/17 08:44 Aspirin (ASA) 81 mg DAILY NG 07/13/17 09:00 08/05/17 09:29 07/13/17 08:33 Atorvastatin Calcium (Lipitor) 80 mg BEDTIME GT 07/12/17 21:00 08/05/17 20:59 07/12/17 21:14 Dextrose (Dextrose 50%) STAT PRN IV Hypoglycemia 07/12/17 14:30 08/11/17 14:29 Digoxin (Lanoxin) 0.125 mg DAILY NG 07/13/17 09:00 08/09/17 08:59 07/13/17 08:33 Furosemide (Lasix) 40 mg DAILY IV 07/13/17 09:00 08/08/17 08:59 07/13/17 08:34 Heparin Sodium/ Dextrose 500 ml @ 21.754 mls/ hr adjust per protocol IV 07/12/17 14:15 08/10/17 14:14 07/12/17 14:17 Insulin Aspart (NovoLOG Mix 70/ 30) 16 units PRE BFAST AND DINNER SUBQ 07/12/17 16:30 08/10/17 08:59 07/13/17 06:20 Insulin Aspart (NovoLOG) BEFORE MEALS AND HS SUBQ 07/12/17 16:30 08/10/17 11:29 07/13/17 06:19 Ipratropium [place] (Atrovent) 500 mcg Q4HRT HHN 07/12/17 15:00 07/15/17 14:59 07/13/17 10:36 Levalbuterol HCl (Xopenex) 1.25 mg Q4H PRN HHN Shortness of Breath 1st Line A 07/12/17 15:00 07/13/17 14:59 Lorazepam (Ativan 2mg/ml 1ml) 0.5 mg Q3H PRN IV For Anxiety 07/12/17 15:00 07/19/17 14:59 Losartan Potassium (Cozaar) 100 mg DAILY NG 07/13/17 09:00 08/06/17 12:59 Methylprednisolone Sodium Succinate (Solu-MEDROL) 20 mg EVERY 12 HOURS IVP 07/12/17 21:00 08/10/17 20:59 07/13/17 08:34 Metoprolol Tartrate (Lopressor) 50 mg Q12HR NG 07/12/17 21:00 08/05/17 09:29 07/12/17 21:13 Pantoprazole (Protonix) 40 mg DAILY IVP 07/13/17 09:00 08/05/17 10:59 07/13/17 08:34 Vancomycin HCl (Vanco rx to dose) 1 ea DAILY PRN MISC Per rx protocol 07/12/17 14:30 08/11/17 14:29 Venlafaxine HCl (Effexor) 75 mg THREE TIMES A DAY NG 07/12/17 15:00 08/05/17 14:59 07/13/17 08:32 KRIS ZAPATA Jul 13, 2017 12:43
[2017-07-13 16:00] VITALS: BP 121/66
[2017-07-13 20:00] VITALS: BP 127/55
[2017-07-13] MEDS: Atorvastatin 80mg tab GT SCH (21:09)
[2017-07-14] VITALS: BP 120/65
[2017-07-14 00:54] LABS: BASOPHILS % (AUTO) 0.8 % (0.0-2.0); EOSINOPHILS % (AUTO) 1.3 % (0.0-3.0); LYMPHOCYTES % (AUTO) 11.5 % (20.0-45.0); MEAN CORPUSCULAR HEMOGLOBIN 32.8 PG (27.0-31.0); MEAN CORPUSCULAR VOLUME 106 FL (80-99); MEAN PLATELET VOLUME 7.6 FL (6.5-10.1); MONOCYTES % (AUTO) 8.3 % (1.0-10.0); NEUTROPHILS % (AUTO) 78.1 % (45.0-75.0); PLATELET COUNT 177 K/UL (150-450); RED BLOOD COUNT 2.74 M/UL (4.20-5.40); RED CELL DISTRIBUTION WIDTH 13.3 % (11.6-14.8); WHITE BLOOD COUNT 15.4 K/UL (4.8-10.8)
--- NOTE | 2017-07-14 01:45 | Progress Note ---
DATE: 07/13/2017 CARDIOLOGY PROGRESS NOTE SUBJECTIVE: The patient has started diet. She passed a swallow evaluation. NG tube removed. The patient is having bleeding from her throat episodically. Heparin drip has been discontinued. OBJECTIVE: VITAL SIGNS: Blood pressure 150/83, heart rate 74, respiratory 20, and afebrile. LUNGS: Bilateral breath sounds. HEART: Irregularly irregular rhythm. Normal S1, S2. ABDOMEN: Soft. EXTREMITIES: No edema. ICD pocket site clean and dry. LABORATORY STUDIES: White count 16 and hemoglobin 10. BUN 71 and creatinine 2.0. Digoxin level 1.1. IMPRESSION: 1. Status post respiratory failure. 2. Oropharyngeal bleeding may be due to trauma from ET tube while on anticoagulation. 3. Cardiac defibrillator. 4. Acute on chronic diastolic and systolic congestive heart failure. 5. Paroxysmal atrial fibrillation. 6. Nonsustained ventricular tachycardia. 7. Chronic kidney disease with acute component. PLAN: 1. Hold anticoagulation. 2. Continue beta-blockade. 3. Steroid taper. 4. Maintain diuresis. 5. Discontinue aspirin. 6. Repeat hemoglobin. 7. Titrate anti-failure regimen. Víctor Kuhn M.D. DR: VICTOR MANUEL JOB#: [id number] CC:
[2017-07-14] MEDS: Ipratropium 0.02% Inh Soln 2.5ml UD HHN SCH ×6 (03:20→23:15)
[2017-07-14 04:00] VITALS: BP_SYST 116; BP_SYST 150; BP_DIAS 119; BP_DIAS 65
[2017-07-14 05:59] LABS: ANION GAP 5 mmol/L (5-15); CALCIUM 9.1 MG/DL (8.5-10.1); CARBON DIOXIDE 38 MMOL/L (21-32); CHLORIDE 101 MMOL/L (98-107); CREATININE 2.1 MG/DL (0.55-1.30); GLOMERULAR FILTRATION RATE 28.4 mL/min (>60); POTASSIUM 3.4 MMOL/L (3.5-5.1); SODIUM 144 MMOL/L (136-145)
[2017-07-14] MEDS: NovoLOG Insulin Flexpen SUBQ SCH ×4 (06:44→21:54)
[2017-07-14 07:38] LABS: BASOPHILS % (AUTO) 0.4 % (0.0-2.0); EOSINOPHILS % (AUTO) 0.9 % (0.0-3.0); LYMPHOCYTES % (AUTO) 7.5 % (20.0-45.0); MEAN CORPUSCULAR HGB CONC 32.6 G/DL (32.0-36.0); MEAN CORPUSCULAR VOLUME 105 FL (80-99); MONOCYTES % (AUTO) 8.2 % (1.0-10.0); PLATELET COUNT 158 K/UL (150-450); RED BLOOD COUNT 2.58 M/UL (4.20-5.40); RED CELL DISTRIBUTION WIDTH 12.9 % (11.6-14.8); WHITE BLOOD COUNT 14.7 K/UL (4.8-10.8)
[2017-07-14 08:00] VITALS: BP 109/65
[2017-07-14] MEDS: Metoprolol Tartrate 50mg tab NG SCH ×2 (08:58→21:52)
[2017-07-14] MEDS: Venlafaxine HCl 37.5mg Tab NG SCH ×3 (08:58→17:42)
[2017-07-14] MEDS: Pantoprazole Inj IVP SCH (08:59)
[2017-07-14] MEDS: Digoxin Elixir 0.125mg NG SCH (08:59)
[2017-07-14] MEDS ORDERED: Eliquis 2.5mg tablet ORAL SCH (09:00)
[2017-07-14] MEDS: Losartan 50mg tab NG SCH (09:00)
--- NOTE | 2017-07-14 10:03 | Diagnostic Imaging Report ---
Indication: SOB Technique: One view of the chest Comparison: 07/11/2017 Findings: Interim removal of endotracheal and nasogastric tubes. Interim increased right mid and lower lung opacity, likely reflecting increased infiltrate and pleural fluid. Left-sided pleural effusion appears slightly improved. There is still some atelectasis and consolidation at the left lung base, however. There is a left chest AICD again demonstrated. Evidence of old healed right humeral fracture again demonstrated. Impression: Increasing right basilar opacity, likely combination of increasing pleural fluid and increasing infiltrate Improved left basilar opacity, likely reflecting decreased pleural fluid, with residual parenchymal consolidation. Interim endotracheal and nasogastric extubation This agrees with the preliminary interpretation provided overnight by [facility] teleradiology service.
[2017-07-14 12:00] VITALS: BP 108/63
[2017-07-14 16:00] VITALS: BP 123/71
[2017-07-14] MEDS ORDERED: NS 500ML ONE (16:00)
--- NOTE | 2017-07-14 17:07 | Pulmonology Progress Note ---
Assessment/Plan Assessment/Plan 1. Respiratory failure, extubated 2. Congestive heart failure with pulm edema, severe MR 3. Chronic obstructive pulmonary disease 4. Chronic kidney disease, BETHANY - stable 5. Hypertension. 6. Sepsis, BC+ [employer] 7. Parox A fib, heparin drip Plan: hemoptysis may reflect PE VQ scan, duplex no CTA due to high Cr lasix, steroids CXR worse, WBC still high increase abx, called ID Subjective Respiratory: Reports: hemoptysis Allergies: Coded Allergies: No Known Allergies (Unverified , 05/03/17) Objective Last 24 Hour Vital Signs Date Time Temp Pulse Resp B/P (MAP) Pulse Ox O2 Delivery O2 Flow Rate FiO2 07/14/17 16:00 87 07/14/17 15:30 85 24 98 Nasal Cannula 3.0 28 07/14/17 15:22 91 24 89 Nasal Cannula 3.0 32 07/14/17 12:05 89 28 95 Nasal Cannula 3.0 32 07/14/17 12:00 87 07/14/17 12:00 97.8 91 20 108/63 90 Venturi Mask 55 07/14/17 11:56 90 28 94 Nasal Cannula 3.0 32 07/14/17 09:00 109/65 07/14/17 08:59 96 07/14/17 08:58 96 109/65 07/14/17 08:09 96 30 93 Venturi Mask 4.0 30 07/14/17 08:00 94 07/14/17 08:00 98.2 98 20 109/65 94 Venturi Mask 55 07/14/17 07:45 99 28 92 Venturi Mask 4.0 30 07/14/17 07:45 92 Venturi Mask 4.0 30 07/14/17 07:45 Venturi Mask 4.0 30 07/14/17 04:00 98.4 91 20 116/65 91 Nasal Cannula 4.0 07/14/17 04:00 97 07/14/17 03:22 91 20 91 Nasal Cannula 4.0 36 07/14/17 03:20 36 07/14/17 03:18 91 20 91 Nasal Cannula 4.0 36 07/14/17 00:29 96 18 85 Nasal Cannula 2.5 30 07/14/17 00:00 98.1 91 20 120/65 93 Nasal Cannula 4.0 07/14/17 00:00 105 07/13/17 23:41 30 07/13/17 23:40 96 18 85 Nasal Cannula 2.5 30 07/13/17 21:15 96 127/60 07/13/17 20:00 98.1 96 20 127/55 93 Nasal Cannula 3.0 07/13/17 20:00 92 07/13/17 19:29 Nasal Cannula 2.5 30 07/13/17 19:21 85 18 95 Nasal Cannula 2.5 30 07/13/17 19:18 30 07/13/17 19:14 88 20 94 Nasal Cannula 2.5 30 07/13/17 19:12 94 Nasal Cannula 2.5 30 Intake and Output 07/14/17 07/15/17 19:00 07:00 Intake Total 200 ml Balance 200 ml Intake Oral 200 ml Objective very alert General Appearance: no acute distress HEENT: normocephalic, atraumatic Respiratory/Chest: crackles/rales Cardiovascular: normal rate Laboratory Tests 07/14/17 00:45: White Blood Count 15.4H, Red Blood Count 2.74L, Hemoglobin 9.0L, Hematocrit 29.1L, Mean Corpuscular Volume 106H, Mean Corpuscular Hemoglobin 32.8H, Mean Corpuscular Hemoglobin Concent 31.0L, Red Cell Distribution Width 13.3, Platelet Count 177, Mean Platelet Volume 7.6, Neutrophils (%) (Auto) 78.1H, Lymphocytes (%) (Auto) 11.5L, Monocytes (%) (Auto) 8.3, Eosinophils (%) (Auto) 1.3, Basophils (%) (Auto) 0.8 07/14/17 03:25: White Blood Count 14.7H, Red Blood Count 2.58L, Hemoglobin 8.8L, Hematocrit 27.0L, Mean Corpuscular Volume 105H, Mean Corpuscular Hemoglobin 34.0H, Mean Corpuscular Hemoglobin Concent 32.6, Red Cell Distribution Width 12.9, Platelet Count 158, Mean Platelet Volume 8.0, Neutrophils (%) (Auto) 83.0H, Lymphocytes ( %) (Auto) 7.5L, Monocytes (%) (Auto) 8.2, Eosinophils (%) (Auto) 0.9, Basophils (%) (Auto) 0.4, Sodium Level 144, Potassium Level 3.4L, Chloride Level 101, Carbon Dioxide Level 38H, Anion Gap 5, Blood Urea Nitrogen 79H, Creatinine 2.1H , Estimat Glomerular Filtration Rate 28.4, Glucose Level 127H, Calcium Level 9.1 Current Medications Medications (Trade) Dose Ordered Sig/Luis Miguel Route PRN Reason Start Time Stop Time Status Last Admin Dose Admin Acetaminophen (Tylenol) 650 mg Q4H PRN NG Mild Pain/Temp > 100.5 07/12/17 16:45 08/05/17 08:44 Atorvastatin Calcium (Lipitor) 80 mg BEDTIME GT 07/12/17 21:00 08/05/17 20:59 07/13/17 21:09 Dextrose (Dextrose 50%) STAT PRN IV Hypoglycemia 07/12/17 14:30 08/11/17 14:29 Digoxin (Lanoxin) 0.125 mg DAILY NG 07/13/17 09:00 08/09/17 08:59 07/14/17 08:59 Furosemide (Lasix) 40 mg DAILY IV 07/13/17 09:00 08/08/17 08:59 07/14/17 08:58 Insulin Aspart (NovoLOG Mix 70/ 30) 16 units PRE BFAST AND DINNER SUBQ 07/12/17 16:30 08/10/17 08:59 07/14/17 06:45 Insulin Aspart (NovoLOG) BEFORE MEALS AND HS SUBQ 07/12/17 16:30 08/10/17 11:29 07/14/17 12:29 Ipratropium [place] (Atrovent) 500 mcg Q4HRT HHN 07/12/17 15:00 07/15/17 14:59 07/14/17 15:19 Losartan Potassium (Cozaar) 100 mg DAILY NG 07/13/17 09:00 08/06/17 12:59 Metoprolol Tartrate (Lopressor) 50 mg Q12HR NG 07/12/17 21:00 08/05/17 09:29 07/14/17 08:58 Pantoprazole (Protonix) 40 mg DAILY IVP 07/13/17 09:00 08/05/17 10:59 07/14/17 08:59 Prednisone (predniSONE) 20 mg DAILY ORAL 07/14/17 09:00 08/13/17 08:59 07/14/17 08:58 Vancomycin HCl (Vanco rx to dose) 1 ea DAILY PRN MISC Per rx protocol 07/12/17 14:30 08/11/17 14:29 Venlafaxine HCl (Effexor) 75 mg THREE TIMES A DAY NG 07/12/17 15:00 08/05/17 14:59 07/14/17 12:29 KRIS ZAPATA Jul 14, 2017 17:07
--- NOTE | 2017-07-14 19:00 | Nephrology Progress Note ---
Assessment/Plan Assessment 1) Grace, I am suspecting cardio-renal syndrome, renal FX is improving with diuresis 2) Fluid overload/CHF 3) S/P respiratory failure 4) She has some metabolic alkalosis due to loop diuretics Plan: Will give lasix 80 mg IV Q8 x2 again In presence of GRACE will d/c cozaar, until renal FX is back to baseline Subjective Subjective She is extubated now in the floor, creat is 2.1, she was started on Cozaar, less sob, CXR sis still showing some CHF Objective Objective Last 24 Hour Vital Signs Date Time Temp Pulse Resp B/P (MAP) Pulse Ox O2 Delivery O2 Flow Rate FiO2 07/14/17 16:00 87 07/14/17 16:00 97.7 90 20 123/71 90 Nasal Cannula 4.0 07/14/17 15:30 85 24 98 Nasal Cannula 3.0 28 07/14/17 15:22 91 24 89 Nasal Cannula 3.0 32 07/14/17 12:05 89 28 95 Nasal Cannula 3.0 32 07/14/17 12:00 87 07/14/17 12:00 97.8 91 20 108/63 90 Venturi Mask 55 07/14/17 11:56 90 28 94 Nasal Cannula 3.0 32 07/14/17 09:00 109/65 07/14/17 08:59 96 07/14/17 08:58 96 109/65 07/14/17 08:09 96 30 93 Venturi Mask 4.0 30 07/14/17 08:00 94 07/14/17 08:00 98.2 98 20 109/65 94 Venturi Mask 55 07/14/17 07:45 99 28 92 Venturi Mask 4.0 30 07/14/17 07:45 92 Venturi Mask 4.0 30 07/14/17 07:45 Venturi Mask 4.0 30 07/14/17 04:00 98.4 91 20 116/65 91 Nasal Cannula 4.0 07/14/17 04:00 97 07/14/17 03:22 91 20 91 Nasal Cannula 4.0 36 07/14/17 03:20 36 07/14/17 03:18 91 20 91 Nasal Cannula 4.0 36 07/14/17 00:29 96 18 85 Nasal Cannula 2.5 30 07/14/17 00:00 98.1 91 20 120/65 93 Nasal Cannula 4.0 07/14/17 00:00 105 07/13/17 23:41 30 07/13/17 23:40 96 18 85 Nasal Cannula 2.5 30 07/13/17 21:15 96 127/60 07/13/17 20:00 98.1 96 20 127/55 93 Nasal Cannula 3.0 07/13/17 20:00 92 07/13/17 19:29 Nasal Cannula 2.5 30 07/13/17 19:21 85 18 95 Nasal Cannula 2.5 30 07/13/17 19:18 30 07/13/17 19:14 88 20 94 Nasal Cannula 2.5 30 07/13/17 19:12 94 Nasal Cannula 2.5 30 Intake and Output 07/14/17 07/15/17 19:00 07:00 Intake Total 620 ml Output Total 600 ml Balance 20 ml Intake Oral 620 ml Output Urine Total 600 ml Laboratory Tests 07/14/17 00:45: White Blood Count 15.4H, Red Blood Count 2.74L, Hemoglobin 9.0L, Hematocrit 29.1L, Mean Corpuscular Volume 106H, Mean Corpuscular Hemoglobin 32.8H, Mean Corpuscular Hemoglobin Concent 31.0L, Red Cell Distribution Width 13.3, Platelet Count 177, Mean Platelet Volume 7.6, Neutrophils (%) (Auto) 78.1H, Lymphocytes (%) (Auto) 11.5L, Monocytes (%) (Auto) 8.3, Eosinophils (%) (Auto) 1.3, Basophils (%) (Auto) 0.8 07/14/17 03:25: White Blood Count 14.7H, Red Blood Count 2.58L, Hemoglobin 8.8L, Hematocrit 27.0L, Mean Corpuscular Volume 105H, Mean Corpuscular Hemoglobin 34.0H, Mean Corpuscular Hemoglobin Concent 32.6, Red Cell Distribution Width 12.9, Platelet Count 158, Mean Platelet Volume 8.0, Neutrophils (%) (Auto) 83.0H, Lymphocytes ( %) (Auto) 7.5L, Monocytes (%) (Auto) 8.2, Eosinophils (%) (Auto) 0.9, Basophils (%) (Auto) 0.4, Sodium Level 144, Potassium Level 3.4L, Chloride Level 101, Carbon Dioxide Level 38H, Anion Gap 5, Blood Urea Nitrogen 79H, Creatinine 2.1H , Estimat Glomerular Filtration Rate 28.4, Glucose Level 127H, Calcium Level 9.1 07/14/17 17:35: D-Dimer 4.13H Height (Feet): 6 Height (Inches): 0.00 Weight (Pounds): 219 General Appearance: WD/WN, no apparent distress EENT: PERRL/EOMI Neck: non-tender, supple Cardiovascular: normal rate, regular rhythm Respiratory/Chest: decreased breath sounds, crackles/rales Extremities: moderate edema 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
[2017-07-14 20:00] VITALS: BP 127/65
--- NOTE | 2017-07-14 21:00 | Progress Note ---
DATE: 07/14/2017 CARDIOLOGY PROGRESS NOTE SUBJECTIVE: The patient is having continued hemoptysis. Anticoagulation was discontinued yesterday. PHYSICAL EXAMINATION: VITAL SIGNS: Blood pressure 108/63, pulse 91, respirations 20, and afebrile. Monitor, sinus with paroxysms of atrial fibrillation and demand ventricular pacing as well as left ventricular ectopy, nonsustained. LUNGS: Coarse breath sounds. Few bilateral rales. HEART: Irregularly irregular rhythm. Normal S1 and S2. A 1/6 apical murmur. Defibrillator site is clean and dry. ABDOMEN: Soft. EXTREMITIES: No edema. LABORATORY DATA: White count 14.7 and hemoglobin 8.8. D-dimer is elevated above 4. Sodium 144, potassium 3.4, bicarbonate 38, BUN 79, and creatinine 2.1. IMPRESSION: 1. Acute on chronic systolic and diastolic congestive heart failure, clinically improved. 2. Acute on chronic renal failure, now with plateau. 3. Recurring hemoptysis. 4. Worsening pulmonary infiltrates and leukocytosis raises concern of a worsening pulmonary infection. 5. Moderate protein-calorie malnutrition. 6. Cardiac defibrillator. 7. Paroxysmal atrial and ventricular arrhythmias. PLAN: 1. V/Q scan to evaluate for pulmonary embolus. 2. Continue to hold all anticoagulation. 3. Serial hemoglobin and transfuse if less than 8 g. 4. Maintain antiarrhythmic regimen. 5. Cautious diuresis. 6. Monitor cardiorenal parameters and volume status. 7. Antimicrobials per Infectious Disease client relationship consultant. 8. Condition remains serious with guarded prognosis. Víctor Kuhn M.D. DR: KRYSTAL JOB#: [id number] CC:
--- NOTE | 2017-07-14 21:08 | Infectious Diseases Prog Note ---
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 Decker 4) thank you Subjective Allergies: Coded Allergies: No Known Allergies (Unverified , 05/03/17) Objective Vital Signs Last 24 Hour Vital Signs Date Time Temp Pulse Resp B/P (MAP) Pulse Ox O2 Delivery O2 Flow Rate FiO2 07/14/17 19:27 85 20 96 Nasal Cannula 4.0 36 07/14/17 19:18 Nasal Cannula 4.0 36 07/14/17 19:18 93 Venturi Mask 4.0 30 07/14/17 19:18 87 20 93 Nasal Cannula 4.0 36 07/14/17 16:00 87 07/14/17 16:00 97.7 90 20 123/71 90 Nasal Cannula 4.0 07/14/17 15:30 85 24 98 Nasal Cannula 3.0 28 07/14/17 15:22 91 24 89 Nasal Cannula 3.0 32 07/14/17 12:05 89 28 95 Nasal Cannula 3.0 32 07/14/17 12:00 87 07/14/17 12:00 97.8 91 20 108/63 90 Venturi Mask 55 07/14/17 11:56 90 28 94 Nasal Cannula 3.0 32 07/14/17 09:00 109/65 07/14/17 08:59 96 07/14/17 08:58 96 109/65 07/14/17 08:09 96 30 93 Venturi Mask 4.0 30 07/14/17 08:00 94 07/14/17 08:00 98.2 98 20 109/65 94 Venturi Mask 55 07/14/17 07:45 99 28 92 Venturi Mask 4.0 30 07/14/17 07:45 92 Venturi Mask 4.0 30 07/14/17 07:45 Venturi Mask 4.0 30 07/14/17 04:00 98.4 91 20 116/65 91 Nasal Cannula 4.0 07/14/17 04:00 97 07/14/17 03:22 91 20 91 Nasal Cannula 4.0 36 07/14/17 03:20 36 07/14/17 03:18 91 20 91 Nasal Cannula 4.0 36 07/14/17 00:29 96 18 85 Nasal Cannula 2.5 30 07/14/17 00:00 98.1 91 20 120/65 93 Nasal Cannula 4.0 07/14/17 00:00 105 07/13/17 23:41 30 07/13/17 23:40 96 18 85 Nasal Cannula 2.5 30 07/13/17 21:15 96 127/60 Height (Feet): 6 Height (Inches): 0.00 Weight (Pounds): 219 Laboratory Tests Test 07/14/17 00:45 07/14/17 03:25 07/14/17 17:35 White Blood Count 15.4 K/UL (4.8-10.8) H 14.7 K/UL (4.8-10.8) H Red Blood Count 2.74 M/UL (4.20-5.40) L 2.58 M/UL (4.20-5.40) L Hemoglobin 9.0 G/DL (12.0-16.0) L 8.8 G/DL (12.0-16.0) L Hematocrit 29.1 % (37.0-47.0) L 27.0 % (37.0-47.0) L Mean Corpuscular Volume 106 FL (80-99) H 105 FL (80-99) H Mean Corpuscular Hemoglobin 32.8 PG (27.0-31.0) H 34.0 PG (27.0-31.0) H Mean Corpuscular Hemoglobin Concent 31.0 G/DL (32.0-36.0) L 32.6 G/DL (32.0-36.0) Red Cell Distribution Width 13.3 % (11.6-14.8) 12.9 % (11.6-14.8) Platelet Count 177 K/UL (150-450) 158 K/UL (150-450) Mean Platelet Volume 7.6 FL (6.5-10.1) 8.0 FL (6.5-10.1) Neutrophils (%) (Auto) 78.1 % (45.0-75.0) H 83.0 % (45.0-75.0) H Lymphocytes (%) (Auto) 11.5 % (20.0-45.0) L 7.5 % (20.0-45.0) L Monocytes (%) (Auto) 8.3 % (1.0-10.0) 8.2 % (1.0-10.0) Eosinophils (%) (Auto) 1.3 % (0.0-3.0) 0.9 % (0.0-3.0) Basophils (%) (Auto) 0.8 % (0.0-2.0) 0.4 % (0.0-2.0) Sodium Level 144 MMOL/L (136-145) Potassium Level 3.4 MMOL/L (3.5-5.1) L Chloride Level 101 MMOL/L (98-107) Carbon Dioxide Level 38 MMOL/L (21-32) H Anion Gap 5 mmol/L (5-15) Blood Urea Nitrogen 79 mg/dL (7-18) H Creatinine 2.1 MG/DL (0.55-1.30) H Estimat Glomerular Filtration Rate 28.4 mL/min (>60) Glucose Level 127 MG/DL (74-106) H Calcium Level 9.1 MG/DL (8.5-10.1) D-Dimer 4.13 mg/L FEU (0.00-0.49) H Current Medications Medications (Trade) Dose Ordered Sig/Luis Miguel Route PRN Reason Start Time Stop Time Status Last Admin Dose Admin Acetaminophen (Tylenol) 650 mg Q4H PRN NG Mild Pain/Temp > 100.5 07/12/17 16:45 08/05/17 08:44 Atorvastatin Calcium (Lipitor) 80 mg BEDTIME GT 07/12/17 21:00 08/05/17 20:59 07/13/17 21:09 Cefepime HCl 1 gm/ Dextrose 50 ml @ 100 mls/hr DAILY@1800 IVPB 07/14/17 18:00 07/21/17 17:59 07/14/17 17:44 Dextrose (Dextrose 50%) STAT PRN IV Hypoglycemia 07/12/17 14:30 08/11/17 14:29 Digoxin (Lanoxin) 0.125 mg DAILY NG 07/13/17 09:00 08/09/17 08:59 07/14/17 08:59 Furosemide (Lasix) 80 mg Q8HR IV 07/14/17 22:00 07/15/17 06:01 Insulin Aspart (NovoLOG Mix 70/ 30) 16 units PRE BFAST AND DINNER SUBQ 07/12/17 16:30 08/10/17 08:59 07/14/17 17:43 Insulin Aspart (NovoLOG) BEFORE MEALS AND HS SUBQ 07/12/17 16:30 08/10/17 11:29 07/14/17 17:43 Ipratropium [place] (Atrovent) 500 mcg Q4HRT HHN 07/12/17 15:00 07/15/17 14:59 07/14/17 19:18 Metoprolol Tartrate (Lopressor) 50 mg Q12HR NG 07/12/17 21:00 08/05/17 09:29 07/14/17 08:58 Metronidazole 100 ml @ 100 mls/hr Q8HR@0200,1000,1800 IVPB 07/14/17 18:00 07/21/17 17:59 07/14/17 17:44 Pantoprazole (Protonix) 40 mg DAILY IVP 07/13/17 09:00 08/05/17 10:59 07/14/17 08:59 Potassium Chloride (K-Dur) 40 meq Q8HR ORAL 07/14/17 22:00 07/15/17 06:01 Prednisone (predniSONE) 20 mg DAILY ORAL 07/14/17 09:00 08/13/17 08:59 07/14/17 08:58 Vancomycin HCl (Vanco rx to dose) 1 ea DAILY PRN MISC Per rx protocol 07/12/17 14:30 08/11/17 14:29 Venlafaxine HCl (Effexor) 75 mg THREE TIMES A DAY NG 07/12/17 15:00 08/05/17 14:59 07/14/17 17:42 RICA LEACH Jul 14, 2017 21:08
[2017-07-14] MEDS: Atorvastatin 80mg tab GT SCH (21:51)
[2017-07-15] VITALS: BP 127/58
[2017-07-15] MEDS: Ipratropium 0.02% Inh Soln 2.5ml UD HHN SCH ×4 (03:21→23:00)
[2017-07-15 04:00] VITALS: BP 136/76
[2017-07-15 05:12] LABS: MEAN CORPUSCULAR HEMOGLOBIN 34.2 PG (27.0-31.0); MEAN CORPUSCULAR HGB CONC 32.5 G/DL (32.0-36.0); MEAN CORPUSCULAR VOLUME 105 FL (80-99); MEAN PLATELET VOLUME 8.8 FL (6.5-10.1); PLATELET COUNT 143 K/UL (150-450); RED BLOOD COUNT 2.13 M/UL (4.20-5.40); RED CELL DISTRIBUTION WIDTH 13.2 % (11.6-14.8); WHITE BLOOD COUNT 10.9 K/UL (4.8-10.8)
[2017-07-15 05:45] LABS: ALANINE AMINOTRANSFERASE 19 U/L (12-78); ALBUMIN/GLOBULIN RATIO 0.8 (1.0-2.7); ANION GAP 3 mmol/L (5-15); ASPARTATE AMINO TRANSFERASE 19 U/L (15-37); CALCIUM 8.7 MG/DL (8.5-10.1); CARBON DIOXIDE 38 MMOL/L (21-32); CHLORIDE 102 MMOL/L (98-107); CREATININE 1.9 MG/DL (0.55-1.30); GLOMERULAR FILTRATION RATE 31.8 mL/min (>60); POTASSIUM 3.8 MMOL/L (3.5-5.1); SODIUM 143 MMOL/L (136-145); TOTAL PROTEIN 5.5 G/DL (6.4-8.2)
[2017-07-15] MEDS: NovoLOG Insulin Flexpen SUBQ SCH ×4 (06:30→21:00)
[2017-07-15 08:00] VITALS: BP 122/67
[2017-07-15] MEDS: Pantoprazole Inj IVP SCH (08:56)
[2017-07-15] MEDS: Digoxin Elixir 0.125mg NG SCH (08:56)
[2017-07-15] MEDS: Metoprolol Tartrate 50mg tab NG SCH ×2 (08:56→21:11)
[2017-07-15] MEDS: Venlafaxine HCl 37.5mg Tab NG SCH ×3 (08:56→17:52)
[2017-07-15 12:00] VITALS: BP 129/82
--- NOTE | 2017-07-15 15:24 | Pulmonology Progress Note ---
Assessment/Plan Assessment/Plan 1. Respiratory failure, extubated 2. Congestive heart failure with pulm edema, severe MR 3. Chronic obstructive pulmonary disease 4. Chronic kidney disease, BETHANY - stable 5. Hypertension. 6. Sepsis, BC+ [employer] 7. Parox A fib, heparin drip Plan: hemoptysis may reflect PE, D dimer + VQ scan report pdg, called radiology duplex pdg no CTA due to high Cr lasix, steroids abx repeat CXR, labs Subjective Respiratory: Reports: hemoptysis Allergies: Coded Allergies: No Known Allergies (Unverified , 05/03/17) Objective Last 24 Hour Vital Signs Date Time Temp Pulse Resp B/P (MAP) Pulse Ox O2 Delivery O2 Flow Rate FiO2 07/15/17 12:00 73 24 129/82 94 Nasal Cannula 4.0 07/15/17 11:08 Nasal Cannula 4.0 36 07/15/17 11:08 Nasal Cannula 4.0 36 07/15/17 08:56 94 122/67 07/15/17 08:56 94 07/15/17 08:00 85 07/15/17 08:00 98.8 94 18 122/67 93 Nasal Cannula 4.0 07/15/17 07:33 90 20 95 Nasal Cannula 4.0 36 07/15/17 07:23 87 18 91 Nasal Cannula 4.0 36 07/15/17 07:23 Nasal Cannula 4.0 36 07/15/17 07:23 91 Nasal Cannula 4.0 36 07/15/17 04:00 98.1 78 24 136/76 93 Nasal Cannula 4.0 07/15/17 04:00 75 07/15/17 03:29 75 20 97 Nasal Cannula 4.0 36 07/15/17 03:21 74 20 92 Nasal Cannula 4.0 36 07/15/17 00:00 98.0 77 20 127/58 92 Nasal Cannula 4.0 07/15/17 00:00 74 07/14/17 23:23 75 18 98 Nasal Cannula 4.0 36 07/14/17 23:15 78 20 92 Nasal Cannula 4.0 36 07/14/17 21:52 85 123/71 07/14/17 20:00 98.2 85 20 127/65 92 Nasal Cannula 4.0 07/14/17 20:00 82 07/14/17 19:27 85 20 96 Nasal Cannula 4.0 36 07/14/17 19:18 Nasal Cannula 4.0 36 07/14/17 19:18 93 Venturi Mask 4.0 30 07/14/17 19:18 87 20 93 Nasal Cannula 4.0 36 07/14/17 16:00 87 07/14/17 16:00 97.7 90 20 123/71 90 Nasal Cannula 4.0 07/14/17 15:30 85 24 98 Nasal Cannula 3.0 28 07/14/17 15:22 91 24 89 Nasal Cannula 3.0 32 Intake and Output 07/15/17 07/16/17 19:00 07:00 # Bowel Movements 1 Objective very alert HEENT: anicteric Respiratory/Chest: decreased breath sounds Cardiovascular: normal rate Microbiology Date/Time Source Procedure Growth Status 07/14/17 22:30 Sputum Gram Stain - Final Resulted 07/14/17 22:30 Sputum Sputum Culture Pending Resulted Laboratory Tests 07/14/17 17:35: D-Dimer 4.13H 07/15/17 04:00: White Blood Count 10.9H, Red Blood Count 2.13L, Hemoglobin 7.3L, Hematocrit 22.4L, Mean Corpuscular Volume 105H, Mean Corpuscular Hemoglobin 34.2H, Mean Corpuscular Hemoglobin Concent 32.5, Red Cell Distribution Width 13.2, Platelet Count 143L, Mean Platelet Volume 8.8, Neutrophils (%) (Auto) , Lymphocytes (%) ( Auto) , Monocytes (%) (Auto) , Eosinophils (%) (Auto) , Basophils (%) (Auto) , Sodium Level 143, Potassium Level 3.8, Chloride Level 102, Carbon Dioxide Level 38H, Anion Gap 3L, Blood Urea Nitrogen 81H, Creatinine 1.9H, Estimat Glomerular Filtration Rate 31.8, Glucose Level 118H, Calcium Level 8.7, Total Bilirubin 0.5 , Aspartate Amino Transf (AST/SGOT) 19, Alanine Aminotransferase (ALT/SGPT) 19, Alkaline Phosphatase 45L, Total Protein 5.5L, Albumin 2.5L, Globulin 3.0, Albumin/Globulin Ratio 0.8L Current Medications Medications (Trade) Dose Ordered Sig/Luis Miguel Route PRN Reason Start Time Stop Time Status Last Admin Dose Admin Acetaminophen (Tylenol) 650 mg Q4H PRN NG Mild Pain/Temp > 100.5 07/12/17 16:45 08/05/17 08:44 Atorvastatin Calcium (Lipitor) 80 mg BEDTIME GT 07/12/17 21:00 08/05/17 20:59 07/14/17 21:51 Cefepime HCl 1 gm/ Dextrose 50 ml @ 100 mls/hr DAILY@1800 IVPB 07/14/17 18:00 07/21/17 17:59 07/14/17 17:44 Dextrose (Dextrose 50%) STAT PRN IV Hypoglycemia 07/12/17 14:30 08/11/17 14:29 Digoxin (Lanoxin) 0.125 mg DAILY NG 07/13/17 09:00 08/09/17 08:59 07/15/17 08:56 Insulin Aspart (NovoLOG Mix 70/ 30) 16 units PRE BFAST AND DINNER SUBQ 07/12/17 16:30 08/10/17 08:59 07/15/17 06:45 Insulin Aspart (NovoLOG) BEFORE MEALS AND HS SUBQ 07/12/17 16:30 08/10/17 11:29 07/15/17 13:21 Metoprolol Tartrate (Lopressor) 50 mg Q12HR NG 07/12/17 21:00 08/05/17 09:29 07/15/17 08:56 Metronidazole 100 ml @ 100 mls/hr Q8HR@0200,1000,1800 IVPB 07/14/17 18:00 07/21/17 17:59 07/15/17 10:29 Pantoprazole (Protonix) 40 mg DAILY IVP 07/13/17 09:00 08/05/17 10:59 07/15/17 08:56 Prednisone (predniSONE) 20 mg DAILY ORAL 07/14/17 09:00 08/13/17 08:59 07/15/17 08:56 Vancomycin HCl (Vanco rx to dose) 1 ea DAILY PRN MISC Per rx protocol 07/12/17 14:30 08/11/17 14:29 Venlafaxine HCl (Effexor) 75 mg THREE TIMES A DAY NG 07/12/17 15:00 08/05/17 14:59 07/15/17 13:18 KRIS ZAPATA Jul 15, 2017 15:24
--- NOTE | 2017-07-15 15:49 | Diagnostic Imaging Report ---
Indication: Shortness of breath Technique: Ventilation/perfusion scan was performed. Ventilation was performed with 40 mCi of technetium 99m DTPA. Wash-in, equilibrium, and washout images obtained. Perfusion was performed with intravenous injection of 5 mCi of technetium 99 M-MAA. Lungs displayed in PA, AP, both Lateral, and both oblique projections. Findings: Bilateral matched perfusion and ventilation defects involving the lower lungs. These correspond to the areas of radiographic abnormality on concurrent chest ray graft. Impression: Intermediate probability for pulmonary embolism.
[2017-07-15 16:00] VITALS: BP 133/73
--- NOTE | 2017-07-15 16:31 | Nephrology Progress Note ---
Assessment/Plan Assessment 1) Grace, I am suspecting cardio-renal syndrome, renal FX is improving with diuresis 2) Fluid overload/CHF 3) S/P respiratory failure 4) She has some metabolic alkalosis due to loop diuretics Plan: Will give lasix 80 mg IV Q8 [id number] In presence of GRACE will continue off cozaar, until renal FX is back to baseline Replete K Check labs in AM Subjective Subjective She is feeling better, creat is down to 1.9, HGB is 7.3, receiving blood transfusion Objective Objective Last 24 Hour Vital Signs Date Time Temp Pulse Resp B/P (MAP) Pulse Ox O2 Delivery O2 Flow Rate FiO2 07/15/17 15:00 Nasal Cannula 4.0 36 07/15/17 15:00 Nasal Cannula 4.0 36 07/15/17 12:00 73 24 129/82 94 Nasal Cannula 4.0 07/15/17 11:08 Nasal Cannula 4.0 36 07/15/17 11:08 Nasal Cannula 4.0 36 07/15/17 08:56 94 122/67 07/15/17 08:56 94 07/15/17 08:00 85 07/15/17 08:00 98.8 94 18 122/67 93 Nasal Cannula 4.0 07/15/17 07:33 90 20 95 Nasal Cannula 4.0 36 07/15/17 07:23 87 18 91 Nasal Cannula 4.0 36 07/15/17 07:23 Nasal Cannula 4.0 36 07/15/17 07:23 91 Nasal Cannula 4.0 36 07/15/17 04:00 98.1 78 24 136/76 93 Nasal Cannula 4.0 07/15/17 04:00 75 07/15/17 03:29 75 20 97 Nasal Cannula 4.0 36 07/15/17 03:21 74 20 92 Nasal Cannula 4.0 36 07/15/17 00:00 98.0 77 20 127/58 92 Nasal Cannula 4.0 07/15/17 00:00 74 07/14/17 23:23 75 18 98 Nasal Cannula 4.0 36 07/14/17 23:15 78 20 92 Nasal Cannula 4.0 36 07/14/17 21:52 85 123/71 07/14/17 20:00 98.2 85 20 127/65 92 Nasal Cannula 4.0 12/7/17 20:00 82 07/14/17 19:27 85 20 96 Nasal Cannula 4.0 36 07/14/17 19:18 Nasal Cannula 4.0 36 07/14/17 19:18 93 Venturi Mask 4.0 30 07/14/17 19:18 87 20 93 Nasal Cannula 4.0 36 Intake and Output 07/15/17 07/16/17 19:00 07:00 # Bowel Movements 1 Laboratory Tests 07/14/17 17:35: D-Dimer 4.13H 07/15/17 04:00: White Blood Count 10.9H, Red Blood Count 2.13L, Hemoglobin 7.3L, Hematocrit 22.4L, Mean Corpuscular Volume 105H, Mean Corpuscular Hemoglobin 34.2H, Mean Corpuscular Hemoglobin Concent 32.5, Red Cell Distribution Width 13.2, Platelet Count 143L, Mean Platelet Volume 8.8, Neutrophils (%) (Auto) , Lymphocytes (%) ( Auto) , Monocytes (%) (Auto) , Eosinophils (%) (Auto) , Basophils (%) (Auto) , Sodium Level 143, Potassium Level 3.8, Chloride Level 102, Carbon Dioxide Level 38H, Anion Gap 3L, Blood Urea Nitrogen 81H, Creatinine 1.9H, Estimat Glomerular Filtration Rate 31.8, Glucose Level 118H, Calcium Level 8.7, Total Bilirubin 0.5 , Aspartate Amino Transf (AST/SGOT) 19, Alanine Aminotransferase (ALT/SGPT) 19, Alkaline Phosphatase 45L, Total Protein 5.5L, Albumin 2.5L, Globulin 3.0, Albumin/Globulin Ratio 0.8L Height (Feet): 6 Height (Inches): 0.00 Weight (Pounds): 218 General Appearance: WD/WN, no apparent distress EENT: PERRL/EOMI Neck: non-tender, normal alignment Cardiovascular: regular rhythm, JVD - High Respiratory/Chest: crackles/rales Extremities: normal range of motion, non-tender Neurologic: finish photographer II-XII grossly normal, no motor/sensory deficits CANDICE DUGGAN Jul 15, 2017 16:31
--- NOTE | 2017-07-15 16:57 | Infectious Diseases Prog Note ---
Assessment/Plan Assessment/Plan Full consult dictated: A) 1) pna, sepsis, leukocytosis, milagros, respiratory failure, chest x-ray worse 2) channel man blood cultures likely contaminant 3) allergies - negative 4) pmh noted P) 1) vancomycin, flagyl and cefepime 2) check sc, labs and chest x-ray 3) will f/u Subjective Respiratory: Reports: shortness of breath, other - less hemoptysis, Denies: productive cough Cardiovascular: Denies: chest pain Gastrointestinal/Abdominal: Denies: nausea, vomiting, diarrhea Allergies: Coded Allergies: No Known Allergies (Unverified , 05/03/17) Objective Vital Signs Last 24 Hour Vital Signs Date Time Temp Pulse Resp B/P (MAP) Pulse Ox O2 Delivery O2 Flow Rate FiO2 07/15/17 15:00 Nasal Cannula 4.0 36 07/15/17 15:00 Nasal Cannula 4.0 36 07/15/17 12:00 73 24 129/82 94 Nasal Cannula 4.0 07/15/17 11:08 Nasal Cannula 4.0 36 07/15/17 11:08 Nasal Cannula 4.0 36 07/15/17 08:56 94 122/67 07/15/17 08:56 94 07/15/17 08:00 85 07/15/17 08:00 98.8 94 18 122/67 93 Nasal Cannula 4.0 07/15/17 07:33 90 20 95 Nasal Cannula 4.0 36 07/15/17 07:23 87 18 91 Nasal Cannula 4.0 36 07/15/17 07:23 Nasal Cannula 4.0 36 07/15/17 07:23 91 Nasal Cannula 4.0 36 07/15/17 04:00 98.1 78 24 136/76 93 Nasal Cannula 4.0 07/15/17 04:00 75 07/15/17 03:29 75 20 97 Nasal Cannula 4.0 36 07/15/17 03:21 74 20 92 Nasal Cannula 4.0 36 07/15/17 00:00 98.0 77 20 127/58 92 Nasal Cannula 4.0 07/15/17 00:00 74 07/14/17 23:23 75 18 98 Nasal Cannula 4.0 36 07/14/17 23:15 78 20 92 Nasal Cannula 4.0 36 07/14/17 21:52 85 123/71 07/14/17 20:00 98.2 85 20 127/65 92 Nasal Cannula 4.0 07/14/17 20:00 82 07/14/17 19:27 85 20 96 Nasal Cannula 4.0 36 07/14/17 19:18 Nasal Cannula 4.0 36 07/14/17 19:18 93 Venturi Mask 4.0 30 07/14/17 19:18 87 20 93 Nasal Cannula 4.0 36 Height (Feet): 6 Height (Inches): 0.00 Weight (Pounds): 218 HEENT: normocephalic, atraumatic, anicteric, mucous membranes moist Respiratory/Chest: crackles/rales, rhonchi - bilaterally Cardiovascular: normal rate, regular rhythm Abdomen: normal bowel sounds, soft, non tender, no organomegaly, non distended Microbiology Date/Time Source Procedure Growth Status 07/14/17 22:30 Sputum Gram Stain - Final Resulted 07/14/17 22:30 Sputum Sputum Culture Pending Resulted Laboratory Tests Test 07/14/17 17:35 07/15/17 04:00 D-Dimer 4.13 mg/L FEU (0.00-0.49) H White Blood Count 10.9 K/UL (4.8-10.8) H Red Blood Count 2.13 M/UL (4.20-5.40) L Hemoglobin 7.3 G/DL (12.0-16.0) L Hematocrit 22.4 % (37.0-47.0) L Mean Corpuscular Volume 105 FL (80-99) H Mean Corpuscular Hemoglobin 34.2 PG (27.0-31.0) H Mean Corpuscular Hemoglobin Concent 32.5 G/DL (32.0-36.0) Red Cell Distribution Width 13.2 % (11.6-14.8) Platelet Count 143 K/UL (150-450) L Mean Platelet Volume 8.8 FL (6.5-10.1) Neutrophils (%) (Auto) % (45.0-75.0) Lymphocytes (%) (Auto) % (20.0-45.0) Monocytes (%) (Auto) % (1.0-10.0) Eosinophils (%) (Auto) % (0.0-3.0) Basophils (%) (Auto) % (0.0-2.0) Sodium Level 143 MMOL/L (136-145) Potassium Level 3.8 MMOL/L (3.5-5.1) Chloride Level 102 MMOL/L (98-107) Carbon Dioxide Level 38 MMOL/L (21-32) H Anion Gap 3 mmol/L (5-15) L Blood Urea Nitrogen 81 mg/dL (7-18) H Creatinine 1.9 MG/DL (0.55-1.30) H Estimat Glomerular Filtration Rate 31.8 mL/min (>60) Glucose Level 118 MG/DL (74-106) H Calcium Level 8.7 MG/DL (8.5-10.1) Total Bilirubin 0.5 MG/DL (0.2-1.0) Aspartate Amino Transf (AST/SGOT) 19 U/L (15-37) Alanine Aminotransferase (ALT/SGPT) 19 U/L (12-78) Alkaline Phosphatase 45 U/L (46-116) L Total Protein 5.5 G/DL (6.4-8.2) L Albumin 2.5 G/DL (3.4-5.0) L Globulin 3.0 g/dL Albumin/Globulin Ratio 0.8 (1.0-2.7) L Current Medications Medications (Trade) Dose Ordered Sig/Luis Miguel Route PRN Reason Start Time Stop Time Status Last Admin Dose Admin Acetaminophen (Tylenol) 650 mg Q4H PRN NG Mild Pain/Temp > 100.5 07/12/17 16:45 08/05/17 08:44 Atorvastatin Calcium (Lipitor) 80 mg BEDTIME GT 07/12/17 21:00 08/05/17 20:59 07/14/17 21:51 Cefepime HCl 1 gm/ Dextrose 50 ml @ 100 mls/hr DAILY@1800 IVPB 07/14/17 18:00 07/21/17 17:59 07/14/17 17:44 Dextrose (Dextrose 50%) STAT PRN IV Hypoglycemia 07/12/17 14:30 08/11/17 14:29 Digoxin (Lanoxin) 0.125 mg DAILY NG 07/13/17 09:00 08/09/17 08:59 07/15/17 08:56 Furosemide (Lasix) 80 mg Q8HR IV 07/15/17 16:30 07/16/17 06:01 UNV Insulin Aspart (NovoLOG Mix 70/ 30) 16 units PRE BFAST AND DINNER SUBQ 07/12/17 16:30 08/10/17 08:59 07/15/17 06:45 Insulin Aspart (NovoLOG) BEFORE MEALS AND HS SUBQ 07/12/17 16:30 08/10/17 11:29 07/15/17 13:21 Lansoprazole (Prevacid) 30 mg DAILY NG 07/16/17 09:00 08/15/17 08:59 Metoprolol Tartrate (Lopressor) 50 mg Q12HR NG 07/12/17 21:00 08/05/17 09:29 07/15/17 08:56 Metronidazole 100 ml @ 100 mls/hr Q8HR@0200,1000,1800 IVPB 07/14/17 18:00 07/15/17 23:59 07/15/17 10:29 Metronidazole (Flagyl) 500 mg Q8HR NG 07/16/17 06:00 07/23/17 05:59 Potassium Chloride (K-Dur) 40 meq Q8HR ORAL 07/15/17 16:30 07/15/17 22:01 UNV Prednisone (predniSONE) 20 mg DAILY ORAL 07/14/17 09:00 08/13/17 08:59 07/15/17 08:56 Venlafaxine HCl (Effexor) 75 mg THREE TIMES A DAY NG 07/12/17 15:00 08/05/17 14:59 07/15/17 13:18 RICA LEACH Jul 15, 2017 16:57
--- NOTE | 2017-07-15 18:12 | Diagnostic Imaging Report ---
Indication: Shortness of breath Technique: XRAY CHEST 1 V Comparison: 07/14/17 2 Findings: The heart is enlarged but stable in size. Left AICD unchanged in position. Is interval improved aeration of the right midlung compared to the prior exam. There are persistent hazy bilateral airspace opacities with blunting of the costophrenic sulci likely related to pleural effusions. There is no definite pneumothorax. Osseous structures are stable. Impression: Slight improved aeration of the right mid and lower lung the prior exam. Additional findings unchanged.
[2017-07-15] MEDS ORDERED: Vancomycin 1gm in D5W 275ml IVPB ONE (19:30)
[2017-07-15 20:00] VITALS: BP_SYST 108; BP_SYST 133; BP_DIAS 60
[2017-07-15] MEDS: Atorvastatin 80mg tab GT SCH (21:10)
[2017-07-15] MEDS: Enoxaparin 100mg Inj SUBQ SCH (22:46)
[2017-07-16] VITALS (7 sets, daily range): BP systolic 135–154; BP diastolic 68–92
[2017-07-16] MEDS ORDERED: Ipratropium 0.02% Inh Soln 2.5ml UD HHN SCH (01:00)
--- NOTE | 2017-07-16 01:30 | Consultation ---
DATE OF CONSULTATION: 07/15/2017 INFECTIOUS DISEASES CONSULTATION CONSULTING PHYSICIAN: Ally Emanuel M.D. ATTENDING PHYSICIAN: Jerel Decker M.D. REASON FOR CONSULTATION: Sepsis, pneumonia, possible bacteremia. CHIEF COMPLAINT: The patient's chief complaint coming into the hospital is pneumonia, chronic obstructive pulmonary disease, shortness breath, and respiratory failure. HISTORY OF PRESENT ILLNESS: This is a very pleasant 71-year-old female, who comes into [facility] with shortness of breath. The patient required intubation, now is extubated. The patient was noted to have leukocytosis, fevers, and likely was septic. The patient looks like she had pneumonia clinically and radiographically. The patient had positive blood cultures with coag-negative Staph, which is likely contaminant. The patient had received chest x-ray. An Infectious Diseases consultation is requested. The patient is started on vancomycin, cefepime, and Flagyl. Case was discussed with Dr. Decker. Sputum culture is pending. MAR was noted. Orders were noted. Notes were reviewed. PAST MEDICAL HISTORY: The patient's past medical history includes history of the following. The patient has a past medical history of respiratory failure, chronic obstructive pulmonary disease, history of chronic kidney disease, acute kidney injury, hypertension, history of paroxysmal atrial fibrillation requiring heparin drip, history of congestive heart failure, coronary artery disease, hypertension, she has a defibrillator for congestive heart failure, and she has anemia. Also, anxiety disorder in addition to depression. Questionable history of hyperlipidemia also. ALLERGIES: No known drug allergies. No antibiotic allergies. MEDICATIONS: Upon reviewing the MAR, she is on the following medications. She is currently on Prevacid, Flagyl, vancomycin, Lasix, K-Dur, cefepime, vancomycin per pharmacy dosing, and prednisone. She was on intravenous steroids. She is on Lipitor, Lopressor, Tylenol, NovoLog insulin, and Effexor. Digoxin or Lanoxin, and prednisone. Outside medications noted and reconciliated. FAMILY HISTORY: Noncontributory. Negative for exposure to tuberculosis or cancer. SOCIAL HISTORY: Negative for smoking, alcohol, or drug abuse. REVIEW OF SYSTEMS: CONSTITUTIONAL: Denies weakness, fatigue. She has a Beasley. She did have hemoptysis, but that is decreased. HEAD AND NECK: No head pain or neck pain. CARDIAC: No chest pain. GASTROINTESTINAL: No nausea, vomiting, or diarrhea. : She has a Beasley. PULMONARY: Less congestion and short of breath. Still has a cough and again less hemoptysis. SKIN: No rash or itching. EXTREMITIES: No extremity pain. NEUROLOGICAL: No seizures. PHYSICAL EXAMINATION: VITAL SIGNS: Temperature is 98.8, pulse rate 94, respiratory rate 18, blood pressure 122/67, and saturation 93% to 95% on FiO2 of 4 liters. GENERAL: Alert, responsive, no acute distress. She says she feels better today. No significant shortness of breath noted. HEAD AND NECK: Oral exam, no thrush. Eye exam, no icterus. Normocephalic. No facial droop. No neck stiffness. Neck is supple. HEART: Regular. No gallop or murmur. Occasionally irregular, possible gallop. ABDOMEN: Soft. Positive bowel sounds. Nontender. LUNGS: Bilateral rhonchi and rales. SKIN: No rash or dermatitis. MUSCULOSKELETAL: No effusion. Legs are without cellulitis. PERIPHERAL VASCULAR: No cyanosis. GENITOURINARY: She has a Beasley. Urine is clear. LINES: Line sites without phlebitis. NEUROLOGIC: Generalized weakness and responsive. LABORATORY AND DIAGNOSTIC DATA: Laboratory data as follows: White count 10.9, hemoglobin 7.3. The patient's creatinine is 1.9, which is improved. White count has been as high as 16.2. The patient's chest x-ray imaging study shows following, shows increasing right basilar opacity with increased pleural effusion, increased infiltrate, with improved basilar opacity with decrease in pleural fluid. Previous x-rays were reviewed also. Cultures, sputum culture is pending, blood culture 1/4 Coagulase-negative Staph. Of note, vital signs with T-max was 99.9 on admission and her pulse rate has been as high as 105 over the last several days, looks like. ASSESSMENT AND PLAN: 1. The patient likely has sepsis with fevers and leukocytosis. She has been on steroids. She has chronic obstructive pulmonary disease and later came in with community-acquired pneumonia, but now she could have worsening aspiration and healthcare-acquired pneumonia. Continue vancomycin, cefepime, and Flagyl. Check sputum culture. Followup labs and chest x-ray. Continue pulmonary treatment. Watch white cell count. Watch creatinine closely. 2. Acute kidney injury, chronic renal failure, elevated creatinine. 3. Anemia. 4. Chronic obstructive pulmonary disease. 5. Hypertension. 6. Congestive heart failure. 7. Coronary artery disease. 8. Depression. 9. Anxiety. 10. Defibrillator. 11. Atrial fibrillation. 12. Rapid ventricular response. 13. Chronic obstructive pulmonary disease. 14. Chronic kidney disease. 15. Congestive heart failure. 16. Past medical history as noted. 17. Social history is negative. 18. Family doctor is noncontributory. 19. MAR was noted. 20. Case was discussed with the RN. 21. Notes and records were reviewed and noted. 22. Allergies are negative. 23. Coag-negative Staph blood cultures, likely contaminant. Ally Emanuel M.D. DR: KARI JOB#: [id number] CC:
[2017-07-16] MEDS: Ipratropium 0.02% Inh Soln 2.5ml UD HHN SCH ×6 (02:50→23:22)
[2017-07-16] MEDS: metroNIDAZOLE 500mg tab NG SCH ×3 (06:09→21:18)
[2017-07-16] MEDS: NovoLOG Insulin Flexpen SUBQ SCH ×4 (06:13→21:09)
[2017-07-16 09:04] LABS: ALANINE AMINOTRANSFERASE 20 U/L (12-78); ALBUMIN/GLOBULIN RATIO 0.8 (1.0-2.7); ANION GAP 2 mmol/L (5-15); ASPARTATE AMINO TRANSFERASE 27 U/L (15-37); CALCIUM 8.6 MG/DL (8.5-10.1); CARBON DIOXIDE 37 MMOL/L (21-32); CHLORIDE 107 MMOL/L (98-107); CREATININE 1.4 MG/DL (0.55-1.30); GLOMERULAR FILTRATION RATE 45.1 mL/min (>60); POTASSIUM 4.2 MMOL/L (3.5-5.1); SODIUM 146 MMOL/L (136-145); TOTAL PROTEIN 6.3 G/DL (6.4-8.2)
[2017-07-16 09:06] LABS: BILIRUBIN,DIRECT 0.2 MG/DL (0.0-0.3)
[2017-07-16 09:15] LABS: EOSINOPHILS % (AUTO) 1.5 % (0.0-3.0); LYMPHOCYTES % (AUTO) 7.2 % (20.0-45.0); MEAN CORPUSCULAR HEMOGLOBIN 33.3 PG (27.0-31.0); MEAN CORPUSCULAR HGB CONC 33.6 G/DL (32.0-36.0); MEAN CORPUSCULAR VOLUME 99 FL (80-99); MEAN PLATELET VOLUME 9.9 FL (6.5-10.1); MONOCYTES % (AUTO) 7.1 % (1.0-10.0); NEUTROPHILS % (AUTO) 83.1 % (45.0-75.0); PLATELET COUNT 150 K/UL (150-450); RED BLOOD COUNT 3.85 M/UL (4.20-5.40); RED CELL DISTRIBUTION WIDTH 15.1 % (11.6-14.8); WHITE BLOOD COUNT 13.4 K/UL (4.8-10.8)
[2017-07-16] MEDS: Metoprolol Tartrate 50mg tab NG SCH ×2 (09:16→20:15)
[2017-07-16] MEDS: Venlafaxine HCl 37.5mg Tab NG SCH ×3 (09:16→17:43)
[2017-07-16] MEDS: Digoxin Elixir 0.125mg NG SCH (09:16)
[2017-07-16] MEDS: Enoxaparin 100mg Inj SUBQ SCH ×2 (09:18→20:18)
--- NOTE | 2017-07-16 10:44 | Diagnostic Imaging Report ---
Indication: Chest pain Technique: XRAY CHEST 1 V Comparison: 07/15/17 Findings: Cardiomediastinal silhouette is stable. There is a left chest pacemaker. Perihilar and basilar interstitial and airspace opacities are again noted. Small bilateral pleural effusions are suggested. Osseous structures are stable. Impression: No significant change from 07/15/17.
--- NOTE | 2017-07-16 12:36 | Pulmonology Progress Note ---
Assessment/Plan Assessment/Plan 1. Respiratory failure, extubated 2. Congestive heart failure with pulm edema, severe MR 3. Chronic obstructive pulmonary disease 4. Chronic kidney disease, BETHANY - stable 5. Hypertension. 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 Parox A fib, heparin drip Plan: hemoptysis, dark blood, less VQ scan intermediate probability, D dimer +; probable PE resumed AC w lovenox duplex neg Cr better lasix, steroid taper abx improving slowly Subjective Constitutional: Denies: fever Respiratory: Reports: hemoptysis, shortness of breath Allergies: Coded Allergies: No Known Allergies (Unverified , 05/03/17) Objective Last 24 Hour Vital Signs Date Time Temp Pulse Resp B/P (MAP) Pulse Ox O2 Delivery O2 Flow Rate FiO2 07/16/17 10:55 68 16 96 Nasal Cannula 4.0 36 07/16/17 10:47 68 16 93 Nasal Cannula 4.0 36 07/16/17 09:16 72 148/70 07/16/17 09:16 72 07/16/17 08:00 73 07/16/17 08:00 97.7 72 18 148/70 96 Nasal Cannula 4.0 07/16/17 07:08 72 18 97 Nasal Cannula 4.0 36 07/16/17 07:00 93 Nasal Cannula 4.0 36 07/16/17 07:00 71 16 93 Nasal Cannula 4.0 36 07/16/17 07:00 Nasal Cannula 4.0 36 07/16/17 06:00 97.6 79 22 137/68 96 Nasal Cannula 4.0 07/16/17 04:00 97.9 72 22 135/71 94 Nasal Cannula 4.0 07/16/17 03:43 63 07/16/17 03:02 68 24 96 Nasal Cannula 4.0 36 07/16/17 02:56 36 07/16/17 02:55 66 24 94 Nasal Cannula 4.0 36 07/16/17 00:00 98.8 70 26 145/73 95 Nasal Cannula 4.0 07/15/17 23:48 69 20 96 Nasal Cannula 4.0 36 07/15/17 23:47 68 20 95 Nasal Cannula 4.0 36 07/15/17 23:46 Nasal Cannula 4.0 36 07/15/17 23:45 95 Nasal Cannula 4.0 36 07/15/17 21:11 80 133/60 12/8/17 20:12 82 07/15/17 20:00 98.5 81 21 133/60 100 Nasal Cannula 4.0 07/15/17 16:00 76 07/15/17 16:00 98.9 80 18 133/73 93 Nasal Cannula 4.0 07/15/17 15:00 Nasal Cannula 4.0 36 07/15/17 15:00 Nasal Cannula 4.0 36 Objective very alert General Appearance: no acute distress HEENT: atraumatic Respiratory/Chest: decreased breath sounds Cardiovascular: normal rate Microbiology Date/Time Source Procedure Growth Status 07/14/17 22:30 Sputum Gram Stain - Final Resulted 07/14/17 22:30 Sputum Sputum Culture - Preliminary NORMAL UPPER RESPIRATORY RUPA AT 24 ... Resulted Laboratory Tests 07/16/17 08:00: White Blood Count 13.4H, Red Blood Count 3.85L, Hemoglobin 12.8#, Hematocrit 38.2#, Mean Corpuscular Volume 99, Mean Corpuscular Hemoglobin 33.3H, Mean Corpuscular Hemoglobin Concent 33.6, Red Cell Distribution Width 15.1H, Platelet Count 150, Mean Platelet Volume 9.9, Neutrophils (%) (Auto) 83.1H, Lymphocytes (%) (Auto) 7.2L, Monocytes (%) (Auto) 7.1, Eosinophils (%) (Auto) 1.5, Basophils (%) (Auto) 1.0, Sodium Level 146H, Potassium Level 4.2, Chloride Level 107, Carbon Dioxide Level 37H, Anion Gap 2L, Blood Urea Nitrogen 56H, Creatinine 1.4H, Estimat Glomerular Filtration Rate 45.1, Glucose Level 93, Calcium Level 8.6, Magnesium Level 2.2, Total Bilirubin 1.1H, Direct Bilirubin 0.2, Aspartate Amino Transf (AST/SGOT) 27, Alanine Aminotransferase (ALT/SGPT) 20, Alkaline Phosphatase 53, Total Protein 6.3L, Albumin 2.8L, Globulin 3.5, Albumin/Globulin Ratio 0.8L Current Medications Medications (Trade) Dose Ordered Sig/Luis Miguel Route PRN Reason Start Time Stop Time Status Last Admin Dose Admin Acetaminophen (Tylenol) 650 mg Q4H PRN NG Mild Pain/Temp > 100.5 07/12/17 16:45 08/05/17 08:44 07/15/17 21:12 Atorvastatin Calcium (Lipitor) 80 mg BEDTIME GT 07/12/17 21:00 08/05/17 20:59 07/15/17 21:10 Cefepime HCl 1 gm/ Dextrose 50 ml @ 100 mls/hr DAILY@1800 IVPB 07/14/17 18:00 07/21/17 17:59 07/15/17 17:52 Dextrose (Dextrose 50%) STAT PRN IV Hypoglycemia 07/12/17 14:30 08/11/17 14:29 Digoxin (Lanoxin) 0.125 mg DAILY NG 07/13/17 09:00 08/09/17 08:59 07/16/17 09:16 Enoxaparin Sodium (Lovenox) 100 mg EVERY 12 HOURS SUBQ 07/15/17 22:15 08/14/17 22:14 07/16/17 09:18 Insulin Aspart (NovoLOG Mix 70/ 30) 16 units PRE BFAST AND DINNER SUBQ 07/12/17 16:30 08/10/17 08:59 07/16/17 06:14 Insulin Aspart (NovoLOG) BEFORE MEALS AND HS SUBQ 07/12/17 16:30 08/10/17 11:29 07/16/17 06:13 Ipratropium [place] (Atrovent) 500 mcg Q4HRT HHN 07/15/17 23:00 07/21/17 00:59 07/16/17 10:47 Lansoprazole (Prevacid) 30 mg DAILY NG 07/16/17 09:00 08/15/17 08:59 07/16/17 09:16 Metoprolol Tartrate (Lopressor) 50 mg Q12HR NG 07/12/17 21:00 08/05/17 09:29 07/16/17 09:16 Metronidazole (Flagyl) 500 mg Q8HR NG 07/16/17 06:00 07/23/17 05:59 07/16/17 06:09 Prednisone (predniSONE) 20 mg DAILY ORAL 07/14/17 09:00 08/13/17 08:59 07/16/17 09:17 Vancomycin HCl (Vanco rx to dose) 1 ea DAILYPRN PRN MISC Per rx protocol 07/15/17 17:00 08/14/17 16:59 Vancomycin/Sodium Chloride 250 ml @ 166.667 mls/hr DAILY@2100 IVPB 07/16/17 21:00 07/21/17 20:59 Venlafaxine HCl (Effexor) 75 mg THREE TIMES A DAY NG 07/12/17 15:00 08/05/17 14:59 07/16/17 09:16 KRIS ZAPATA Jul 16, 2017 12:36
[2017-07-16] MEDS ORDERED: Tubing Blood Filter IV ONE (17:12)
[2017-07-16] MEDS ORDERED: Tubing IV Secondary IV ONE (17:12)
[2017-07-16] MEDS ORDERED: 1/2 NS 1000ml IV ONE (17:12)
[2017-07-16] MEDS ORDERED: NS 500ML ONE (17:12)
--- NOTE | 2017-07-16 19:02 | Nephrology Progress Note ---
Assessment/Plan Assessment 1) Grace, I am suspecting cardio-renal syndrome, renal FX is improving with diuresis 2) Fluid overload/CHF 3) S/P respiratory failure 4) She has some metabolic alkalosis due to loop diuretics Plan: Will give lasix 80 mg IV Q8 [id number] In presence of GRACE will continue off cozaar, until renal FX is back to baseline Replete K Check labs in AM Subjective Subjective She is feeling better, creat is down to 1.4, she is less sob Objective Objective Last 24 Hour Vital Signs Date Time Temp Pulse Resp B/P (MAP) Pulse Ox O2 Delivery O2 Flow Rate FiO2 07/16/17 18:00 66 07/16/17 16:00 97.9 73 20 153/92 94 Nasal Cannula 4.0 07/16/17 14:28 Nasal Cannula 07/16/17 14:28 Nasal Cannula 07/16/17 12:00 64 07/16/17 12:00 97.7 73 18 150/73 96 Nasal Cannula 4.0 07/16/17 10:55 68 16 96 Nasal Cannula 4.0 36 07/16/17 10:47 68 16 93 Nasal Cannula 4.0 36 07/16/17 09:16 72 148/70 07/16/17 09:16 72 07/16/17 08:00 73 07/16/17 08:00 97.7 72 18 148/70 96 Nasal Cannula 4.0 07/16/17 07:08 72 18 97 Nasal Cannula 4.0 36 07/16/17 07:00 93 Nasal Cannula 4.0 36 07/16/17 07:00 71 16 93 Nasal Cannula 4.0 36 07/16/17 07:00 Nasal Cannula 4.0 36 07/16/17 06:00 97.6 79 22 137/68 96 Nasal Cannula 4.0 07/16/17 04:00 97.9 72 22 135/71 94 Nasal Cannula 4.0 07/16/17 03:43 63 07/16/17 03:02 68 24 96 Nasal Cannula 4.0 36 07/16/17 02:56 36 07/16/17 02:55 66 24 94 Nasal Cannula 4.0 36 07/16/17 00:00 98.8 70 26 145/73 95 Nasal Cannula 4.0 07/15/17 23:48 69 20 96 Nasal Cannula 4.0 36 07/15/17 23:47 68 20 95 Nasal Cannula 4.0 36 07/15/17 23:46 Nasal Cannula 4.0 36 07/15/17 23:45 95 Nasal Cannula 4.0 36 07/15/17 21:11 80 133/60 07/15/17 20:12 82 07/15/17 20:00 98.5 81 21 133/60 100 Nasal Cannula 4.0 Intake and Output 07/16/17 07/17/17 19:00 07:00 Intake Total 890 ml Output Total 2500 ml Balance -1610 ml Intake Oral 840 ml IV Total 50 ml Output Urine Total 2500 ml Laboratory Tests 07/16/17 08:00: White Blood Count 13.4H, Red Blood Count 3.85L, Hemoglobin 12.8#, Hematocrit 38.2#, Mean Corpuscular Volume 99, Mean Corpuscular Hemoglobin 33.3H, Mean Corpuscular Hemoglobin Concent 33.6, Red Cell Distribution Width 15.1H, Platelet Count 150, Mean Platelet Volume 9.9, Neutrophils (%) (Auto) 83.1H, Lymphocytes (%) (Auto) 7.2L, Monocytes (%) (Auto) 7.1, Eosinophils (%) (Auto) 1.5, Basophils (%) (Auto) 1.0, Sodium Level 146H, Potassium Level 4.2, Chloride Level 107, Carbon Dioxide Level 37H, Anion Gap 2L, Blood Urea Nitrogen 56H, Creatinine 1.4H, Estimat Glomerular Filtration Rate 45.1, Glucose Level 93, Calcium Level 8.6, Magnesium Level 2.2, Total Bilirubin 1.1H, Direct Bilirubin 0.2, Aspartate Amino Transf (AST/SGOT) 27, Alanine Aminotransferase (ALT/SGPT) 20, Alkaline Phosphatase 53, Total Protein 6.3L, Albumin 2.8L, Globulin 3.5, Albumin/Globulin Ratio 0.8L Height (Feet): 6 Height (Inches): 0.00 Weight (Pounds): 217 General Appearance: WD/WN EENT: PERRL/EOMI Neck: non-tender, normal alignment Cardiovascular: normal peripheral pulses, JVD - high Respiratory/Chest: chest wall non-tender, decreased breath sounds Abdomen: normal bowel sounds, non tender Extremities: normal range of motion, moderate edema 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
[2017-07-16] MEDS: Atorvastatin 80mg tab GT SCH (20:15)
[2017-07-16] MEDS: Vancomycin 750mg/NS 250ml 250 ML IVPB SCH (20:19)
[2017-07-17] VITALS: BP 152/86
[2017-07-17] MEDS: Ipratropium 0.02% Inh Soln 2.5ml UD HHN SCH ×6 (02:40→23:12)
[2017-07-17 04:00] VITALS: BP 153/91
[2017-07-17 05:07] LABS: BASOPHILS % (AUTO) 0.6 % (0.0-2.0); EOSINOPHILS % (AUTO) 1.9 % (0.0-3.0); LYMPHOCYTES % (AUTO) 10.6 % (20.0-45.0); MEAN CORPUSCULAR HEMOGLOBIN 34.7 PG (27.0-31.0); MEAN CORPUSCULAR HGB CONC 34.9 G/DL (32.0-36.0); MEAN CORPUSCULAR VOLUME 100 FL (80-99); MEAN PLATELET VOLUME 9.1 FL (6.5-10.1); NEUTROPHILS % (AUTO) 78.9 % (45.0-75.0); PLATELET COUNT 144 K/UL (150-450); RED CELL DISTRIBUTION WIDTH 14.7 % (11.6-14.8); WHITE BLOOD COUNT 11.2 K/UL (4.8-10.8)
[2017-07-17 05:32] LABS: ALANINE AMINOTRANSFERASE 20 U/L (12-78); ALBUMIN/GLOBULIN RATIO 0.8 (1.0-2.7); ANION GAP 1 mmol/L (5-15); ASPARTATE AMINO TRANSFERASE 27 U/L (15-37); CARBON DIOXIDE 38 MMOL/L (21-32); CHLORIDE 106 MMOL/L (98-107); CREATININE 1.3 MG/DL (0.55-1.30); GLOMERULAR FILTRATION RATE 49.2 mL/min (>60); POTASSIUM 4.1 MMOL/L (3.5-5.1); SODIUM 145 MMOL/L (136-145); TOTAL PROTEIN 6.1 G/DL (6.4-8.2)
[2017-07-17] MEDS: NovoLOG Insulin Flexpen SUBQ SCH ×4 (06:10→21:48)
[2017-07-17] MEDS: metroNIDAZOLE 500mg tab NG SCH ×3 (06:12→21:38)
[2017-07-17 08:00] VITALS: BP 146/82
[2017-07-17] MEDS: Digoxin Elixir 0.125mg NG SCH (08:51)
[2017-07-17] MEDS: Venlafaxine HCl 37.5mg Tab NG SCH ×3 (08:52→18:10)
[2017-07-17] MEDS: Metoprolol Tartrate 50mg tab NG SCH ×2 (08:52→21:38)
[2017-07-17] MEDS: Enoxaparin 100mg Inj SUBQ SCH ×2 (10:01→21:51)
--- NOTE | 2017-07-17 11:44 | Infectious Diseases Prog Note ---
Assessment/Plan Assessment/Plan ASSESSMENT AND PLAN: 1. 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 Acute kidney injury, chronic renal failure, elevated creatinine. 3. Anemia. 4. Chronic obstructive pulmonary disease. 5. Hypertension. 6. Congestive heart failure. 7. Coronary artery disease. 8. Depression. 9. Anxiety. 10. Defibrillator. 11. Atrial fibrillation. 12. Rapid ventricular response. 13. Chronic obstructive pulmonary disease. 14. Chronic kidney disease. 15. Congestive heart failure. 16. Past medical history as noted. 17. Social history is negative. 18. Family doctor is noncontributory. 19. MAR was noted. 20. Case was discussed with the RN. 21. Notes and records were reviewed and noted. 22. Allergies are negative. 23. Coag-negative Staph blood cultures, likely contaminant. Subjective Constitutional: Reports: fatigue, Denies: fever HEENT: Reports: congestion - less, other - less hemoptysis Respiratory: Reports: shortness of breath - less, other Cardiovascular: Denies: chest pain Gastrointestinal/Abdominal: Denies: nausea, vomiting, diarrhea Genitourinary: Reports: other - + bazan Neurologic: Denies: headache Psychiatric: Denies: depression Skin: Denies: rash Hematologic: Denies: bleeding Musculoskeletal: Denies: pain Allergies: Coded Allergies: No Known Allergies (Unverified , 05/03/17) Objective Vital Signs Last 24 Hour Vital Signs Date Time Temp Pulse Resp B/P (MAP) Pulse Ox O2 Delivery O2 Flow Rate FiO2 07/17/17 08:52 81 146/82 07/17/17 08:51 81 07/17/17 08:00 77 07/17/17 07:19 71 18 98 Nasal Cannula 4.0 36 07/17/17 07:13 Nasal Cannula 4.0 36 07/17/17 07:12 72 18 97 Nasal Cannula 4.0 36 07/17/17 07:12 97 Nasal Cannula 4.0 36 07/17/17 04:32 70 16 Nasal Cannula 4.0 36 07/17/17 04:00 98.3 70 18 153/91 96 Nasal Cannula 4.0 07/17/17 03:37 72 07/17/17 02:50 71 18 98 Nasal Cannula 4.0 36 07/17/17 02:40 69 16 95 Nasal Cannula 4.0 36 07/17/17 00:00 98.7 67 16 152/86 98 Nasal Cannula 4.0 07/16/17 23:34 68 07/16/17 23:32 69 18 98 Nasal Cannula 4.0 36 07/16/17 23:22 70 18 96 Nasal Cannula 4.0 36 07/16/17 20:15 74 154/79 07/16/17 20:00 97.0 74 20 154/79 96 Nasal Cannula 4.0 07/16/17 19:23 76 07/16/17 19:10 77 16 97 Nasal Cannula 4.0 36 07/16/17 19:01 Nasal Cannula 4.0 36 07/16/17 19:01 78 18 96 Nasal Cannula 4.0 36 07/16/17 19:01 96 Nasal Cannula 4.0 36 07/16/17 18:00 66 07/16/17 16:00 97.9 73 20 153/92 94 Nasal Cannula 4.0 07/16/17 14:28 Nasal Cannula 07/16/17 14:28 Nasal Cannula 07/16/17 12:00 64 07/16/17 12:00 97.7 73 18 150/73 96 Nasal Cannula 4.0 Height (Feet): 6 Height (Inches): 0.00 Weight (Pounds): 217 General Appearance: no acute distress HEENT: normocephalic, atraumatic, anicteric, mucous membranes moist, EOMI, pharynx normal, supple, no JVD Respiratory/Chest: crackles/rales, rhonchi - bilaterally Cardiovascular: normal rate, regular rhythm, no gallop/murmur, no JVD Abdomen: normal bowel sounds, soft, non tender, no organomegaly, non distended Genitourinary: other - + bazan Extremities: no cyanosis Skin: no rash 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 There is a left chest pacemaker. Perihilar and basilar interstitial and airspace opacities are again noted. Small bilateral pleural effusions are suggested. Osseous structures are stable. Impression: No significant change from 07/15/17. Microbiology Date/Time Source Procedure Growth Status 07/06/17 05:30 Blood Blood Culture - Final NO GROWTH AFTER 5 DAYS Complete 07/14/17 22:30 Sputum Gram Stain - Final Complete 07/14/17 22:30 Sputum Sputum Culture - Final NORMAL UPPER RESPIRATORY RUPA PRESENT Complete 07/06/17 06:50 Rectum VRE Culture - Final NO VANCOMYCIN RESISTANT ENTEROCOCCUS ... Complete Microbiology Date/Time Source Procedure Growth Status 07/14/17 22:30 Sputum Gram Stain - Final Complete 07/14/17 22:30 Sputum Sputum Culture - Final NORMAL UPPER RESPIRATORY RUPA PRESENT Complete Laboratory Tests Test 07/17/17 04:15 White Blood Count 11.2 K/UL (4.8-10.8) H Red Blood Count 3.80 M/UL (4.20-5.40) L Hemoglobin 13.2 G/DL (12.0-16.0) Hematocrit 37.8 % (37.0-47.0) Mean Corpuscular Volume 100 FL (80-99) H Mean Corpuscular Hemoglobin 34.7 PG (27.0-31.0) H Mean Corpuscular Hemoglobin Concent 34.9 G/DL (32.0-36.0) Red Cell Distribution Width 14.7 % (11.6-14.8) Platelet Count 144 K/UL (150-450) L Mean Platelet Volume 9.1 FL (6.5-10.1) Neutrophils (%) (Auto) 78.9 % (45.0-75.0) H Lymphocytes (%) (Auto) 10.6 % (20.0-45.0) L Monocytes (%) (Auto) 8.0 % (1.0-10.0) Eosinophils (%) (Auto) 1.9 % (0.0-3.0) Basophils (%) (Auto) 0.6 % (0.0-2.0) Sodium Level 145 MMOL/L (136-145) Potassium Level 4.1 MMOL/L (3.5-5.1) Chloride Level 106 MMOL/L (98-107) Carbon Dioxide Level 38 MMOL/L (21-32) H Anion Gap 1 mmol/L (5-15) L Blood Urea Nitrogen 44 mg/dL (7-18) H Creatinine 1.3 MG/DL (0.55-1.30) Estimat Glomerular Filtration Rate 49.2 mL/min (>60) Glucose Level 84 MG/DL (74-106) Calcium Level 9.0 MG/DL (8.5-10.1) Total Bilirubin 0.8 MG/DL (0.2-1.0) Aspartate Amino Transf (AST/SGOT) 27 U/L (15-37) Alanine Aminotransferase (ALT/SGPT) 20 U/L (12-78) Alkaline Phosphatase 54 U/L (46-116) Total Protein 6.1 G/DL (6.4-8.2) L Albumin 2.8 G/DL (3.4-5.0) L Globulin 3.3 g/dL Albumin/Globulin Ratio 0.8 (1.0-2.7) L Current Medications Medications (Trade) Dose Ordered Sig/Luis Miguel Route PRN Reason Start Time Stop Time Status Last Admin Dose Admin Acetaminophen (Tylenol) 650 mg Q4H PRN NG Mild Pain/Temp > 100.5 07/12/17 16:45 08/05/17 08:44 07/15/17 21:12 Atorvastatin Cal[place] (Lipitor) 80 mg BEDTIME GT 07/12/17 21:00 08/05/17 20:59 07/16/17 20:15 Cefepime HCl 1 gm/ Dextrose 50 ml @ 100 mls/hr DAILY@1800 IVPB 07/14/17 18:00 07/21/17 17:59 07/16/17 17:44 Dextrose (Dextrose 50%) STAT PRN IV Hypoglycemia 07/12/17 14:30 08/11/17 14:29 Digoxin (Lanoxin) 0.125 mg DAILY NG 07/13/17 09:00 08/09/17 08:59 07/17/17 08:51 Enoxaparin Sodium (Lovenox) 100 mg EVERY 12 HOURS SUBQ 07/15/17 22:15 08/14/17 22:14 07/17/17 10:01 Furosemide (Lasix) 80 mg Q8HR IV 07/16/17 22:00 07/17/17 14:01 07/17/17 06:12 Insulin Aspart (NovoLOG Mix 70/ 30) 16 units PRE BFAST AND DINNER SUBQ 07/12/17 16:30 08/10/17 08:59 07/16/17 17:42 Insulin Aspart (NovoLOG) BEFORE MEALS AND HS SUBQ 07/12/17 16:30 08/10/17 11:29 07/16/17 21:09 Ipratropium [place] (Atrovent) 500 mcg Q4HRT HHN 07/15/17 23:00 07/21/17 00:59 07/17/17 11:30 Lansoprazole (Prevacid) 30 mg DAILY NG 07/16/17 09:00 08/15/17 08:59 07/17/17 08:51 Metoprolol Tartrate (Lopressor) 50 mg Q12HR NG 07/12/17 21:00 08/05/17 09:29 07/17/17 08:52 Metronidazole (Flagyl) 500 mg Q8HR NG 07/16/17 06:00 07/23/17 05:59 07/17/17 06:12 Prednisone (predniSONE) 20 mg DAILY ORAL 07/14/17 09:00 08/13/17 08:59 07/17/17 08:51 Vancomycin HCl (Vanco rx to dose) 1 ea DAILYPRN PRN MISC Per rx protocol 07/15/17 17:00 08/14/17 16:59 Vancomycin/Sodium Chloride 250 ml @ 166.667 mls/hr DAILY@2100 IVPB 07/16/17 21:00 07/21/17 20:59 07/16/17 20:19 Venlafaxine HCl (Effexor) 75 mg THREE TIMES A DAY NG 07/12/17 15:00 08/05/17 14:59 07/17/17 08:52 RICA LEACH Jul 17, 2017 11:44
[2017-07-17 12:00] VITALS: BP 130/73
--- NOTE | 2017-07-17 13:11 | Pulmonology Progress Note ---
Assessment/Plan Assessment/Plan 1. Respiratory failure, extubated 2. Congestive heart failure with pulm edema, severe MR 3. Chronic obstructive pulmonary disease 4. Chronic kidney disease, BETHANY - stable 5. Hypertension. 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 Parox A fib, heparin drip Plan: hemoptysis, dark blood, less Probable PE continue AC w lovenox Cr better lasix, steroid taper abx improving slowly snf 1-2 days PT Subjective Constitutional: Reports: fatigue Respiratory: Reports: hemoptysis, Denies: shortness of breath Allergies: Coded Allergies: No Known Allergies (Unverified , 05/03/17) Objective Last 24 Hour Vital Signs Date Time Temp Pulse Resp B/P (MAP) Pulse Ox O2 Delivery O2 Flow Rate FiO2 07/17/17 11:36 79 18 98 Nasal Cannula 4.0 36 07/17/17 11:30 83 18 97 Nasal Cannula 4.0 36 07/17/17 08:52 81 146/82 07/17/17 08:51 81 07/17/17 08:00 77 07/17/17 08:00 97.5 81 20 146/82 95 Nasal Cannula 4.0 07/17/17 07:19 71 18 98 Nasal Cannula 4.0 36 07/17/17 07:13 Nasal Cannula 4.0 36 07/17/17 07:12 72 18 97 Nasal Cannula 4.0 36 07/17/17 07:12 97 Nasal Cannula 4.0 36 07/17/17 04:32 70 16 Nasal Cannula 4.0 36 07/17/17 04:00 98.3 70 18 153/91 96 Nasal Cannula 4.0 07/17/17 03:37 72 07/17/17 02:50 71 18 98 Nasal Cannula 4.0 36 07/17/17 02:40 69 16 95 Nasal Cannula 4.0 36 07/17/17 00:00 98.7 67 16 152/86 98 Nasal Cannula 4.0 07/16/17 23:34 68 07/16/17 23:32 69 18 98 Nasal Cannula 4.0 36 07/16/17 23:22 70 18 96 Nasal Cannula 4.0 36 07/16/17 20:15 74 154/79 07/16/17 20:00 97.0 74 20 154/79 96 Nasal Cannula 4.0 07/16/17 19:23 76 07/16/17 19:10 77 16 97 Nasal Cannula 4.0 36 07/16/17 19:01 Nasal Cannula 4.0 36 07/16/17 19:01 78 18 96 Nasal Cannula 4.0 36 07/16/17 19:01 96 Nasal Cannula 4.0 36 07/16/17 18:00 66 07/16/17 16:00 97.9 73 20 153/92 94 Nasal Cannula 4.0 07/16/17 14:28 Nasal Cannula 07/16/17 14:28 Nasal Cannula Objective very alert HEENT: normocephalic Respiratory/Chest: decreased breath sounds Cardiovascular: normal rate Microbiology Date/Time Source Procedure Growth Status 07/14/17 22:30 Sputum Gram Stain - Final Complete 07/14/17 22:30 Sputum Sputum Culture - Final NORMAL UPPER RESPIRATORY RUPA PRESENT Complete Laboratory Tests 07/17/17 04:15: White Blood Count 11.2H, Red Blood Count 3.80L, Hemoglobin 13.2, Hematocrit 37.8 , Mean Corpuscular Volume 100H, Mean Corpuscular Hemoglobin 34.7H, Mean Corpuscular Hemoglobin Concent 34.9, Red Cell Distribution Width 14.7, Platelet Count 144L, Mean Platelet Volume 9.1, Neutrophils (%) (Auto) 78.9H, Lymphocytes (%) (Auto) 10.6L, Monocytes (%) (Auto) 8.0, Eosinophils (%) (Auto) 1.9, Basophils (%) (Auto) 0.6, Sodium Level 145, Potassium Level 4.1, Chloride Level 106, Carbon Dioxide Level 38H, Anion Gap 1L, Blood Urea Nitrogen 44H, Creatinine 1.3, Estimat Glomerular Filtration Rate 49.2, Glucose Level 84, Calcium Level 9.0, Total Bilirubin 0.8, Aspartate Amino Transf (AST/SGOT) 27, Alanine Aminotransferase (ALT/SGPT) 20, Alkaline Phosphatase 54, Total Protein 6.1L, Albumin 2.8L, Globulin 3.3, Albumin/Globulin Ratio 0.8L Current Medications Medications (Trade) Dose Ordered Sig/Luis Miguel Route PRN Reason Start Time Stop Time Status Last Admin Dose Admin Acetaminophen (Tylenol) 650 mg Q4H PRN NG Mild Pain/Temp > 100.5 07/12/17 16:45 08/05/17 08:44 07/15/17 21:12 Atorvastatin Calcium (Lipitor) 80 mg BEDTIME GT 07/12/17 21:00 08/05/17 20:59 07/16/17 20:15 Cefepime HCl 1 gm/ Dextrose 50 ml @ 100 mls/hr DAILY@1800 IVPB 07/14/17 18:00 07/21/17 17:59 07/16/17 17:44 Dextrose (Dextrose 50%) STAT PRN IV Hypoglycemia 07/12/17 14:30 08/11/17 14:29 Digoxin (Lanoxin) 0.125 mg DAILY NG 07/13/17 09:00 08/09/17 08:59 07/17/17 08:51 Enoxaparin Sodium (Lovenox) 100 mg EVERY 12 HOURS SUBQ 07/15/17 22:15 08/14/17 22:14 07/17/17 10:01 Furosemide (Lasix) 80 mg Q8HR IV 07/16/17 22:00 07/17/17 14:01 07/17/17 06:12 Insulin Aspart (NovoLOG Mix 70/ 30) 16 units PRE BFAST AND DINNER SUBQ 07/12/17 16:30 08/10/17 08:59 07/16/17 17:42 Insulin Aspart (NovoLOG) BEFORE MEALS AND HS SUBQ 07/12/17 16:30 08/10/17 11:29 07/17/17 12:51 Ipratropium [place] (Atrovent) 500 mcg Q4HRT HHN 07/15/17 23:00 07/21/17 00:59 07/17/17 11:30 Lansoprazole (Prevacid) 30 mg DAILY NG 07/16/17 09:00 08/15/17 08:59 07/17/17 08:51 Metoprolol Tartrate (Lopressor) 50 mg Q12HR NG 07/12/17 21:00 08/05/17 09:29 07/17/17 08:52 Metronidazole (Flagyl) 500 mg Q8HR NG 07/16/17 06:00 07/23/17 05:59 07/17/17 06:12 Prednisone (predniSONE) 20 mg DAILY ORAL 07/14/17 09:00 08/13/17 08:59 07/17/17 08:51 Vancomycin HCl (Vanco rx to dose) 1 ea DAILYPRN PRN MISC Per rx protocol 07/15/17 17:00 08/14/17 16:59 Vancomycin/Sodium Chloride 250 ml @ 166.667 mls/hr DAILY@2100 IVPB 07/16/17 21:00 07/21/17 20:59 07/16/17 20:19 Venlafaxine HCl (Effexor) 75 mg THREE TIMES A DAY NG 07/12/17 15:00 08/05/17 14:59 07/17/17 08:52 KRIS ZAPATA Jul 17, 2017 13:11
[2017-07-17 16:00] VITALS: BP 157/92
--- NOTE | 2017-07-17 18:10 | Nephrology Progress Note ---
Assessment/Plan Assessment 1) Grace, I am suspecting cardio-renal syndrome, renal FX is improving with diuresis 2) Fluid overload/CHF 3) S/P respiratory failure 4) She has some metabolic alkalosis due to loop diuretics Plan: Will start her on lasix 40 mg po bid Will start her on Cozaar Weight on standing scale labs in AM Subjective Subjective She is feeling better, she had a good diuresis, creat is down to 1.3, no c/p, less leg edema Objective Objective Last 24 Hour Vital Signs Date Time Temp Pulse Resp B/P (MAP) Pulse Ox O2 Delivery O2 Flow Rate FiO2 07/17/17 16:00 81 07/17/17 14:30 79 18 98 Nasal Cannula 4.0 36 07/17/17 14:20 73 16 95 Nasal Cannula 4.0 36 07/17/17 11:49 77 07/17/17 11:36 79 18 98 Nasal Cannula 4.0 36 07/17/17 11:30 83 18 97 Nasal Cannula 4.0 36 07/17/17 08:52 81 146/82 07/17/17 08:51 81 07/17/17 08:00 77 07/17/17 08:00 97.5 81 20 146/82 95 Nasal Cannula 4.0 07/17/17 07:19 71 18 98 Nasal Cannula 4.0 36 07/17/17 07:13 Nasal Cannula 4.0 36 07/17/17 07:12 72 18 97 Nasal Cannula 4.0 36 07/17/17 07:12 97 Nasal Cannula 4.0 36 07/17/17 04:32 70 16 Nasal Cannula 4.0 36 07/17/17 04:00 98.3 70 18 153/91 96 Nasal Cannula 4.0 07/17/17 03:37 72 07/17/17 02:50 71 18 98 Nasal Cannula 4.0 36 07/17/17 02:40 69 16 95 Nasal Cannula 4.0 36 07/17/17 00:00 98.7 67 16 152/86 98 Nasal Cannula 4.0 07/16/17 23:34 68 07/16/17 23:32 69 18 98 Nasal Cannula 4.0 36 07/16/17 23:22 70 18 96 Nasal Cannula 4.0 36 07/16/17 20:15 74 154/79 07/16/17 20:00 97.0 74 20 154/79 96 Nasal Cannula 4.0 07/16/17 19:23 76 07/16/17 19:10 77 16 97 Nasal Cannula 4.0 36 07/16/17 19:01 Nasal Cannula 4.0 36 07/16/17 19:01 78 18 96 Nasal Cannula 4.0 36 07/16/17 19:01 96 Nasal Cannula 4.0 36 Laboratory Tests 07/17/17 04:15: White Blood Count 11.2H, Red Blood Count 3.80L, Hemoglobin 13.2, Hematocrit 37.8 , Mean Corpuscular Volume 100H, Mean Corpuscular Hemoglobin 34.7H, Mean Corpuscular Hemoglobin Concent 34.9, Red Cell Distribution Width 14.7, Platelet Count 144L, Mean Platelet Volume 9.1, Neutrophils (%) (Auto) 78.9H, Lymphocytes (%) (Auto) 10.6L, Monocytes (%) (Auto) 8.0, Eosinophils (%) (Auto) 1.9, Basophils (%) (Auto) 0.6, Sodium Level 145, Potassium Level 4.1, Chloride Level 106, Carbon Dioxide Level 38H, Anion Gap 1L, Blood Urea Nitrogen 44H, Creatinine 1.3, Estimat Glomerular Filtration Rate 49.2, Glucose Level 84, Calcium Level 9.0, Total Bilirubin 0.8, Aspartate Amino Transf (AST/SGOT) 27, Alanine Aminotransferase (ALT/SGPT) 20, Alkaline Phosphatase 54, Total Protein 6.1L, Albumin 2.8L, Globulin 3.3, Albumin/Globulin Ratio 0.8L Height (Feet): 6 Height (Inches): 0.00 Weight (Pounds): 217 General Appearance: WD/WN, no apparent distress EENT: PERRL/EOMI Neck: non-tender Cardiovascular: normal rate, regular rhythm Respiratory/Chest: lungs clear Abdomen: normal bowel sounds, non tender, soft Extremities: normal range of motion 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
[2017-07-17 20:00] VITALS: BP 156/72
[2017-07-17] MEDS: Losartan 50mg tab ORAL SCH (21:38)
[2017-07-17] MEDS: Atorvastatin 80mg tab GT SCH (21:39)
[2017-07-17] MEDS: Furosemide 40mg tab ORAL SCH (21:39)
[2017-07-17] MEDS: Vancomycin 750mg/NS 250ml 250 ML IVPB SCH (21:59)
--- NOTE | 2017-07-17 23:46 | Progress Note ---
DATE: 07/16/2017 CARDIOLOGY PROGRESS NOTE SUBJECTIVE: The patient has less hemoptysis. She remains on anticoagulation. Ventilation/perfusion scan is intermediate probability. The D-dimer was elevated. Venous duplex is negative. She continues on lower dose of diuretics. OBJECTIVE: VITAL SIGNS: Blood pressure 148/70, pulse 72, respiratory rate 18. LUNGS: Few rales. HEART: Irregularly irregular rhythm. Normal S1 and S2. ABDOMEN: Soft. EXTREMITIES: Trace edema. IMPRESSION: 1. Paroxysmal atrial fibrillation. 2. Cardiomyopathy with cardiac defibrillator. 3. Acute on chronic diastolic congestive heart failure. 4. Acute on chronic renal failure. 5. Possible pulmonary embolus. 6. Positive blood culture. PLAN: 1. Adjust diuretics. 2. Full anticoagulation. 3. Steroid taper. 4. Antimicrobials. 5. Monitor volume status and cardiorenal parameters. 6. Consider CT angio of the chest if renal parameters improve. Víctor Kuhn M.D. DR: MACRINA JOB#: [id number] CC:
[2017-07-18] VITALS: BP 154/83
--- NOTE | 2017-07-18 00:01 | Progress Note ---
DATE: 07/17/2017 CARDIOLOGY PROGRESS NOTE SUBJECTIVE: Less shortness of breath. Less hemoptysis. Remains on full anticoagulation. OBJECTIVE: VITAL SIGNS: Blood pressure 156/72, pulse 78, and respirations 20. NECK: Supple. LUNGS: With few rales. CARDIAC: Irregularly irregular. Normal S1, S2. A 1/6 systolic murmur. ABDOMEN: Soft. EXTREMITIES: No edema. LABORATORY DATA: White count 11 and hemoglobin 13. BUN 44 and creatinine 1.3. Potassium 4.1. Albumin 3.3. IMPRESSION: 1. Acute on chronic systolic and diastolic congestive heart failure, improving. 2. Acute on chronic renal failure, resolving. 3. Cardiac defibrillator. 4. Paroxysmal atrial and ventricular arrhythmias, rate controlled. 5. Probable pulmonary embolic event with associated hemoptysis. 6. Sepsis. 7. Hypertensive heart disease. PLAN: 1. Recheck laboratory studies including natriuretic peptide and digoxin levels. 2. Adjust diuretic dose accordingly. 3. Continue beta-tuan and losartan. 4. Steroid taper. 5. Full anticoagulation. Víctor Kuhn M.D. DR: VICTOR MANUEL JOB#: [id number] CC:
--- NOTE | 2017-07-18 01:46 | Progress Note ---
DATE: 07/15/2017 CARDIOLOGY PROGRESS NOTE Late Entry SUBJECTIVE: The patient continues to have hemoptysis. The case was reviewed with Dr. Decker. Monitored rhythm sinus with episodes of atrial fibrillation. OBJECTIVE: VITAL SIGNS: Blood pressure 129/82, pulse 73, and respirations 24. NECK: Supple. LUNGS: With diminished breath sounds. CARDIAC: Irregularly irregular. Normal S1 and S2. ABDOMEN: Soft. EXTREMITIES: Trace edema. LABORATORY AND DIAGNOSTIC DATA: V/Q scan is pending. White count 10.9 and hemoglobin 7.3. Potassium 3.8, BUN 81, and creatinine 1.9. Albumin ___. IMPRESSION: 1. Hemoptysis. 2. Elevated D-dimer. 3. Possible pulmonary embolus. 4. Acute on chronic renal failure, improved. 5. Acute on chronic congestive heart failure, improving. 6. Severe protein-calorie malnutrition. 7. Paroxysmal atrial fibrillation now with controlled heart rate. PLAN: 1. Maintain anticoagulation. 2. Await results of V/Q scan. 3. Continue antimicrobials. 4. Cautious diuresis. 5. Maintain beta-blockade and digitalis for rate control. Víctor Kuhn M.D. DR: KRYSTAL JOB#: [id number] CC:
[2017-07-18] MEDS: Ipratropium 0.02% Inh Soln 2.5ml UD HHN SCH ×6 (03:00→22:42)
[2017-07-18 04:00] VITALS: BP 148/86
[2017-07-18 05:08] LABS: BASOPHILS % (AUTO) 0.6 % (0.0-2.0); EOSINOPHILS % (AUTO) 1.5 % (0.0-3.0); LYMPHOCYTES % (AUTO) 11.9 % (20.0-45.0); MEAN CORPUSCULAR HEMOGLOBIN 33.6 PG (27.0-31.0); MEAN CORPUSCULAR HGB CONC 33.6 G/DL (32.0-36.0); MEAN CORPUSCULAR VOLUME 100 FL (80-99); MEAN PLATELET VOLUME 8.5 FL (6.5-10.1); MONOCYTES % (AUTO) 8.1 % (1.0-10.0); NEUTROPHILS % (AUTO) 77.9 % (45.0-75.0); PLATELET COUNT 161 K/UL (150-450); RED BLOOD COUNT 3.95 M/UL (4.20-5.40); RED CELL DISTRIBUTION WIDTH 14.6 % (11.6-14.8); WHITE BLOOD COUNT 10.7 K/UL (4.8-10.8)
[2017-07-18 05:20] LABS: ANION GAP 7 mmol/L (5-15); CALCIUM 8.4 MG/DL (8.5-10.1); CARBON DIOXIDE 31 MMOL/L (21-32); CHLORIDE 104 MMOL/L (98-107); CREATININE 1.1 MG/DL (0.55-1.30); GLOMERULAR FILTRATION RATE 59.8 mL/min (>60); POTASSIUM 4.2 MMOL/L (3.5-5.1); SODIUM 142 MMOL/L (136-145)
[2017-07-18 05:39] LABS: MAGNESIUM 1.8 MG/DL (1.8-2.4)
[2017-07-18] MEDS: NovoLOG Insulin Flexpen SUBQ SCH ×4 (06:08→21:17)
[2017-07-18] MEDS: metroNIDAZOLE 500mg tab NG SCH ×3 (06:10→22:03)
[2017-07-18 08:00] VITALS: BP 141/80
[2017-07-18] MEDS: Metoprolol Tartrate 50mg tab NG SCH ×2 (09:03→21:15)
[2017-07-18] MEDS: Furosemide 40mg tab ORAL SCH ×2 (09:03→21:15)
[2017-07-18] MEDS: Venlafaxine HCl 37.5mg Tab NG SCH ×3 (09:03→17:34)
[2017-07-18] MEDS: Digoxin Elixir 0.125mg NG SCH (09:04)
[2017-07-18] MEDS: Losartan 50mg tab ORAL SCH ×2 (09:05→21:15)
[2017-07-18] MEDS: Enoxaparin 100mg Inj SUBQ SCH ×2 (09:07→21:17)
--- NOTE | 2017-07-18 11:59 | Infectious Diseases Prog Note ---
Assessment/Plan Assessment/Plan ASSESSMENT AND PLAN: 1. 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 Acute kidney injury, chronic renal failure, elevated creatinine. 3. Anemia. 4. Chronic obstructive pulmonary disease. 5. Hypertension. 6. Congestive heart failure. 7. Coronary artery disease. 8. Depression. 9. Anxiety. 10. Defibrillator. 11. Atrial fibrillation. 12. Rapid ventricular response. 13. Chronic obstructive pulmonary disease. 14. Chronic kidney disease. 15. Congestive heart failure. 16. Past medical history as noted. 17. Social history is negative. 18. Family doctor is noncontributory. 19. MAR was noted. 20. Case was discussed with the RN. 21. Notes and records were reviewed and noted. 22. Allergies are negative. 23. Coag-negative Staph blood cultures, likely contaminant. Subjective Constitutional: Denies: fever HEENT: Reports: congestion - less, other - less hemoptysis Respiratory: Reports: shortness of breath - less, Denies: productive cough Cardiovascular: Reports: chest pain Gastrointestinal/Abdominal: Denies: nausea, vomiting, diarrhea Genitourinary: Denies: vaginal bleed/discharge Neurologic: Denies: headache Psychiatric: Denies: depression Skin: Denies: rash Hematologic: Denies: bleeding Musculoskeletal: Denies: pain Allergies: Coded Allergies: No Known Allergies (Unverified , 05/03/17) Objective Vital Signs Last 24 Hour Vital Signs Date Time Temp Pulse Resp B/P (MAP) Pulse Ox O2 Delivery O2 Flow Rate FiO2 07/18/17 11:05 83 18 98 Nasal Cannula 2.0 28 07/18/17 10:55 84 16 91 Nasal Cannula 2.0 28 07/18/17 09:05 141/80 07/18/17 09:04 80 07/18/17 09:03 80 141/80 07/18/17 08:00 97.5 80 20 141/80 91 Nasal Cannula 2.0 07/18/17 08:00 82 07/18/17 07:10 75 18 98 Nasal Cannula 2.0 28 07/18/17 06:59 91 Nasal Cannula 2.0 28 07/18/17 06:59 Nasal Cannula 2.0 28 07/18/17 06:59 74 18 91 Nasal Cannula 2.0 28 07/18/17 04:15 70 07/18/17 04:00 98.0 74 20 148/86 94 Nasal Cannula 4.0 07/18/17 03:44 Nasal Cannula 4.0 07/18/17 03:44 Nasal Cannula 4.0 07/18/17 00:00 98.9 71 20 154/83 95 Nasal Cannula 4.0 07/17/17 23:52 69 07/17/17 23:23 73 18 98 Nasal Cannula 4.0 36 07/17/17 23:12 71 16 96 Nasal Cannula 4.0 36 07/17/17 21:38 156/72 07/17/17 21:38 78 156/72 07/17/17 20:00 98.5 78 20 156/72 96 Nasal Cannula 4.0 07/17/17 19:56 77 18 98 Nasal Cannula 4.0 36 07/17/17 19:47 96 Nasal Cannula 4.0 36 07/17/17 19:47 Nasal Cannula 4.0 36 07/17/17 19:46 75 16 96 Nasal Cannula 4.0 36 07/17/17 19:08 80 07/17/17 16:00 81 07/17/17 16:00 97.3 75 20 157/92 97 Nasal Cannula 4.0 07/17/17 14:30 79 18 98 Nasal Cannula 4.0 36 07/17/17 14:20 73 16 95 Nasal Cannula 4.0 36 07/17/17 12:00 98.2 76 20 130/73 97 Nasal Cannula 4.0 Height (Feet): 6 Height (Inches): 0.00 Weight (Pounds): 216 General Appearance: WD/WN HEENT: normocephalic, atraumatic, anicteric, mucous membranes moist, EOMI, pharynx normal, supple, no JVD Respiratory/Chest: normal breath sounds, no respiratory distress, no accessory muscle use, crackles/rales, rhonchi - bilaterally Cardiovascular: normal rate, regular rhythm, no gallop/murmur, no JVD Abdomen: normal bowel sounds, soft, non tender, no organomegaly, non distended Genitourinary: other - + bazan Extremities: no cyanosis Skin: no rash 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 There is a left chest pacemaker. Perihilar and basilar interstitial and airspace opacities are again noted. Small bilateral pleural effusions are suggested. Osseous structures are stable. Impression: No significant change from 07/15/17. Microbiology Date/Time Source Procedure Growth Status 07/06/17 05:30 Blood Blood Culture - Final NO GROWTH AFTER 5 DAYS Complete 07/14/17 22:30 Sputum Gram Stain - Final Complete 07/14/17 22:30 Sputum Sputum Culture - Final NORMAL UPPER RESPIRATORY RUPA PRESENT Complete 07/06/17 06:50 Rectum VRE Culture - Final NO VANCOMYCIN RESISTANT ENTEROCOCCUS ... Complete Laboratory Tests Test 07/17/17 20:25 07/18/17 04:20 Vancomycin Level Trough 12.0 ug/mL (5.0-12.0) White Blood Count 10.7 K/UL (4.8-10.8) Red Blood Count 3.95 M/UL (4.20-5.40) L Hemoglobin 13.3 G/DL (12.0-16.0) Hematocrit 39.5 % (37.0-47.0) Mean Corpuscular Volume 100 FL (80-99) H Mean Corpuscular Hemoglobin 33.6 PG (27.0-31.0) H Mean Corpuscular Hemoglobin Concent 33.6 G/DL (32.0-36.0) Red Cell Distribution Width 14.6 % (11.6-14.8) Platelet Count 161 K/UL (150-450) Mean Platelet Volume 8.5 FL (6.5-10.1) Neutrophils (%) (Auto) 77.9 % (45.0-75.0) H Lymphocytes (%) (Auto) 11.9 % (20.0-45.0) L Monocytes (%) (Auto) 8.1 % (1.0-10.0) Eosinophils (%) (Auto) 1.5 % (0.0-3.0) Basophils (%) (Auto) 0.6 % (0.0-2.0) Sodium Level 142 MMOL/L (136-145) Potassium Level 4.2 MMOL/L (3.5-5.1) Chloride Level 104 MMOL/L (98-107) Carbon Dioxide Level 31 MMOL/L (21-32) Anion Gap 7 mmol/L (5-15) Blood Urea Nitrogen 32 mg/dL (7-18) H Creatinine 1.1 MG/DL (0.55-1.30) Estimat Glomerular Filtration Rate 59.8 mL/min (>60) Glucose Level 86 MG/DL (74-106) Calcium Level 8.4 MG/DL (8.5-10.1) L Magnesium Level 1.8 MG/DL (1.8-2.4) Pro-B-Type Natriuretic Peptide 8859 pg/mL (0-125) H Digoxin Level 0.7 NG/ML (0.9-2.0) L Current Medications Medications (Trade) Dose Ordered Sig/Luis Miguel Route PRN Reason Start Time Stop Time Status Last Admin Dose Admin Acetaminophen (Tylenol) 650 mg Q4H PRN NG Mild Pain/Temp > 100.5 07/12/17 16:45 08/05/17 08:44 07/15/17 21:12 Atorvastatin Calcium (Lipitor) 80 mg BEDTIME GT 07/12/17 21:00 08/05/17 20:59 07/17/17 21:39 Cefepime HCl 1 gm/ Dextrose 50 ml @ 100 mls/hr DAILY@1800 IVPB 07/14/17 18:00 07/21/17 17:59 07/17/17 18:10 Dextrose (Dextrose 50%) STAT PRN IV Hypoglycemia 07/12/17 14:30 08/11/17 14:29 Digoxin (Lanoxin) 0.125 mg DAILY NG 07/13/17 09:00 08/09/17 08:59 07/18/17 09:04 Enoxaparin Sodium (Lovenox) 100 mg EVERY 12 HOURS SUBQ 07/15/17 22:15 08/14/17 22:14 07/18/17 09:07 Furosemide (Lasix) 40 mg EVERY 12 HOURS ORAL 07/17/17 21:00 08/16/17 20:59 07/18/17 09:03 Insulin Aspart (NovoLOG Mix 70/ 30) 16 units PRE BFAST AND DINNER SUBQ 07/12/17 16:30 08/10/17 08:59 12/10/17 16:59 Insulin Aspart (NovoLOG) BEFORE MEALS AND HS SUBQ 07/12/17 16:30 08/10/17 11:29 07/18/17 11:43 Ipratropium [place] (Atrovent) 500 mcg Q4HRT HHN 07/15/17 23:00 07/21/17 00:59 07/18/17 10:55 Lansoprazole (Prevacid) 30 mg DAILY NG 07/16/17 09:00 08/15/17 08:59 07/18/17 09:03 Losartan Potassium (Cozaar) 50 mg EVERY 12 HOURS ORAL 07/17/17 21:00 08/16/17 20:59 07/18/17 09:05 Metoprolol Tartrate (Lopressor) 50 mg Q12HR NG 07/12/17 21:00 08/05/17 09:29 07/18/17 09:03 Metronidazole (Flagyl) 500 mg Q8HR NG 07/16/17 06:00 07/23/17 05:59 07/18/17 06:10 Prednisone (predniSONE) 20 mg DAILY ORAL 07/14/17 09:00 08/13/17 08:59 07/18/17 09:03 Vancomycin HCl (Vanco rx to dose) 1 ea DAILYPRN PRN MISC Per rx protocol 07/15/17 17:00 08/14/17 16:59 Vancomycin/Sodium Chloride 250 ml @ 166.667 mls/hr DAILY@2100 IVPB 07/16/17 21:00 07/21/17 20:59 07/17/17 21:59 Venlafaxine HCl (Effexor) 75 mg THREE TIMES A DAY NG 07/12/17 15:00 08/05/17 14:59 07/18/17 09:03 RICA LEACH Jul 18, 2017 11:59
[2017-07-18 12:00] VITALS: BP 146/65
[2017-07-18 16:00] VITALS: BP 146/76
--- NOTE | 2017-07-18 19:08 | Pulmonology Progress Note ---
Assessment/Plan Assessment/Plan 1. Respiratory failure, extubated 2. Congestive heart failure with pulm edema, severe MR 3. Chronic obstructive pulmonary disease 4. Chronic kidney disease, BETHANY - stable 5. Hypertension. 6. Sepsis, BC+ BUGGY MAN 7. Parox A fib, lovenox Plan: hemoptysis, dark blood, less Probable PE continue AC w lovenox Cr continues to improve lasix, steroid taper abx improving slowly snf tomorrow PT Subjective Respiratory: Reports: hemoptysis Allergies: Coded Allergies: No Known Allergies (Unverified , 05/03/17) Objective Last 24 Hour Vital Signs Date Time Temp Pulse Resp B/P (MAP) Pulse Ox O2 Delivery O2 Flow Rate FiO2 07/18/17 16:00 90 07/18/17 16:00 98.6 84 20 146/76 94 Nasal Cannula 2.0 07/18/17 15:05 86 20 95 Nasal Cannula 2.0 28 07/18/17 14:54 80 17 94 Nasal Cannula 2.0 28 07/18/17 12:00 97.9 76 20 146/65 95 Nasal Cannula 2.0 07/18/17 12:00 76 07/18/17 11:05 83 18 98 Nasal Cannula 2.0 28 07/18/17 10:55 84 16 91 Nasal Cannula 2.0 28 07/18/17 09:05 141/80 07/18/17 09:04 80 07/18/17 09:03 80 141/80 07/18/17 08:00 97.5 80 20 141/80 91 Nasal Cannula 2.0 07/18/17 08:00 82 07/18/17 07:10 75 18 98 Nasal Cannula 2.0 28 07/18/17 06:59 91 Nasal Cannula 2.0 28 07/18/17 06:59 Nasal Cannula 2.0 28 07/18/17 06:59 74 18 91 Nasal Cannula 2.0 28 07/18/17 04:15 70 07/18/17 04:00 98.0 74 20 148/86 94 Nasal Cannula 4.0 07/18/17 03:44 Nasal Cannula 4.0 07/18/17 03:44 Nasal Cannula 4.0 07/18/17 00:00 98.9 71 20 154/83 95 Nasal Cannula 4.0 07/17/17 23:52 69 07/17/17 23:23 73 18 98 Nasal Cannula 4.0 36 07/17/17 23:12 71 16 96 Nasal Cannula 4.0 36 07/17/17 21:38 156/72 07/17/17 21:38 78 156/72 07/17/17 20:00 98.5 78 20 156/72 96 Nasal Cannula 4.0 07/17/17 19:56 77 18 98 Nasal Cannula 4.0 36 07/17/17 19:47 96 Nasal Cannula 4.0 36 07/17/17 19:47 Nasal Cannula 4.0 36 07/17/17 19:46 75 16 96 Nasal Cannula 4.0 36 07/17/17 19:08 80 Intake and Output 07/18/17 07/19/17 19:00 07:00 Intake Total 240 ml Output Total 600 ml Balance -360 ml Intake Oral 240 ml Output Urine Total 600 ml Objective very alert General Appearance: no acute distress HEENT: anicteric Respiratory/Chest: decreased breath sounds Cardiovascular: normal rate Laboratory Tests 07/17/17 20:25: Vancomycin Level Trough 12.0 07/18/17 04:20: White Blood Count 10.7, Red Blood Count 3.95L, Hemoglobin 13.3, Hematocrit 39.5 , Mean Corpuscular Volume 100H, Mean Corpuscular Hemoglobin 33.6H, Mean Corpuscular Hemoglobin Concent 33.6, Red Cell Distribution Width 14.6, Platelet Count 161, Mean Platelet Volume 8.5, Neutrophils (%) (Auto) 77.9H, Lymphocytes ( %) (Auto) 11.9L, Monocytes (%) (Auto) 8.1, Eosinophils (%) (Auto) 1.5, Basophils (%) (Auto) 0.6, Sodium Level 142, Potassium Level 4.2, Chloride Level 104, Carbon Dioxide Level 31, Anion Gap 7, Blood Urea Nitrogen 32H, Creatinine 1.1, Estimat Glomerular Filtration Rate 59.8, Glucose Level 86, Calcium Level 8.4L, Magnesium Level 1.8, Pro-B-Type Natriuretic Peptide 8859H, Digoxin Level 0.7L Current Medications Medications (Trade) Dose Ordered Sig/Luis Miguel Route PRN Reason Start Time Stop Time Status Last Admin Dose Admin Acetaminophen (Tylenol) 650 mg Q4H PRN NG Mild Pain/Temp > 100.5 07/12/17 16:45 08/05/17 08:44 07/15/17 21:12 Atorvastatin Calcium (Lipitor) 80 mg BEDTIME GT 07/12/17 21:00 08/05/17 20:59 07/17/17 21:39 Cefepime HCl 1 gm/ Dextrose 50 ml @ 100 mls/hr DAILY@1800 IVPB 07/14/17 18:00 07/21/17 17:59 07/18/17 17:35 Dextrose (Dextrose 50%) STAT PRN IV Hypoglycemia 07/12/17 14:30 08/11/17 14:29 Digoxin (Lanoxin) 0.125 mg DAILY NG 07/13/17 09:00 08/09/17 08:59 07/18/17 09:04 Enoxaparin Sodium (Lovenox) 100 mg EVERY 12 HOURS SUBQ 07/15/17 22:15 08/14/17 22:14 07/18/17 09:07 Furosemide (Lasix) 40 mg EVERY 12 HOURS ORAL 07/17/17 21:00 08/16/17 20:59 07/18/17 09:03 Insulin Aspart (NovoLOG Mix 70/ 30) 16 units PRE BFAST AND DINNER SUBQ 07/12/17 16:30 08/10/17 08:59 07/18/17 16:33 Insulin Aspart (NovoLOG) BEFORE MEALS AND HS SUBQ 07/12/17 16:30 08/10/17 11:29 07/18/17 16:32 Ipratropium [place] (Atrovent) 500 mcg Q4HRT HHN 07/15/17 23:00 07/21/17 00:59 07/18/17 14:54 Lansoprazole (Prevacid) 30 mg DAILY NG 07/16/17 09:00 08/15/17 08:59 07/18/17 09:03 Losartan Potassium (Cozaar) 50 mg EVERY 12 HOURS ORAL 07/17/17 21:00 08/16/17 20:59 07/18/17 09:05 Metoprolol Tartrate (Lopressor) 50 mg Q12HR NG 07/12/17 21:00 08/05/17 09:29 07/18/17 09:03 Metronidazole (Flagyl) 500 mg Q8HR NG 07/16/17 06:00 07/23/17 05:59 07/18/17 14:01 Prednisone (predniSONE) 20 mg DAILY ORAL 07/14/17 09:00 08/13/17 08:59 07/18/17 09:03 Vancomycin HCl (Vanco rx to dose) 1 ea DAILYPRN PRN MISC Per rx protocol 07/15/17 17:00 08/14/17 16:59 Vancomycin/Sodium Chloride 250 ml @ 166.667 mls/hr DAILY@2100 IVPB 07/16/17 21:00 07/21/17 20:59 07/17/17 21:59 Venlafaxine HCl (Effexor) 75 mg THREE TIMES A DAY NG 07/12/17 15:00 08/05/17 14:59 07/18/17 17:34 KRIS ZAPATA Jul 18, 2017 19:08
--- NOTE | 2017-07-18 19:52 | Nephrology Progress Note ---
Assessment/Plan Assessment 1) Grace, I am suspecting cardio-renal syndrome, renal FX is improving with diuresis 2) Fluid overload/CHF 3) S/P respiratory failure 4) She has some metabolic alkalosis due to loop diuretics Plan: Will start her on lasix 40 mg po bid Continue on Cozaar 50 mg po bid Weight on standing scale Subjective Subjective She is feeling better, she had a good diuresis, creat is down to 1.1, no c/p, less leg edema Objective Objective Last 24 Hour Vital Signs Date Time Temp Pulse Resp B/P (MAP) Pulse Ox O2 Delivery O2 Flow Rate FiO2 07/18/17 16:00 90 07/18/17 16:00 98.6 84 20 146/76 94 Nasal Cannula 2.0 07/18/17 15:05 86 20 95 Nasal Cannula 2.0 28 07/18/17 14:54 80 17 94 Nasal Cannula 2.0 28 07/18/17 12:00 97.9 76 20 146/65 95 Nasal Cannula 2.0 07/18/17 12:00 76 07/18/17 11:05 83 18 98 Nasal Cannula 2.0 28 07/18/17 10:55 84 16 91 Nasal Cannula 2.0 28 07/18/17 09:05 141/80 07/18/17 09:04 80 07/18/17 09:03 80 141/80 07/18/17 08:00 97.5 80 20 141/80 91 Nasal Cannula 2.0 07/18/17 08:00 82 07/18/17 07:10 75 18 98 Nasal Cannula 2.0 28 07/18/17 06:59 91 Nasal Cannula 2.0 28 07/18/17 06:59 Nasal Cannula 2.0 28 07/18/17 06:59 74 18 91 Nasal Cannula 2.0 28 07/18/17 04:15 70 07/18/17 04:00 98.0 74 20 148/86 94 Nasal Cannula 4.0 07/18/17 03:44 Nasal Cannula 4.0 07/18/17 03:44 Nasal Cannula 4.0 07/18/17 00:00 98.9 71 20 154/83 95 Nasal Cannula 4.0 07/17/17 23:52 69 07/17/17 23:23 73 18 98 Nasal Cannula 4.0 36 07/17/17 23:12 71 16 96 Nasal Cannula 4.0 36 07/17/17 21:38 156/72 07/17/17 21:38 78 156/72 07/17/17 20:00 98.5 78 20 156/72 96 Nasal Cannula 4.0 07/17/17 19:56 77 18 98 Nasal Cannula 4.0 36 Intake and Output 07/18/17 07/19/17 19:00 07:00 Intake Total 1010 ml Output Total 600 ml Balance 410 ml Intake Oral 960 ml IV Total 50 ml Output Urine Total 600 ml # Bowel Movements 3 Laboratory Tests 07/17/17 20:25: Vancomycin Level Trough 12.0 07/18/17 04:20: White Blood Count 10.7, Red Blood Count 3.95L, Hemoglobin 13.3, Hematocrit 39.5 , Mean Corpuscular Volume 100H, Mean Corpuscular Hemoglobin 33.6H, Mean Corpuscular Hemoglobin Concent 33.6, Red Cell Distribution Width 14.6, Platelet Count 161, Mean Platelet Volume 8.5, Neutrophils (%) (Auto) 77.9H, Lymphocytes ( %) (Auto) 11.9L, Monocytes (%) (Auto) 8.1, Eosinophils (%) (Auto) 1.5, Basophils (%) (Auto) 0.6, Sodium Level 142, Potassium Level 4.2, Chloride Level 104, Carbon Dioxide Level 31, Anion Gap 7, Blood Urea Nitrogen 32H, Creatinine 1.1, Estimat Glomerular Filtration Rate 59.8, Glucose Level 86, Calcium Level 8.4L, Magnesium Level 1.8, Pro-B-Type Natriuretic Peptide 8859H, Digoxin Level 0.7L Height (Feet): 6 Height (Inches): 0.00 Weight (Pounds): 216 General Appearance: WD/WN, no apparent distress EENT: PERRL/EOMI Neck: non-tender, supple Cardiovascular: normal rate, regular rhythm, JVD - high Respiratory/Chest: lungs clear, decreased breath sounds Abdomen: normal bowel sounds, non tender, soft Extremities: normal range of motion, non-tender 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
[2017-07-18 20:00] VITALS: BP 140/66
[2017-07-18] MEDS: Vancomycin 750mg/NS 250ml 250 ML IVPB SCH (21:14)
[2017-07-18] MEDS: Atorvastatin 80mg tab GT SCH (21:14)
[2017-07-19] VITALS: BP 159/86
[2017-07-19] MEDS: Ipratropium 0.02% Inh Soln 2.5ml UD HHN SCH ×4 (03:15→15:06)
[2017-07-19 04:00] VITALS: BP 139/78
--- NOTE | 2017-07-19 04:00 | Progress Note ---
DATE: 07/18/2017 CARDIOLOGY PROGRESS NOTE SUBJECTIVE: The patient has less shortness of breath and congestion. Minimal hemoptysis. OBJECTIVE: VITAL SIGNS: Blood pressure is 140/66, pulse 95, respiratory rate 20, and afebrile. Monitor, atrial fibrillation. LUNGS: Good breath sounds. No wheezing. HEART: Irregularly irregular rhythm. Normal S1 and S2. ABDOMEN: Soft. EXTREMITIES: Trace edema. LABORATORY DATA: White count is 10.7 and hemoglobin 13.3. Magnesium is 1.8 and potassium 4.2. Pro-natriuretic peptide is 8800. IMPRESSION: 1. Resolving renal failure. 2. Acute on chronic diastolic and systolic congestive heart failure, clinically improving. 3. Paroxysmal atrial fibrillation with controlled ventricular response. 4. Acute deep venous thrombosis. 5. Probable pulmonary embolus. PLAN: 1. Full anticoagulation. 2. Maintenance diuretic dosing. 3. Continue beta-blockade and digitalis long-term for rate control. 4. Mobilize. 5. Titrate antihypertensive regimen based on clinical parameters. Víctor Kuhn M.D. DR: Charan JOB#: [id number] CC:
[2017-07-19] MEDS ORDERED: Acetaminophen 650mg/20.3ml ORAL PRN (04:45)
[2017-07-19 05:10] LABS: BASOPHILS % (AUTO) 0.6 % (0.0-2.0); EOSINOPHILS % (AUTO) 1.8 % (0.0-3.0); LYMPHOCYTES % (AUTO) 9.8 % (20.0-45.0); MEAN CORPUSCULAR HEMOGLOBIN 35.1 PG (27.0-31.0); MEAN CORPUSCULAR HGB CONC 35.1 G/DL (32.0-36.0); MEAN CORPUSCULAR VOLUME 100 FL (80-99); MEAN PLATELET VOLUME 8.7 FL (6.5-10.1); MONOCYTES % (AUTO) 7.1 % (1.0-10.0); NEUTROPHILS % (AUTO) 80.7 % (45.0-75.0); PLATELET COUNT 159 K/UL (150-450); RED BLOOD COUNT 3.89 M/UL (4.20-5.40); RED CELL DISTRIBUTION WIDTH 14.2 % (11.6-14.8); WHITE BLOOD COUNT 11.7 K/UL (4.8-10.8)
[2017-07-19 05:44] LABS: ANION GAP 5 mmol/L (5-15); CALCIUM 8.8 MG/DL (8.5-10.1); CARBON DIOXIDE 35 MMOL/L (21-32); CHLORIDE 104 MMOL/L (98-107); CREATININE 1.2 MG/DL (0.55-1.30); GLOMERULAR FILTRATION RATE 53.9 mL/min (>60); POTASSIUM 3.4 MMOL/L (3.5-5.1); SODIUM 144 MMOL/L (136-145)
[2017-07-19] MEDS: metroNIDAZOLE 500mg tab ORAL SCH ×2 (06:17→13:25)
[2017-07-19] MEDS: NovoLOG Insulin Flexpen SUBQ SCH ×2 (06:21→11:59)
[2017-07-19 08:00] VITALS: BP 145/69
[2017-07-19] MEDS ORDERED: Digoxin Elixir 0.125mg ORAL SCH (09:00)
[2017-07-19] MEDS ORDERED: Metoprolol Tartrate 50mg tab ORAL SCH (09:00)
[2017-07-19] MEDS: Venlafaxine HCl 37.5mg Tab ORAL SCH ×2 (09:11→13:25)
[2017-07-19] MEDS: Furosemide 40mg tab ORAL SCH (09:11)
[2017-07-19] MEDS: Losartan 50mg tab ORAL SCH (09:11)
[2017-07-19] MEDS: Enoxaparin 100mg Inj SUBQ SCH (09:17)
[2017-07-19 12:00] VITALS: BP 138/77
[2017-07-19] MEDS ORDERED: LIPITOR80 MG ORAL (13:20)
[2017-07-19] MEDS ORDERED: NOVOLOG100 UNITS1 SUBQ (13:20)
[2017-07-19] MEDS ORDERED: FLAGYL500 MG ORAL (13:20)
[2017-07-19] MEDS ORDERED: COZAAR50 MG ORAL (13:20)
[2017-07-19] MEDS ORDERED: PREDNISONE20 MG ORAL (13:20)
[2017-07-19] MEDS ORDERED: BUSPIRONE HCL10 M1 ORAL (13:20)
[2017-07-19] MEDS ORDERED: CEFEPIME-D1 GM/50 ML IVPB (13:20)
[2017-07-19] MEDS ORDERED: LANSOPRAZOLE30 MG ORAL (13:20)
[2017-07-19] MEDS ORDERED: NOVOLOG MI100 UNIT/3 SUBQ (13:20)
[2017-07-19] MEDS ORDERED: Vanco pharmacy to dose MISC (13:20)
[2017-07-19] MEDS ORDERED: METOPROLOL TART50 MG ORAL (13:20)
[2017-07-19] MEDS ORDERED: DIGOXIN0.125 MG/2 ORAL (13:20)
[2017-07-19] MEDS ORDERED: BENADRYL25 MG ORAL (13:20)
[2017-07-19] MEDS ORDERED: FUROSEMIDE40 MG ORAL (13:20)
[2017-07-19] MEDS ORDERED: EFFEXOR37.5 MG ORAL (13:20)
[2017-07-19] MEDS ORDERED: IPRATROPIU0.2 MG/1 M HHN (13:20)
--- NOTE | 2017-07-19 15:04 | Nephrology Progress Note ---
Assessment/Plan Assessment 1) Grace, I am suspecting cardio-renal syndrome, renal FX is improving with diuresis 2) Fluid overload/CHF 3) S/P respiratory failure 4) She has some metabolic alkalosis due to loop diuretics Plan: Will start her on lasix 40 mg po bid Continue on Cozaar 50 mg po bid Weight on standing scale Ok to discharge ? candidate for CRI Subjective Subjective She is feeling better, creat is down to 1.2, K+ is 3.4 Objective Objective Last 24 Hour Vital Signs Date Time Temp Pulse Resp B/P (MAP) Pulse Ox O2 Delivery O2 Flow Rate FiO2 07/19/17 12:00 80 07/19/17 12:00 97.7 75 20 138/77 95 Nasal Cannula 2.0 07/19/17 11:31 86 16 98 Nasal Cannula 2.0 28 07/19/17 11:20 78 16 95 Nasal Cannula 2.0 28 07/19/17 09:11 87 145/69 07/19/17 09:11 145/69 07/19/17 09:10 87 07/19/17 08:00 98.2 87 20 145/69 95 Nasal Cannula 2.0 07/19/17 08:00 89 07/19/17 07:45 88 20 98 Nasal Cannula 2.0 28 07/19/17 07:40 77 16 94 Nasal Cannula 2.0 28 07/19/17 07:40 94 Nasal Cannula 2.0 28 07/19/17 07:40 Nasal Cannula 2.0 28 07/19/17 04:00 98.1 71 16 139/78 94 Nasal Cannula 3.0 07/19/17 04:00 72 07/19/17 03:08 85 20 98 Nasal Cannula 2.0 28 07/19/17 03:00 80 20 96 Nasal Cannula 2.0 28 07/19/17 00:00 98.2 71 20 159/86 96 Nasal Cannula 2.0 07/19/17 00:00 70 07/18/17 22:43 79 20 98 Nasal Cannula 2.0 28 07/18/17 22:35 78 17 96 Nasal Cannula 2.0 28 07/18/17 21:15 140/66 07/18/17 21:15 75 140/66 07/18/17 20:15 95 Nasal Cannula 2.0 28 07/18/17 20:15 Nasal Cannula 2.0 28 07/18/17 20:06 75 20 98 Nasal Cannula 2.0 28 07/18/17 20:00 97.7 75 20 140/66 93 Nasal Cannula 3.0 07/18/17 20:00 74 17 95 Nasal Cannula 2.0 28 07/18/17 20:00 81 07/18/17 16:00 90 07/18/17 16:00 98.6 84 20 146/76 94 Nasal Cannula 2.0 07/18/17 15:05 86 20 95 Nasal Cannula 2.0 28 Intake and Output 07/19/17 07/20/17 19:00 07:00 Intake Total 240 ml Balance 240 ml Intake Oral 240 ml # Bowel Movements 1 Laboratory Tests 07/19/17 03:50: White Blood Count 11.7H, Red Blood Count 3.89L, Hemoglobin 13.7, Hematocrit 38.9 , Mean Corpuscular Volume 100H, Mean Corpuscular Hemoglobin 35.1H, Mean Corpuscular Hemoglobin Concent 35.1, Red Cell Distribution Width 14.2, Platelet Count 159, Mean Platelet Volume 8.7, Neutrophils (%) (Auto) 80.7H, Lymphocytes ( %) (Auto) 9.8L, Monocytes (%) (Auto) 7.1, Eosinophils (%) (Auto) 1.8, Basophils (%) (Auto) 0.6, Sodium Level 144, Potassium Level 3.4L, Chloride Level 104, Carbon Dioxide Level 35H, Anion Gap 5, Blood Urea Nitrogen 24H, Creatinine 1.2, Estimat Glomerular Filtration Rate 53.9, Glucose Level 76, Calcium Level 8.8 Height (Feet): 6 Height (Inches): 0.00 Weight (Pounds): 214 General Appearance: WD/WN, no apparent distress EENT: PERRL/EOMI, normal ENT inspection Neck: non-tender, normal alignment Cardiovascular: normal rate, regular rhythm, no JVD Respiratory/Chest: lungs clear, normal breath sounds Abdomen: non tender, soft Extremities: normal range of motion 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
--- NOTE | 2017-07-19 15:45 | Diagnostic Imaging Report ---
Indication: Reason For Exam: SOB Technique: One view of the chest Comparison: 07/16/2017 Findings: Left chest unifocal AICD is again demonstrated. There is increasing infiltrate at the right lung base. There may be decreased left perihilar atelectasis or infiltrate. The heart is enlarged. There is an old healed fracture deformity of the left shoulder. Impression: Increasing right basilar infiltrate Decreased left basilar atelectasis or infiltrate. Other stable findings as described
[2017-07-19] MEDS ORDERED: Tubing IV Secondary IV ONE ×2 (16:17→16:48)
[2017-07-19] MEDS ORDERED: NS 500ML ONE ×2 (16:17→16:48)
[2017-07-19] MEDS ORDERED: 1/2 NS 1000ml IV ONE (16:48)
[2017-07-19] MEDS ORDERED: D5 1/2NS 1000ml IV ONE (16:48)
[2017-07-19] MEDS ORDERED: Atorvastatin 80mg tab ORAL SCH (21:00)
--- NOTE | 2017-07-20 05:30 | Progress Note ---
DATE: 07/19/2017 CARDIOLOGY PROGRESS NOTE SUBJECTIVE: The patient continues to have improved renal function and resolution of congestive heart failure. Discharge planning is noted. OBJECTIVE: VITAL SIGNS: Blood pressure 138/77, pulse 75, and respirations 20. NECK: Supple. LUNGS: With coarse breath sounds. No wheezing. CARDIAC: Regular rhythm and rate. Normal S1 and S2 with a fourth heart sound. ABDOMEN: Soft and nontender. EXTREMITIES: With trace edema. IMPRESSION: 1. Acute on chronic diastolic and systolic congestive heart failure. 2. Paroxysmal atrial fibrillation. 3. Acute on chronic renal failure. 4. Acute deep vein thrombosis. 5. Probable pulmonary embolus. PLAN: 1. Continue full anticoagulation. 2. Maintain current cardiovascular regimen. 3. Titrate diuretics to maintenance dose oral therapy. 4. Discharge plan. Víctor Kuhn M.D. DR: KRYSTAL JOB#: [id number] CC:
[2017-07-20] MEDS ORDERED: BusPIRone 10mg Tab ORAL SCH (09:00)
--- NOTE | 2017-07-21 11:01 | Diagnostic Imaging Report ---
APPROVED REPORT CPT Code: 04990 Present Symptoms Shortness of breath BILATERAL: Imaging reveals a patent deep venous system bilaterally. There is no evidence of thrombus within the femoral, popliteal or tibial segments. The greater saphenous veins are also within normal limits. Doppler indicates normal spontaneous flow within these segments.
--- NOTE | 2017-07-22 16:39 | Discharge Summary ---
Discharge Summary Hospital Course Date of Admission Jul 06, 2017 at 06:40 Date of Discharge Jul 19, 2017 at 16:49 Admitting Diagnosis COPD EXCACERBATION HPI Arabella Staley is a 71 year old female who was admitted on Jul 06, 2017 at 06: 40 for Chronic Obstructive Pulmonary Disease,Exacerbation Hospital Course [id number] Discharge Discharge Disposition Patient was discharged to SNF/Subacute Facility(03) Discharge Diagnoses: Chantell Jackson NP Jul 22, 2017 16:39
--- NOTE | 2017-07-23 01:02 | Discharge Summary 2 SIG ---
DATE OF ADMISSION: 07/06/2017 DATE OF DISCHARGE: 07/19/2017 CONSULTANTS: 1. Víctor Kuhn M.D. 2. Ally Emanuel M.D. 3. Rolando Camara M.D. BRIEF HOSPITAL COURSE: The patient is a 71-year-old female, who is a resident of SNF was taken to [facility] for increased shortness of breath. She recently had a defibrillator placed. She has history of severe COPD and is on home O2. She used to be a heavy smoker. She has history of coronary artery disease, hypertension, CHF, depression, and COPD. On evaluation at ED, x-ray showed opacification of the left mid and lower lung, probably due to large pleural effusion. There was also extensive right basilar opacity, combination of pleural fluid and parenchymal consolidation/edema. She was initially placed on BiPAP and was given Lasix. CO2 was greater than 100 and she was eventually intubated at ER and was admitted to ICU. She had a rise in BUN and creatinine; worsening renal function most likely due to cardiorenal syndrome. She was having ventricular arrhythmias and was having recurring episodes of atrial fibrillation. She was digitalized for rate control. Echocardiogram done showed ejection fraction of 35% to 40%. Venous duplex was negative for DVT. Renal ultrasound was negative for hydronephrosis. She was given Lasix and Diamox. ProBNP was elevated. The patient has acute on chronic systolic and diastolic congestive heart failure and was given diuresis. Losartan was initially placed on hold. She was finally extubated on 07/11/2017. She did not pass initial swallow evaluation. She was placed on heparin for anticoagulation for possibility of percutaneous endoscopic gastrostomy tube placement if needed. She eventually passed a second swallow evaluation and anticoagulation was switched to Lovenox. She continued to have worsening WBC and had hemoptysis. Dr. Emanuel was consulted. The patient was started on vancomycin, cefepime, and Flagyl. Sputum culture showed growth of normal respiratory noel. She had a V/Q scan done that showed intermediate probability for pulmonary embolism. She was continued on anticoagulation with Lovenox. Renal failure improved. Losartan was eventually continued. She was given Cozaar 50 mg p.o. b.i.d. and Lasix 40 mg b.i.d. She was eventually cleared for discharge and the patient was transferred to [facility]. FINAL DIAGNOSES: 1. Acute respiratory failure status post intubation and extubation. 2. Acute congestive heart failure, systolic and diastolic in nature. 3. Chronic obstructive pulmonary disease. 4. Acute kidney injury on chronic kidney disease. 5. Hypertension. 6. Sepsis. Blood culture with coagulase-negative Staph. 7. Paroxysmal atrial fibrillation, on anticoagulation. 8. Probable pulmonary embolism. DISPOSITION: The patient was discharged to SNF. DISCHARGE MEDICATIONS: Refer to medication list. Jerel Decker M.D. I have been assigned to dictate discharge summary on this account and I was not involved in the patient's management. Chantell Jackson N.P. DR: ROME JOB#: [id number] CC: HUGH
== END 2017-07-19 16:49 | DRG 870 ==
LOC: EDBD 05:17 → EMR 05:30 → ICU 06:40 → EDBEDREQSVC 07:25 → EDBEDREQ 07:35 → 2W 07-12 13:08
DX: A41.9 Sepsis, unspecified organism (principal); J96.00 Acute respiratory failure, unspecified whether with hypoxia or hypercapnia; I26.99 Other pulmonary embolism without acute cor pulmonale; N17.9 Acute kidney failure, unspecified; I50.43 Acute on chronic combined systolic (congestive) and diastolic (congestive) heart failure; I47.2 Ventricular tachycardia; N18.3 Chronic kidney disease, stage 3 (moderate); J18.9 Pneumonia, unspecified organism; I13.0 Hypertensive heart and chronic kidney disease with heart failure and stage 1 through stage 4 chronic kidney disease, or unspecified chronic kidney disease; E44.1 Mild protein-calorie malnutrition; E87.2 Acidosis; E87.3 Alkalosis; I82.409 Acute embolism and thrombosis of unspecified deep veins of unspecified lower extremity; J44.9 Chronic obstructive pulmonary disease, unspecified; Z95.810 Presence of automatic (implantable) cardiac defibrillator; Z68.29 Body mass index [BMI] 29.0-29.9, adult; Z99.81 Dependence on supplemental oxygen; F32.9 Major depressive disorder, single episode, unspecified; F41.9 Anxiety disorder, unspecified; I48.0 Paroxysmal atrial fibrillation; E11.22 Type 2 diabetes mellitus with diabetic chronic kidney disease; I25.10 Atherosclerotic heart disease of native coronary artery without angina pectoris
CPT/HCPCS: 31500; 36415; 36600; 71010; 74000; 74230; 76775; 78579; 78580; 80048; 80053; 80061; 80162; 80202; 81001; 81050; 82043; 82248; 82550; 82553; 82575; 82803; 82962; 83735; 83880; 84100; 84156; 84443; 84484; 84550; 85007; 85025; 85379; 85730; 86850; 86900; 86901; 86920; 87040; 87070; 87081; 87181; 87205; 93005; 93306; 93970; 94002; 94003; 94640; 94660; 94664; 94760; A9503; J1815; J7620; J8499